=== PATIENT | male | born 1955 | race Caucasian/White ===

== ENCOUNTER 2020-12-19 06:11 | Inpatient (IN) | payer MEDICAID, SELFPAY ==
[2020-12-19] VITALS (12 sets, daily range): BP systolic 131–148; BP diastolic 59–84; PULSE 70–87; RESP 16–22; TEMP 36.3–37; O2SAT 91–96; BMI 41.1
--- NOTE | 2020-12-19 03:58 | PCM.HP.STD ---
HPI - General General Date of Admission: 12/19/20 HPI Narrative JAYDA MORE, is a 65 M with a significant history of hypertension; diabetes mellitus; asthma who presents to [facility] with a Covid-like symptoms. Patient was at [facility] ED 2 times. His rapid Covid antigen at [facility] ED was negative. His PCR came back to be positive. The first time he was sent home and then called back in for monoclonal antibody infusion. On his second visit patient was hypoxic and required 4 L of nasal cannula oxygen to maintain appropriate saturation. Patient reported that his Covid-like symptoms has progressed. It started about 6 days prior to presenting to [facility] ED. He described the symptoms as shortness of breath; disequilibrium with walking; muscle aches; poor appetite; dysgeusia; and dry cough. He denies any nausea vomiting, diarrhea or constipation. [facility], LATER [facility] Medical History Asthma Diabetes Home Medications Zyrtec-D DAILY 12/19/20 [History Last Taken 12/18/20] lisinopril 12/19/20 [History Last Taken Unknown] metformin 500 mg PO BID 12/19/20 [History Last Taken 12/18/20 10:00] pravastatin 10 mg PO QHS 12/19/20 [History Last Taken Unknown] Allergy/AdvReac Type Severity Reaction Status Date / Time acetaminophen [From [place]] AdvReac Mild Other Verified 12/19/20 04:07 empagliflozin AdvReac Vomiting Verified 12/19/20 04:06 [From [place]] hydrocodone [From [place]] AdvReac Other Verified 12/19/20 04:06 Family History Other CVA (cerebral vascular accident) Diabetes Surgical History (Updated 12/19/20 @ 04:[address] Michele Briones MD) History of prostate surgery Social History Smoking Status: Former smoker ROS ROS Narrative Constitutional: Reports anorexia. Denies fever, chills, fatigue, and change in weight Eyes: Denies blurry vision, change in eye color, change in vision, discharge from eye(s), double vision, erythema, eye pain, loss of vision or other HEENT: Denies abnormal hearing, dysphagia, ear pain, epistaxis, headache(s), hearing loss, nasal congestion, nasal discharge, post nasal drip, sinus pressure, sore throat or other Cardiovascular: Denies chest pain or palpitations. Respiratory/Chest: Reports dry cough and shortness of breath. Gastrointestinal: Denies abdominal pain, coffee ground emesis, constipation, diarrhea, dyspepsia, hematemesis, hematochezia, loose stools, melena, nausea, vomiting or other Genitourinary: Denies burning urination, difficulty urinating, dysuria, hematuria, nocturia, urinary frequency, urinary hesitancy, urinary incontinence, urinary urgency or other Musculoskeletal: Denies arthralgias, back pain, joint pain, joint stiffness, joint swelling, myalgias, neck pain or other Neurologic: Reports headache. Denies abnormal gait, abnormal speech, confusion, disequilibrium, dizziness, focal weakness, numbness, paresthesias, seizure-like activity, seizures, syncope, tingling, tremor(s) or other Psychiatric: Denies anxiety, depression, homicidal ideation, suicidal ideation or other Endocrinology: Denies change in body appearance, cold intolerance, excessive sweating, heat intolerance, polydipsia, polyuria or other Hematologic/Lymphatic: Denies anemia, easy bleeding, easy bruising, lymphadenopathy or other Integumentary: Denies rashes Allergic/Immunologic: Denies rhinitis, hives, eczema, asthma or other Vital Signs Vital Signs Vital Signs: Weight Weight: 126.4 kg Body Mass Index (BMI) 41.1 Physical Exam Narrative Physical exam: General: Obese Head: Normocephalic, atraumatic, no tenderness Eyes: PERRLA, EOMI ENT, no trauma, moist mucous membranes, no rhinorrhea Neck: Nontender, full range of motion, no spinal tenderness, deformities, step-off CVS: Regular rate and rhythm. S1-S2 present. No murmur, gallop or rub. Respiratory : Tachypnea clear to auscultation bilaterally, chest wall nontender, no wheezing Abdomen: Soft, nontender, nondistended, normal bowel sounds, no masses : Deferred Back: Nontender, no CVA tenderness, no midline spinal tenderness, deformities, step-offs Extremities: Nontender full range of motion, no trauma Skin: Normal color, no trauma, abrasions Neuro: Alert, oriented, cranial nerves II through XII grossly intact. Psychiatry: Normal mood. Normal affect. Not depressed. Not anxious. Assessment & Plan Assessment/Plan (1) Pneumonia due to COVID-19 virus: (2) Respiratory failure: QUALIFIERS: Chronicity: acute Respiratory failure complication: hypoxia Qualified Code(s): J96.01 - Acute respiratory failure with hypoxia PLAN: Acute hypoxemic respiratory failure secondary to COVID-19 pneumonia. Respiratory rate more than 20 and requiring supplemental oxygenation. Positive coronavirus PCR at outside ED Impression of chest x-ray by radiologist at outside hospital ED: Left lung infiltrate. Chest x-ray was independently interpreted by myself. Left lower lung infiltrate noted. Also a perihilar area with infiltrates with border of right heart not visualized. A CT brain at outside hospital ED did not show acute disease. Review of labs showed normal high sensitive pointing at outside hospital. Lactic acid at outside hospital was normal Check procalcitonin. Received Decadron at outside hospital. Received ceftriaxone and azithromycin at outside hospital. Ceftriaxone and azithromycin ordered. Estimated GFR at outside hospital is 37. AST 74 and ALT is 43. Remdesivir ordered. Trend CMP. Infectious disease consults for consideration of baricitinib. Tylenol for fever Mucinex ordered History of diabetes mellitus Not on insulin at home. In the setting of starting patient on Decadron will order Accu-Chek QA CHS and correction scale insulin. Hyponatremia Review of labs showed sodium of 129 at outside hospital. Patient received IV fluids at outside hospital. With COVID-19 will avoid fluid at this time. Trend CMP. Debility secondary to COVID-19 PT and OT to work with patient. BMI: 41.2. Complicates care. Lifestyle modification recommended. CKD stage IIIb Stable. Per discussion with outside hospital ED who had some available records creatinine clearance was about baseline. Trend CMP DVT prophylaxis: Subcutaneous Lovenox ordered. Charges/Coding Visit Charges Inpatient E&M: 18275 Init Hosp L3
--- NOTE | 2020-12-19 04:19 | NURSING ---
PANDEMIC DOCUMENTATION
[2020-12-19] MEDS: guaiFENesin 1,200 MG Tablet 1200 MG PO ×2 (04:38→22:18)
[2020-12-19 05:39] LABS: Absolute Lymphocyte Count 0.75 X10^3/uL (0.83-4.51); Absolute Neutrophil Count 2.1 X10^3/uL (2.0-7.7); Basophil# 0.01 X10^3/uL; Basophil% 0.3 % (0-1); Hematocrit 37.7 % (40-54); Hemoglobin 12.9 g/dL (13.0-16.5); Lymphocyte # 0.75 X10^3/ul (0.83-4.51); Lymphocyte % 25.3 % (19-41); Mean Corp Hgb Conc 34.2 g/dL (32-36); Mean Corpuscular Hgb 31.7 pg (27.0-32.0); Mean Corpuscular Volume 92.6 fL (80-94); Mean Platelet Vol. 9.8 fl (6.2-12.0); Monocyte# 0.12 X10^3/uL; NRBC Flagged by Analyzer 0 % (0-5); Neutrophil # 2.08 X10^3/uL (2.7-7.7); Neutrophil % 70.1 % (47-70); POSITIVE COUNT YES; POSITIVE MORPHOLOGY YES; Platelet Count 61 K/mm3 (150-450); RBC Distribution Width CV 13.7 % (11.6-14.6); Red Blood Count 4.07 M/mm3 (4.6-6.2)
[2020-12-19 05:43] LABS: Differential Indicated SCAN CRITERIA MET
[2020-12-19 06:12] LABS: ALB/GLOB Ratio 0.6 RATIO (0.9-2.4); AST(SGOT) 64 U/L (15-37); Alanine Aminotransfer ALT/SGPT 41 U/L (16-61); Albumin, Serum 2.8 g/dL (3.2-5.0); Alkaline Phosphatase 58 U/L (45-117); Anion Gap 10 (5-15); BUN 26 mg/dL (7-18); BUN/Creat Ratio 17.3 RATIO (10-20); Calcium,Total 8.1 mg/dL (8.5-10.1); Chloride 102 mmol/L (98-107); EST Glomerular Filtration Rate 50 mL/min (>60); Est Glom Filt Rate - Afr Amer 61 mL/min (>60); Estimated Creatinine Clearance 50.41 ml/min; Globulin 4.7 g/dL (2.2-4.2); Glucose 147 mg/dL (74-106); Potassium 4.9 mmol/L (3.5-5.1); Protein, Total 7.5 g/dL (6.4-8.2); Sodium Level 132 mmol/L (136-145)
--- NOTE | 2020-12-19 09:47 | CT_ITS ---
STUDY: CTA CHEST REASON FOR EXAM: Male, 65 years old. Elevated Ddimer.Covid positive. RADIATION DOSAGE (If Supplied By Facility): CTDIvol = ( 12.67 ) mGy, DLP = ( 475.64 ) mGycm TECHNIQUE: The examination was performed with the intravenous administration of IV 100mL Isovue-370. Post-processing of the angiographic images was performed, with multiplanar reformation and 3D reconstruction. Individualized dose optimization techniques were used for this CT. COMPARISON: None. FINDINGS: Normal enhancement of the main pulmonary artery and right and left pulmonary arteries. Normal enhancement of the bilateral peripheral pulmonary arteries. There is no demonstrated pulmonary embolism. Normal thoracic aorta and visualized great vessels. There is no demonstrated aortic dissection. Normal heart and pericardium. Normal mediastinum. Normal hilar regions. Normal visualized trachea and bronchi. The lungs are well expanded. There are diffuse bilateral pulmonary infiltrates worse in the left hemithorax and in the lower lobes as well as upper lobes. Normal pleura. Normal chest wall structures. There are degenerative changes of thoracic spine. Fatty attrition of the liver. Mild splenomegaly. Small hiatal hernia. CT/CTA Chest W/WO Contrast IMPRESSION: No evidence of pulmonary embolism. Bilateral diffuse pulmonary infiltrates involving both upper and lower lobes as described. Electronically Signed: Mihai Jerome MD at 11:00 EDT , Service support ,
[2020-12-19] MEDS: dexAMETHasone 2 MG TABLET 6 MG PO (09:48)
[2020-12-19] MEDS: Enoxaparin 40 MG/0.4 ML Syringe SC ×2 (09:48→22:18)
[2020-12-19 11:03] LABS: Procalcitonin 0.12 ng/mL (0.00-0.09)
[2020-12-19] MEDS: Insulin Lispro 100 UNIT/ML INSULN.PEN SC ×3 (13:24→22:35)
[2020-12-19 13:36] LABS: Bedside Glucose 289 mg/dL (70-110)
--- NOTE | 2020-12-19 14:01 | PCM.CONS.GEN ---
Assessment & Plan Assessment/Plan (1) Pneumonia due to COVID-19 virus: PLAN: Unvaccinated. Covid started 12/12/20. On 4-5L NC here. On dex, remdesivir. Isolate until 01/01. Recommended vaccine once out of iso. Feeling better. Will follow, thank you (2) Respiratory failure: QUALIFIERS: Chronicity: acute Respiratory failure complication: hypoxia Qualified Code(s): J96.01 - Acute respiratory failure with hypoxia HPI Consult Data Date of Consult: 12/19/20 HPI Narrative HPI Narrative: JAYDA MORE, is a 65 M [facility], dyspnea, not feeling well. Sx started around 12/12/20, he thought it was sinusitis. Had some headache, sweats, fatigue, change in taste, dry cough. Unvaccinated. Lives with who is vaccinated and her son; both asymptomatic. Worsening sx, came back, transferred here, started on dex and remdesivir. Feeling better today, appetite has returned. Full ROS performed and neg except as noted above PFSH Medical History Asthma Diabetes Home Medications Zyrtec-D DAILY 12/19/20 [History Last Taken 12/18/20] lisinopril 12/19/20 [History Last Taken Unknown] metformin 500 mg PO BID 12/19/20 [History Last Taken 12/18/20 10:00] pravastatin 10 mg PO QHS 12/19/20 [History Last Taken Unknown] Allergy/AdvReac Type Severity Reaction Status Date / Time acetaminophen [From [place]] AdvReac Mild Other Verified 12/19/20 04:07 empagliflozin AdvReac Vomiting Verified 12/19/20 04:06 [From [place]] hydrocodone [From [place]] AdvReac Other Verified 12/19/20 04:06 Family History Other CVA (cerebral vascular accident) Diabetes Surgical History (Updated 12/19/20 @ 04:[address] Michele Briones MD) History of prostate surgery Social History Smoking Status: Former smoker Physical Exam Const alert, oriented x3 and no apparent distress General Appearance: cooperative Exam Limitations: no limitations HEENT normocephalic and head/scalp atraumatic Eyes PERRL and EOMs intact bilaterally Neck supple and No nodes Resp Auscultation: diminished lung sounds Cardio regular rate and regular rhythm GI normal to inspection, nondistended, normoactive bowel sounds Extremity no clubbing, cyanosis or edema Skin no rashes or lesions noted Neuro CN's II-XII intact bilaterally Medical Records Data Medical Nutrition Assessment Dietitian: Malnutrition Criteria Met Start: 12/19/20 09:54 Freq: Status: Active Protocol: Document 12/19/20 09:54 [facility] (Rec: 12/19/20 09:54 [facility] [id number]) Nutrition Malnutrition Evidence of Malnutrition Exists Yes Malnutrition (severe): Acute Illness/Injury Evidenced By Suboptimal Energy Intake ( Severe),Weight Loss (Severe) Clinical Problem Acute Disease or Injury Related Malnutrition Etiology related to COVID/resp failure and inability to consume adequate nutrition to meet est nutritional needs Signs/Symptoms related to <50% x 3-4 days 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 Problem Recommendation Dietitian Recommendations/Changes Will change diet to CHO Control w/ 120 ml glucerna shake w/ meals for nursing convenience Will d/c ONS w/ medpass Lab / Micro Data Result Diagrams: 12/19/20 05:15 12/19/20 05:15 Labs: Laboratory Results - last 24 hr 12/19/20 05:15: Procalcitonin 0.12 H 12/19/20 05:15: Sodium 132 L, Potassium 4.9, Chloride 102, Carbon Dioxide 20.0 L, Anion Gap 10, BUN 26 H, Creatinine 1.50 H, Estim Creat Clear Calc 50.41, Est GFR (MDRD) Af Amer 61, Est GFR (MDRD) Non-Af 50 L, BUN/Creatinine Ratio 17.3, Glucose 147 H, Calcium 8.1 L, Total Bilirubin 0.50, AST 64 H, ALT 41, Alkaline Phosphatase 58, Total Protein 7.5, Albumin 2.8 L, Globulin 4.7 H, Albumin/Globulin Ratio 0.6 L 12/19/20 05:15: WBC 3.0 L, RBC 4.07 L, Hgb 12.9 L, Hct 37.7 L, MCV 92.6, MCH 31.7, MCHC 34.2, RDW Std Deviation 47.0 H, RDW Coeff of Luke 13.7, Plt Count 61 L, MPV 9.8, Immature Gran % (Auto) 0.300, Neut % (Auto) 70.1 H, Lymph % (Auto) 25.3, [place] % (Auto) 4.0, Eos % (Auto) 0.0, Baso % (Auto) 0.3, Absolute Neuts (auto) 2.1, Absolute Lymphs (auto) 0.75 L, Nucleated RBC % 0 12/19/20 09:45: COVID-19 ([place]) Detected 12/19/20 13:17: POC Glucose 289 H Radiology Impression Chest CTA 12/19/20 09:47 IMPRESSION: No evidence of pulmonary embolism. Bilateral diffuse pulmonary infiltrates involving both upper and lower lobes as described. Electronically Signed: Mihai Jerome MD at 11:00 EDT , Service support ,
--- NOTE | 2020-12-19 14:13 | CASEMGMT ---
STEVIE LILLY assessment: Initial transition planning/care coordination assessment. RN MAXX introduced self and role at [facility], pt voices understanding and consents to assessment. Pt is on 5L nc in no distress and able to speak in full sentences. Pt is A/Ox4 and answers all questions appropriately. Pt states has no symptoms and states no concerns getting groceries/resources once home. Pt states has not been vaccinated for COVID. Care providers, pharmacy, and demographics verified/updated. Presentation: Direct admit from [facility] for COVID w/ hypoxia Admitting dx: COVID PCP: Kwame Krishna Specialists: elma Santiago; ayush Goldstein Preferred Pharmacy: [facility] Insurance: [employer] Prescription Benefit: [id number] Living Will/HPOA: Pt states does not have LW/HPOA and declines AD info. LNOK: Miguelina Redding, Living Arrangements: Pt states lives with in mobile home with no steps and states no concerns at home. Pt is independent with ADL's. Transportation: Pt states drives self and states no transportations concerns. DME/HHC: Pt states has a cpap thru [employer](which is closed) and last got supplies thru [facility]. Pt states no hx of HHC or SNF. Pt states no concerns with going home at time of discharge. Pt is semi-retired. Pt states does not smoke cigarettes or drink ETOH. Pt states no further concerns/needs. CM to follow for home oxygen and any further discharge planning/needs. Advised pt to ask for CM if any further questions/concerns/needs arise, voices understanding. Pt Goal: Home Plan: Home, pending home oxygen testing. [place] STEVIE LILLY
--- NOTE | 2020-12-19 14:41 | PCM.HOSP.N ---
Hospitalist Note Patient is a 65-year-old gentleman who presented with progressive shortness of breath with associated cough and generalized malaise. Symptoms started on 12/12/2020. Had apparently been seen at [facility] discharged home however his symptoms worsened resulting in patient presenting to the [facility]. An assessment of acute hypoxic respiratory failure secondary to SARS-CoV-2 pneumonia made admitted to a monitored bed for subsequent management Patient seen and examined, his initial assessment including history and physical, diagnostic data and management orders reviewed will follow
[2020-12-19 16:51] LABS: Bedside Glucose 284 mg/dL (70-110)
[2020-12-19] MEDS: Acetaminophen 325 MG Tablet 650 MG PO (22:25)
[2020-12-19 22:56] LABS: Bedside Glucose 269 mg/dL (70-110)
[2020-12-20] VITALS (9 sets, daily range): BP systolic 120–150; BP diastolic 65–90; PULSE 57–79; RESP 16–20; TEMP 36.3–36.4; O2SAT 91–94
[2020-12-20] MEDS: Acetaminophen 325 MG Tablet 650 MG PO ×3 (04:29→18:38)
[2020-12-20 06:58] LABS: Absolute Lymphocyte Count 0.73 X10^3/uL (0.83-4.51); Absolute Neutrophil Count 4.4 X10^3/uL (2.0-7.7); Hematocrit 37.5 % (40-54); Hemoglobin 12.9 g/dL (13.0-16.5); Lymphocyte # 0.73 X10^3/ul (0.83-4.51); Lymphocyte % 13.4 % (19-41); Mean Corp Hgb Conc 34.4 g/dL (32-36); Mean Corpuscular Hgb 31.5 pg (27.0-32.0); Mean Corpuscular Volume 91.5 fL (80-94); Mean Platelet Vol. 10.7 fl (6.2-12.0); Monocyte# 0.24 X10^3/uL; Monocyte% 4.4 % (0-10); NRBC Flagged by Analyzer 0 % (0-5); Neutrophil # 4.43 X10^3/uL (2.7-7.7); Neutrophil % 81.6 % (47-70); POSITIVE COUNT YES; Platelet Count 76 K/mm3 (150-450); RBC Distribution Width CV 13.2 % (11.6-14.6); RBC Distribution Width SD 44.5 fl (35.1-43.9); White Blood Count 5.4 K/mm3 (4.4-11.0)
[2020-12-20 07:27] LABS: ALB/GLOB Ratio 0.5 RATIO (0.9-2.4); AST(SGOT) 52 U/L (15-37); Alanine Aminotransfer ALT/SGPT 43 U/L (16-61); Albumin, Serum 2.5 g/dL (3.2-5.0); Alkaline Phosphatase 62 U/L (45-117); Anion Gap 11 (5-15); BUN 34 mg/dL (7-18); BUN/Creat Ratio 24.5 RATIO (10-20); Calcium,Total 8.7 mg/dL (8.5-10.1); Chloride 105 mmol/L (98-107); Creatinine, Serum 1.39 mg/dL (0.70-1.30); EST Glomerular Filtration Rate 55 mL/min (>60); Est Glom Filt Rate - Afr Amer 66 mL/min (>60); Globulin 4.7 g/dL (2.2-4.2); Glucose 221 mg/dL (74-106); Magnesium 1.9 mg/dL (1.6-2.6); Potassium 4.6 mmol/L (3.5-5.1); Protein, Total 7.2 g/dL (6.4-8.2); Sodium Level 134 mmol/L (136-145)
[2020-12-20] MEDS: Insulin Lispro 100 UNIT/ML INSULN.PEN SC ×4 (08:32→21:19)
[2020-12-20] MEDS: Enoxaparin 40 MG/0.4 ML Syringe SC ×2 (08:45→21:19)
[2020-12-20] MEDS: guaiFENesin 1,200 MG Tablet 1200 MG PO ×2 (08:45→21:19)
[2020-12-20] MEDS: dexAMETHasone 2 MG TABLET 6 MG PO (08:45)
[2020-12-20 08:56] LABS: Bedside Glucose 199 mg/dL (70-110)
--- NOTE | 2020-12-20 12:14 | PN.HOSP_ITS ---
Documented by User: Suzanna Roche [employer] 12/20/20 12:25 Subjective Subjective Patient seen and examined. Patient states that he is feeling better. Patient on 3 L nasal cannula oxygen. Patient sitting in bed no distress noted. Objective Data Objective Data Vital Signs: Vital Signs Temp Pulse Resp BP Pulse Ox 97.6 F L 62 16 120/65 93 12/20/20 10:00 12/20/20 10:00 12/20/20 10:00 12/20/20 10:00 12/20/20 10:00 Oxygen Flow Rate (L/min) 3 Oxygen Delivery Method Nasal Cannula Weight: 278 lb 10.629 oz Body Mass Index (BMI) 41.1 Intake & Output: Intake and Output for Last 24 Hours 12/18/20 12/19/20 12/20/20 23:59 23:59 23:59 Intake Total 700 / 1400 950 / 950 Balance 700 / 1400 950 / 950 Medical Nutrition Assessment Dietitian: Malnutrition Criteria Met Start: 12/19/20 09:54 Freq: Status: Active Protocol: Document 12/19/20 09:54 [facility] (Rec: 12/19/20 09:54 [facility] [id number]) Nutrition Malnutrition Evidence of Malnutrition Exists Yes Malnutrition (severe): Acute Illness/Injury Evidenced By Suboptimal Energy Intake ( Severe),Weight Loss (Severe) Clinical Problem Acute Disease or Injury Related Malnutrition Etiology related to COVID/resp failure and inability to consume adequate nutrition to meet est nutritional needs Signs/Symptoms related to <50% x 3-4 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 Recommendation Dietitian Recommendations/Changes Will change diet to CHO Control w/ 120 ml glucerna shake w/ meals for nursing convenience Will d/c ONS w/ medpass Lab / Micro Data Result Diagrams: 12/20/20 06:17 12/20/20 06:17 Labs: Laboratory Results - last 24 hr 12/19/20 09:45: COVID-19 ([facility]) Detected 12/19/20 13:17: POC Glucose 289 H 12/19/20 16:38: POC Glucose 284 H 12/19/20 22:33: POC Glucose 269 H 12/20/20 06:17: WBC 5.4, RBC 4.10 L, Hgb 12.9 L, Hct 37.5 L, MCV 91.5, MCH 31.5, MCHC 34.4, RDW Std Deviation 44.5 H, RDW Coeff of Luke 13.2, Plt Count 76 L, MPV 10.7, Immature Gran % (Auto) 0.600, Neut % (Auto) 81.6 H, Lymph % (Auto) 13.4 L, [place] % (Auto) 4.4, Eos % (Auto) 0.0, Baso % (Auto) 0.0, Absolute Neuts (auto) 4.4, Absolute Lymphs (auto) 0.73 L, Nucleated RBC % 0 12/20/20 06:17: Sodium 134 L, Potassium 4.6, Chloride 105, Carbon Dioxide 18.0 L , Anion Gap 11, BUN 34 H, Creatinine 1.39 H, Estim Creat Clear Calc 54.40, Est GFR (MDRD) Af Amer 66, Est GFR (MDRD) Non-Af 55 L, BUN/Creatinine Ratio 24.5 H, Glucose 221 H, Calcium 8.7, Magnesium 1.9, Total Bilirubin 0.30, AST 52 H, ALT 43, Alkaline Phosphatase 62, Total Protein 7.2, Albumin 2.5 L, Globulin 4.7 H, Albumin/Globulin Ratio 0.5 L 12/20/20 08:30: POC Glucose 199 H Micro: Microbiology 12/19/20 20:40 Urine, Clean Catch Legionella Antigen - Final 12/19/20 20:40 Urine, Clean Catch Streptococcus pneumoniae Antigen (M - Davida l Physical Exam Const alert, oriented x3 and no apparent distress HEENT Head and Scalp: normocephalic Eyes conjunctivae normal and no scleral icterus Neck full ROM and supple General: trachea midline Resp normal respiratory effort and normal air movement Effort and Inspection: able to speak in complete sentences and symmetric chest movement Auscultation: diminished lung sounds Cardio regular rate, regular rhythm, S1 normal heart sound and S2 normal heart sound GI normal to inspection, nondistended, normoactive bowel sounds, soft to palpation and non-tender Extremity normal to inspection, full ROM and no clubbing, cyanosis or edema Peripheral Pulses: Yes pulses 2+ throughout Skin no rashes or lesions noted, no wounds and skin turgor normal Neuro oriented x3, moves all extremities, no focal motor deficits and no sensory deficits noted Sensorium / Orientation: awake and alert Speech: speech normal Psych affect normal Assessment & Plan Assessment/Plan (1) Pneumonia due to COVID-19 virus: (2) Respiratory failure: QUALIFIERS: Chronicity: acute Respiratory failure complication: hypoxia Qualified Code(s): J96.01 - Acute respiratory failure with hypoxia PLAN: 1. Acute respiratory failure secondary to COVID-19 pneumonia -Infectious disease following -Continue remdesivir and Decadron -Encourage incentive spirometry -CBC and CMP daily -Procalcitonin 0.12 -PT and OT following 2. Hyponatremia -Improved sodium 133 today -Daily CMP ordered 3. Diabetes mellitus type II -Continue AC at bedtime blood sugars with sliding scale insulin as ordered -Continue to hold Metformin 4. CKD stage IIIb -Stable patient at baseline creatinine -CMP daily DVT prophylaxis-Lovenox This patient was seen by CORTNEY Rodriguez under the supervision of Dr. Robbins. Documented by User: Dr. Claude Robbins MD 12/20/20 13:49 Objective Data Lab / Micro Data Result Diagrams: 12/20/20 06:17 12/20/20 06:17 Assessment & Plan Addt'l Comments This patient was seen in conjunction with CORTNEY Rodriguez . I have independently interviewed and examined the patient and reviewed pertinent historical, laboratory, and other data. Please refer to CORTNEY Rodriguez note for details of this patient's presentation, findings, and recommendations. I have reviewed CORTNEY Rodriguez note and concur with documented findings. In brief, patient is a 65-year-old gentleman unvaccinated against COVID-19 presented with progressive shortness of breath and assessment of SARS-CoV-2 pneumonia made admitted to monitored bed for subsequent management Physical Examination: GENERAL: cooperative HEENT: Atraumatic; EYES; Anicteric, Normal Conjunctiva NECK; supple, normal thyroid, RESPIRATORY: Diminished to auscultation CARDIOVASCULAR: Regular S1 S2, GI: soft, normoactive bowel sounds, : No Renal angle tenderness; EXTREMITIES: No edema, no clubbing, MUSCULOSKELETAL: no muscle waisting NEURO: Awake; no lateralizing signs. SKIN: No Rash PSYCH; Flat affect Assessment: 1. Acute hypoxic respiratory failure 2. SARS-CoV-2 pneumonia 3. Diabetes mellitus type 2 with hyperglycemia 4. CKD type III a 5. Essential hypertension 6. Dyslipidemia 7. Morbid obesity with BMI of 41.2 8. Physical deconditioning Recommendations: 1. I have discussed the results of my overview and impressions with the patient 2. Options for management were reviewed Charges/Coding Visit Charges Inpatient E&M: 85877 Subs Hosp L3
[2020-12-20 12:45] LABS: Bedside Glucose 320 mg/dL (70-110)
[2020-12-20] MEDS: Insulin Lispro 100 UNIT/ML INSULN.PEN 10 UNIT SC (16:44)
[2020-12-20 17:00] LABS: Bedside Glucose 315 mg/dL (70-110)
[2020-12-20 21:36] LABS: Bedside Glucose 338 mg/dL (70-110)
[2020-12-21] VITALS (13 sets, daily range): BP systolic 135–149; BP diastolic 44–84; PULSE 55–89; RESP 18–24; TEMP 36.3–36.7; O2SAT 90–100
--- NOTE | 2020-12-21 01:55 | PCS.PANDOC ---
PANDEMIC DOCUMENTATION INITIATED: Date: 10/17/2020 Time: 190
[2020-12-21 07:21] LABS: Absolute Lymphocyte Count 0.73 X10^3/uL (0.83-4.51); Absolute Neutrophil Count 5.2 X10^3/uL (2.0-7.7); Hematocrit 36.4 % (40-54); Hemoglobin 12.5 g/dL (13.0-16.5); Lymphocyte # 0.73 X10^3/ul (0.83-4.51); Lymphocyte % 11.7 % (19-41); Mean Corp Hgb Conc 34.3 g/dL (32-36); Mean Corpuscular Hgb 31.3 pg (27.0-32.0); Mean Corpuscular Volume 91.2 fL (80-94); Mean Platelet Vol. 10.5 fl (6.2-12.0); Monocyte# 0.27 X10^3/uL; Monocyte% 4.3 % (0-10); NRBC Flagged by Analyzer 0 % (0-5); Neutrophil # 5.17 X10^3/uL (2.7-7.7); Neutrophil % 82.9 % (47-70); POSITIVE COUNT YES; Platelet Count 88 K/mm3 (150-450); RBC Distribution Width CV 13.2 % (11.6-14.6); RBC Distribution Width SD 44.4 fl (35.1-43.9); Red Blood Count 3.99 M/mm3 (4.6-6.2); White Blood Count 6.2 K/mm3 (4.4-11.0)
[2020-12-21 07:47] LABS: ALB/GLOB Ratio 0.6 RATIO (0.9-2.4); AST(SGOT) 44 U/L (15-37); Alanine Aminotransfer ALT/SGPT 44 U/L (16-61); Albumin, Serum 2.5 g/dL (3.2-5.0); Alkaline Phosphatase 64 U/L (45-117); Anion Gap 8 (5-15); BUN 35 mg/dL (7-18); BUN/Creat Ratio 26.5 RATIO (10-20); Calcium,Total 8.7 mg/dL (8.5-10.1); Chloride 106 mmol/L (98-107); Creatinine, Serum 1.32 mg/dL (0.70-1.30); EST Glomerular Filtration Rate 58 mL/min (>60); Est Glom Filt Rate - Afr Amer 70 mL/min (>60); Estimated Creatinine Clearance 57.28 ml/min; Globulin 4.4 g/dL (2.2-4.2); Glucose 254 mg/dL (74-106); Potassium 4.7 mmol/L (3.5-5.1); Protein, Total 6.9 g/dL (6.4-8.2); Sodium Level 135 mmol/L (136-145)
[2020-12-21] MEDS: Enoxaparin 40 MG/0.4 ML Syringe SC ×2 (08:10→21:40)
[2020-12-21] MEDS: guaiFENesin 1,200 MG Tablet 1200 MG PO ×2 (08:11→21:40)
[2020-12-21] MEDS: dexAMETHasone 2 MG TABLET 6 MG PO (08:11)
[2020-12-21] MEDS: Insulin Lispro 100 UNIT/ML INSULN.PEN 10 UNIT SC ×3 (08:11→16:11)
[2020-12-21] MEDS: Insulin Lispro 100 UNIT/ML INSULN.PEN SC ×4 (08:12→21:37)
[2020-12-21 08:36] LABS: Bedside Glucose 233 mg/dL (70-110)
--- NOTE | 2020-12-21 09:22 | PCM.PN.HOSP ---
Documented by User: Suzanna Roche NP-C 12/21/20 09:51 Subjective Subjective Seen and examined. Patient requiring much more oxygen today went from 4 L nasal cannula oxygen to 15 L nasal cannula oxygen. Patient expresses shortness of breath with exertion. Patient does recover after period of 5 treatment 10 minutes of rest. Objective Data Objective Data Vital Signs: Vital Signs Temp Pulse Resp BP Pulse Ox 98.1 F 79 18 135/59 H 93 12/21/20 08:02 12/21/20 08:02 12/21/20 08:02 12/21/20 08:02 12/21/20 08:15 Oxygen Flow Rate (L/min) 3 Oxygen Delivery Method Nasal Cannula Weight: 278 lb 10.629 oz Body Mass Index (BMI) 41.1 Intake & Output: Intake and Output for Last 24 Hours 12/19/20 12/20/20 12/21/20 23:59 23:59 23:59 Intake Total 700 / 1400 1200 / 1200 900 / 900 Balance 700 / 1400 1200 / 1200 900 / 900 Medical Nutrition Assessment Dietitian: Malnutrition Criteria Met Start: 12/19/20 09:54 Freq: Status: Active Protocol: Document 12/19/20 09:54 SLA (Rec: 12/19/20 09:54 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 Problem Recommendation Dietitian Recommendations/Changes Will change diet to CHO Control w/ 120 ml glucerna shake w/ meals for nursing convenience Will d/c ONS w/ medpass Lab / Micro Data Result Diagrams: 12/21/20 06:48 12/21/20 06:48 Labs: Laboratory Results - last 24 hr 12/20/20 12:34: POC Glucose 320 H 12/20/20 16:42: POC Glucose 315 H 12/20/20 21:11: POC Glucose 338 H 12/21/20 06:48: WBC 6.2, RBC 3.99 L, Hgb 12.5 L, Hct 36.4 L, MCV 91.2, MCH 31.3, MCHC 34.3, RDW Std Deviation 44.4 H, RDW Coeff of Luke 13.2, Plt Count 88 L, MPV 10.5, Immature Gran % (Auto) 1.100 H, Neut % (Auto) 82.9 H, Lymph % (Auto) 11.7 L, [place] % (Auto) 4.3, Eos % (Auto) 0.0, Baso % (Auto) 0.0, Absolute Neuts (auto) 5.2, Absolute Lymphs (auto) 0.73 L, Nucleated RBC % 0 12/21/20 06:48: Sodium 135 L, Potassium 4.7, Chloride 106, Carbon Dioxide 21.0, Anion Gap 8, BUN 35 H, Creatinine 1.32 H, Estim Creat Clear Calc 57.28, Est GFR (MDRD) Af Amer 70, Est GFR (MDRD) Non-Af 58 L, BUN/Creatinine Ratio 26.5 H, Glucose 254 H, Calcium 8.7, Total Bilirubin 0.40, AST 44 H, ALT 44, Alkaline Phosphatase 64, Total Protein 6.9, Albumin 2.5 L, Globulin 4.4 H, Albumin/Globulin Ratio 0.6 L 12/21/20 07:51: POC Glucose 233 H Micro: Microbiology 12/19/20 20:40 Urine, Clean Catch Legionella Antigen - Final 12/19/20 20:40 Urine, Clean Catch Streptococcus pneumoniae Antigen (M - Final Physical Exam Const alert, oriented x3 and no apparent distress HEENT normocephalic and head/scalp atraumatic Eyes conjunctivae normal and no scleral icterus Neck full ROM and supple General: trachea midline Resp normal respiratory effort Effort and Inspection: able to speak in complete sentences and symmetric chest movement Auscultation: diminished lung sounds Cardio regular rate, regular rhythm, S1 normal heart sound and S2 normal heart sound GI normal to inspection, nondistended, normoactive bowel sounds, soft to palpation and non-tender Extremity normal to inspection, full ROM and no clubbing, cyanosis or edema Skin no rashes or lesions noted, no wounds and skin turgor normal Neuro oriented x3, moves all extremities, no focal motor deficits and no sensory deficits noted Sensorium / Orientation: awake and alert Speech: speech normal Psych affect normal Assessment & Plan Assessment/Plan (1) Pneumonia due to COVID-19 virus: (2) Respiratory failure: QUALIFIERS: Chronicity: acute Respiratory failure complication: hypoxia Qualified Code(s): J96.01 - Acute respiratory failure with hypoxia PLAN: 1. Acute respiratory failure secondary to COVID-19 pneumonia -Infectious disease following -Pulmonology consulted, discussed case with Dr. Ho. -Continue remdesivir and Decadron -Encourage incentive spirometry -CBC and CMP daily -Patient increased oxygen needs, was originally on 4 L nasal cannula at approximately 7 AM this morning however when patient got up to go the bathroom required 15 L nasal cannula oxygen. Patient currently on air Vo 45 L, 85%. Tolerating well -PT and OT following -Due to increased oxygen needs and worsening symptomology ferritin, LDH, CRP ordered and are elevated. D-dimer pending 2. Hyponatremia -Improved sodium 135 today -Daily CMP ordered 3. Diabetes mellitus type II -Continue AC at bedtime blood sugars with sliding scale insulin as ordered -Continue to hold Metformin 4. CKD stage IIIb -Stable patient at baseline creatinine -CMP daily DVT prophylaxis-Lovenox This patient was seen by CORTNEY Rodriguez under the supervision of Dr. Robbins. Documented by User: Dr. Claude Robbins MD 12/21/20 10:00 Objective Data Lab / Micro Data Result Diagrams: 12/21/20 06:48 12/21/20 06:48 Assessment & Plan Addt'l Comments This patient was seen in conjunction with CORTNEY Rodriguez . I have independently interviewed and examined the patient and reviewed pertinent historical, laboratory, and other data. Please refer to CORTNEY Rodriguez note for details of this patient's presentation, findings, and recommendations. I have reviewed CORTNEY Rodriguez note and concur with documented findings. In brief, patient is a 65-year-old gentleman unvaccinated against COVID-19 presented with progressive shortness of breath and assessment of SARS-CoV-2 pneumonia made admitted to monitored bed for subsequent management 03/23/2020; patient seen this minute rather rapid deterioration in patient oxygen saturation requiring patient being switched from oxygen via nasal cannula to Vapotherm. Ordered markers of inflammation to determine qualification for baricitinib. Consult subsequently placed to both infectious disease as well as ID Physical Examination: GENERAL: cooperative HEENT: Atraumatic; EYES; Anicteric, Normal Conjunctiva NECK; supple, normal thyroid, RESPIRATORY: Diminished to auscultation CARDIOVASCULAR: Regular S1 S2, GI: soft, normoactive bowel sounds, : No Renal angle tenderness; EXTREMITIES: No edema, no clubbing, MUSCULOSKELETAL: no muscle waisting NEURO: Awake; no lateralizing signs. SKIN: No Rash PSYCH; Flat affect Assessment: 1. Acute hypoxic respiratory failure 2. SARS-CoV-2 pneumonia 3. Diabetes mellitus type 2 with hyperglycemia 4. CKD type III a 5. Essential hypertension 6. Dyslipidemia 7. Morbid obesity with BMI of 41.2 8. Physical deconditioning Recommendations: 1. I have discussed the results of my overview and impressions with the patient 2. Options for management were reviewed Charges/Coding Visit Charges Inpatient E&M: 44888 Subs Hosp L3
[2020-12-21 09:46] LABS: Ferritin 547 ng/mL (26-388); LDH 337 U/L (87-241)
[2020-12-21 11:15] LABS: Bedside Glucose 242 mg/dL (70-110)
--- NOTE | 2020-12-21 12:11 | CON.PCM.CC_ITS ---
Assessment & Plan Assessment/Plan (1) Respiratory failure: QUALIFIERS: Chronicity: acute Respiratory failure complication: hypoxia Qualified Code(s): J96.01 - Acute respiratory failure with hypoxia (2) Pneumonia due to COVID-19 virus: PLAN: RECOMMENDATIONS: 1. Continue to wean FiO2 to maintain oxygen saturations at or above 90%. 2. Follow-up with infectious diseases regarding possible baricitinib administration. 3. Continue remdesivir to complete 5-day treatment course. Continue to monitor liver and renal function. 4. Continue Decadron to complete 10 days of therapy. 5. Continue Lovenox twice daily as ordered. 6. Consider starting empiric antimicrobials, given clinical decompensation. 7. Recheck D-dimer. 8. Awake prone positioning was encouraged. 9. BiPAP can be utilized if oxygenation status worsens. IMPRESSIONS: 1. Acute hypoxemic respiratory failure secondary to COVID-19 pneumonia Symptom onset was initially around December 12. Over the course of his hospitalization, the patient's oxygenation status has slowly worsened. He is now requiring heated high flow oxygen. The patient has been maintained on remdesivir, Decadron and Lovenox. Given clinical decompensation, he may be a candidate for baricitinib. In addition to the aforementioned, given his clinical worsening, recommend starting empiric antimicrobials. Diuretics can be utilized as needed to maintain euvolemic state. Awake prone positioning was encouraged. 2. Morbid obesity/diabetes mellitus/chronic kidney disease Complicates care, management, recovery and prognosis. Continue home medications as indicated. This note was generated with [employer] dictation software. It may contain incorrect words, spelling, and punctuation that were not noted in checking the note before signing. HPI Consult Data Date of Consult: 12/21/20 HPI Narrative Reason for Consultation: Acute hypoxemic respiratory failure secondary to COVID- 19 pneumonia HPI Narrative: The patient is a 65-year-old male, with a history as outlined below, who presented from [facility] on December 19 with cough, malaise, dyspnea and hypoxemia. The patient initially tested positive for coronavirus and was referred to receive monoclonal antibody infusion. However, the patient was noted to be hypoxemic and was therefore no longer a candidate. He is unvac cinated. 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 On presentation, the patient was initially noted to be afebrile and hemodynamically stable. He was maintaining appropriate oxygen saturations on nasal cannula supplemental O2 at 5 L/min. Initial laboratory evaluation reveale d evidence of thrombocytopenia with a platelet count of 61,000. Chemistry profile was notable for a sodium of 132, BUN of 26 and creatinine of 1.50. AST was mildly elevated to 64. Procalcitonin was noted to be 0.12. Coronavirus PCR was positive. CTA chest showed no evidence for pulmonary embolism, but did demonstrate bilateral airspace disease. The patient was placed on remdesivir, Decadron and prophylactic Lovenox. He was subsequently admitted to the progressive care unit for further management. Over the course of his hospitalization, the patient's oxygenation status has slowly worsened. This morning, the patient had to be transitioned from nasal cannula supplemental O2 to Airvo heated high flow with an FiO2 requirement of 85% and flow rate of 45 L/min. [facility] Medical History Asthma Diabetes Home Medications Zyrtec-D DAILY 12/19/20 [History Last Taken 12/18/20] lisinopril 12/19/20 [History Last Taken Unknown] metformin 500 mg PO BID 12/19/20 [History Last Taken 12/18/20 10:00] pravastatin 10 mg PO QHS 12/19/20 [History Last Taken Unknown] Allergy/AdvReac Type Severity Reaction Status Date / Time acetaminophen [From Minerva] AdvReac Mild Other Verified 12/19/20 04:07 empagliflozin AdvReac Vomiting Verified 12/19/20 04:06 [From Jardiance] hydrocodone [From Minerva] AdvReac Other Verified 12/19/20 04:06 Family History Other CVA (cerebral vascular accident) Diabetes Surgical History (Updated 12/19/20 @ 04:[address] Michele Briones MD) History of prostate surgery Social History Smoking Status: Former smoker ROS Constitutional Constitutional: Reports fatigue, malaise and weakness Eyes Eyes: Denies blurry vision or change in vision ENT HEENT: Reports nasal congestion and nasal discharge; Denies dizziness, dysphagia or epistaxis Cardiovascular Cardiovascular: Reports dyspnea; Denies chest pain Respiratory/Chest Respiratory/Chest: Reports cough and dyspnea Gastrointestinal Gastrointestinal: Denies abdominal pain, diarrhea, nausea or vomiting Genitourinary Genitourinary: Denies difficulty urinating Musculoskeletal Musculoskeletal: Reports myalgias; Denies arthralgias Integumentary Integumentary: Denies lesions, rash or skin ulcer Neurologic Neurologic: Denies abnormal gait, abnormal speech or confusion Psychiatric Psychiatric: Denies anxiety or depression Endocrine Endocrinology: Reports fatigue Hematologic/Lymphatic Hematologic/Lymphatic: Denies easy bleeding or easy bruising Physical Exam Const alert and no apparent distress Constitutional Narrative: Sitting in bedside recliner on Airvo heated high flow. General Appearance: cooperative Nutritional Appearance: morbidly obese HEENT normocephalic, head/scalp atraumatic and moist oral mucous membranes Eyes PERRL and EOMs intact bilaterally Neck supple General: trachea midline Chest inspection of chest normal Resp Auscultation: diminished lung sounds Cardio regular rate and regular rhythm GI normal to inspection, nondistended, normoactive bowel sounds Extremity no clubbing, cyanosis or edema Skin no rashes or lesions noted Neuro moves all extremities and no focal motor deficits Psych cooperative and affect normal Medical Records Data Medical Nutrition Assessment Dietitian: Malnutrition Criteria Met Start: 12/19/20 09:54 Freq: Status: Active Protocol: Document 12/19/20 09:54 NICOLE (Rec: 12/19/20 09:54 [facility] [id number]) Nutrition Malnutrition Evidence of Malnutrition Exists Yes Malnutrition (severe): Acute Illness/Injury Evidenced By Suboptimal Energy Intake ( Severe),Weight Loss (Severe) Clinical Problem Acute Disease or Injury Related Malnutrition Etiology related to COVID/resp failure and inability to consume adequate nutrition to meet est nutritional needs Signs/Symptoms related to <50% x 3-4 days and 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 Problem Recommendation Dietitian Recommendations/Changes Will change diet to CHO Control w/ 120 ml glucerna shake w/ meals for nursing convenience Will d/c ONS w/ medpass Lab / Micro Data Result Diagrams: 12/21/20 06:48 12/21/20 06:48 Labs: Laboratory Results - last 24 hr 12/20/20 12:34: POC Glucose 320 H 12/20/20 16:42: POC Glucose 315 H 12/20/20 21:11: POC Glucose 338 H 12/21/20 06:48: WBC 6.2, RBC 3.99 L, Hgb 12.5 L, Hct 36.4 L, MCV 91.2, MCH 31.3, MCHC 34.3, RDW Std Deviation 44.4 H, RDW Coeff of Luke 13.2, Plt Count 88 L, MPV 10.5, Immature Gran % (Auto) 1.100 H, Neut % (Auto) 82.9 H, Lymph % (Auto) 11.7 L, [place] % (Auto) 4.3, Eos % (Auto) 0.0, Baso % (Auto) 0.0, Absolute Neuts (auto) 5.2, Absolute Lymphs (auto) 0.73 L, Nucleated RBC % 0 12/21/20 06:48: Sodium 135 L, Potassium 4.7, Chloride 106, Carbon Dioxide 21.0, Anion Gap 8, BUN 35 H, Creatinine 1.32 H, Estim Creat Clear Calc 57.28, Est GFR (MDRD) Af Amer 70, Est GFR (MDRD) Non-Af 58 L, BUN/Creatinine Ratio 26.5 H, Glucose 254 H, Calcium 8.7, Total Bilirubin 0.40, AST 44 H, ALT 44, Alkaline Phosphatase 64, Total Protein 6.9, Albumin 2.5 L, Globulin 4.4 H, Albumin/Globulin Ratio 0.6 L 12/21/20 06:48: Ferritin 547 H, Lactate Dehydrogenase 337 H, C-React Prot Ext Range 18.10 H 12/21/20 07:51: POC Glucose 233 H 12/21/20 09:58: D-Dimer Quant (PE/DVT) 0.40 12/21/20 11:10: POC Glucose 242 H Charges/Coding Visit Charges Inpatient E&M: 98666 Init Hosp L3
--- NOTE | 2020-12-21 13:45 | PN.ID_ITS ---
Physical Exam Narrative Worsened O2. Feeling ok, no fever, no chest pain, no sputum Const alert General Appearance: cooperative Resp Auscultation: diminished lung sounds Cardio Rate: tachycardic GI normal to inspection, nondistended, normoactive bowel sounds Skin no rashes or lesions noted ID ID: Route of nutrition/ use of supplements: [] Nutritional Intake: [] IV Site: [] Land Catheter: [] Assessment & Plan Assessment/Plan (1) Pneumonia due to COVID-19 virus: PLAN: Unvaccinated. Covid started 12/12/20. On 4-5L NC here, now much worsened, on airvo. On dex, remdesivir. Isolate until 01/01. Recommended vaccine once out of iso. Reviewed EUA and risks/benefits, we agree to start bar icitinib. Will follow (2) Respiratory failure: QUALIFIERS: Chronicity: acute Respiratory failure complication: hypoxia Qualified Code(s): J96.01 - Acute respiratory failure with hypoxia
[2020-12-21 16:16] LABS: Bedside Glucose 295 mg/dL (70-110)
[2020-12-21 17:44] LABS: M R Staph aureus DNA By PCR Negative (Negative); Probe Check PASS; Specimen Processing Control PASS
[2020-12-21 21:55] LABS: Bedside Glucose 366 mg/dL (70-110)
[2020-12-21] MEDS: Acetaminophen 325 MG Tablet 650 MG PO (22:03)
[2020-12-22] VITALS (13 sets, daily range): BP systolic 120–150; BP diastolic 51–96; PULSE 46–77; RESP 16–18; TEMP 36.6–37; O2SAT 90–100
[2020-12-22 06:38] LABS: Basophil# 0.01 X10^3/uL; Basophil% 0.2 % (0-1); Hematocrit 35.4 % (40-54); Hemoglobin 12.3 g/dL (13.0-16.5); Lymphocyte % 17.6 % (19-41); Mean Corp Hgb Conc 34.7 g/dL (32-36); Mean Corpuscular Hgb 31.3 pg (27.0-32.0); Mean Corpuscular Volume 90.1 fL (80-94); Mean Platelet Vol. 10.4 fl (6.2-12.0); Monocyte% 3.9 % (0-10); NRBC Flagged by Analyzer 0 % (0-5); Neutrophil # 3.95 X10^3/uL (2.7-7.7); Neutrophil % 77.5 % (47-70); POSITIVE COUNT YES; POSITIVE MORPHOLOGY YES; Platelet Count 96 K/mm3 (150-450); RBC Distribution Width CV 13.2 % (11.6-14.6); RBC Distribution Width SD 43.7 fl (35.1-43.9); Red Blood Count 3.93 M/mm3 (4.6-6.2); White Blood Count 5.1 K/mm3 (4.4-11.0)
[2020-12-22 06:58] LABS: Differential Indicated SCAN CRITERIA MET
[2020-12-22 07:23] LABS: ALB/GLOB Ratio 0.6 RATIO (0.9-2.4); AST(SGOT) 57 U/L (15-37); Alanine Aminotransfer ALT/SGPT 45 U/L (16-61); Albumin, Serum 2.5 g/dL (3.2-5.0); Alkaline Phosphatase 59 U/L (45-117); Anion Gap 7 (5-15); BUN 36 mg/dL (7-18); BUN/Creat Ratio 25.9 RATIO (10-20); Calcium,Total 8.5 mg/dL (8.5-10.1); Chloride 107 mmol/L (98-107); Creatinine, Serum 1.39 mg/dL (0.70-1.30); EST Glomerular Filtration Rate 55 mL/min (>60); Est Glom Filt Rate - Afr Amer 66 mL/min (>60); Globulin 4.4 g/dL (2.2-4.2); Glucose 207 mg/dL (74-106); Protein, Total 6.9 g/dL (6.4-8.2); Reactive Lymphocyte 1+; Sodium Level 136 mmol/L (136-145)
[2020-12-22] MEDS: Insulin Lispro 100 UNIT/ML INSULN.PEN SC ×4 (08:17→22:10)
[2020-12-22] MEDS: Insulin Lispro 100 UNIT/ML INSULN.PEN 10 UNIT SC ×3 (08:17→16:18)
[2020-12-22] MEDS: guaiFENesin 1,200 MG Tablet 1200 MG PO ×2 (08:18→22:07)
[2020-12-22] MEDS: dexAMETHasone 2 MG TABLET 6 MG PO (08:18)
[2020-12-22] MEDS: Enoxaparin 40 MG/0.4 ML Syringe SC ×2 (08:18→22:07)
[2020-12-22 10:58] LABS: Bedside Glucose 187 mg/dL (70-110)
[2020-12-22 11:17] LABS: Bedside Glucose 406 mg/dL (70-110)
--- NOTE | 2020-12-22 12:41 | PN.HOSP_ITS ---
Subjective Subjective No issues overnight, given his clinical worsening continue with his baricitinib as well as remdesivir and empiric antibiotics, remains on air Vo Objective Data Objective Data Vital Signs: Vital Signs Temp Pulse Resp BP Pulse Ox 97.9 F 62 18 124/68 H 98 12/22/20 08:14 12/22/20 08:14 12/22/20 08:14 12/22/20 08:14 12/22/20 11:00 Oxygen Flow Rate (L/min) 50 Oxygen Delivery Method Airvo Weight: 278 lb 10.629 oz Body Mass Index (BMI) 41.1 Intake & Output: Intake and Output for Last 24 Hours 12/21/20 12/22/20 12/23/20 03:59 03:59 03:59 Intake Total 750 / 750 1850 / 1850 290 / 290 Output Total 400 / 400 600 / 600 Balance 750 / 750 1450 / 1450 -310 / -310 Medical Nutrition Assessment Dietitian: Malnutrition Criteria Met Start: 12/19/20 09:54 Freq: Status: Active Protocol: Document 12/19/20 09:54 NICOLE (Rec: 12/19/20 09:54 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 Problem Recommendation Dietitian Recommendations/Changes Will change diet to CHO Control w/ 120 ml glucerna shake w/ meals for nursing convenience Will d/c ONS w/ medpass Lab / Micro Data Result Diagrams: 12/22/20 06:15 12/22/20 06:15 Labs: Laboratory Results - last 24 hr 12/21/20 14:45: MRSA (PCR) Negative 12/21/20 16:10: POC Glucose 295 H 12/21/20 21:36: POC Glucose 366 H 12/22/20 06:15: WBC 5.1, RBC 3.93 L, Hgb 12.3 L, Hct 35.4 L, MCV 90.1, MCH 31.3, MCHC 34.7, RDW Std Deviation 43.7, RDW Coeff of Luke 13.2, Plt Count 96 L, MPV 10.4, Immature Gran % (Auto) 0.800, Neut % (Auto) 77.5 H, Lymph % (Auto) 17.6 L, [place] % (Auto) 3.9, Eos % (Auto) 0.0, Baso % (Auto) 0.2, Absolute Neuts (auto) 4.0, Absolute Lymphs (auto) 0.90, Nucleated RBC % 0, Reactive Lymphocytes 1+ 12/22/20 06:15: Sodium 136, Potassium 5.0, Chloride 107, Carbon Dioxide 22.0, Anion Gap 7, BUN 36 H, Creatinine 1.39 H, Estim Creat Clear Calc 54.40, Est GFR (MDRD) Af Amer 66, Est GFR (MDRD) Non-Af 55 L, BUN/Creatinine Ratio 25.9 H, Glucose 207 H, Calcium 8.5, Total Bilirubin 0.50, AST 57 H, ALT 45, Alkaline Phosphatase 59, Total Protein 6.9, Albumin 2.5 L, Globulin 4.4 H, Albumin/Globulin Ratio 0.6 L 12/22/20 08:08: POC Glucose 187 H 12/22/20 11:03: POC Glucose 406 H Micro: Microbiology 12/19/20 20:40 Urine, Clean Catch Legionella Antigen - Final 12/19/20 20:40 Urine, Clean Catch Streptococcus pneumoniae Antigen (M - Final Physical Exam Const alert, oriented x3 and no apparent distress General Appearance: cooperative HEENT normocephalic and moist oral mucous membranes Eyes PERRL, EOMs intact bilaterally and conjunctivae normal Neck supple and no JVD Resp normal respiratory effort, no retractions and no use of accessory muscles Auscultation: crackles and diminished lung sounds; Negative for rales, rhonchi o r wheezes Cardio regular rate, regular rhythm, S1 normal heart sound, S2 normal heart sound and no murmurs GI soft to palpation, non-tender and non-distended; Negative for hepatosplenomegaly Extremity no clubbing, cyanosis or edema Skin no rashes or lesions noted Neuro no focal motor deficits and no sensory deficits noted Psych affect normal Appearance: appropriate Assessment & Plan Assessment/Plan (1) Pneumonia due to COVID-19 virus: (2) Respiratory failure: QUALIFIERS: Chronicity: acute Respiratory failure complication: hypoxia Qualified Code(s): J96.01 - Acute respiratory failure with hypoxia PLAN: 1. Acute respiratory failure secondary to COVID-19 pneumonia -Appreciate infectious disease and pulmonology assistance -Continue remdesivir, baricitinib and Decadron -Encourage incentive spirometry -CBC and CMP daily -PT and OT following -CTA was negative for PE -We will give a dose of Lasix today and monitor 3. Diabetes mellitus type II -Continue AC at bedtime blood sugars with sliding scale insulin as ordered -Continue to hold Metformin -Continue with long-acting insulin and will make adjustments as necessary 4. CKD stage IIIb -Stable patient at baseline creatinine -CMP daily DVT: Lovenox Charges/Coding Visit Charges Inpatient E&M: 44711 Subs Hosp L2
[2020-12-22] MEDS: 0.9% Saline Lock 10 ML Syringe IV ×2 (13:58→22:06)
[2020-12-22] MEDS: Furosemide 40 MG/4 ML Vial IV (13:58)
[2020-12-22 16:26] LABS: Bedside Glucose 457 mg/dL (70-110)
[2020-12-22] MEDS: Acetaminophen 325 MG Tablet 650 MG PO (18:42)
--- NOTE | 2020-12-22 18:50 | CPS ---
increased fio2 to 93% and flow to 60l for low sat-pt encouraged to keep mouth closed
[2020-12-22 18:51] LABS: Bedside Glucose 398 mg/dL (70-110)
[2020-12-22 22:25] LABS: Bedside Glucose 374 mg/dL (70-110)
[2020-12-23] VITALS (17 sets, daily range): BP systolic 107–134; BP diastolic 63–76; PULSE 42–67; RESP 18–20; TEMP 36.4–36.9; O2SAT 89–99
[2020-12-23] MEDS: 0.9% Saline Lock 10 ML Syringe IV (06:31)
[2020-12-23 06:44] LABS: Absolute Lymphocyte Count 0.99 X10^3/uL (0.83-4.51); Absolute Neutrophil Count 5.2 X10^3/uL (2.0-7.7); Basophil# 0.01 X10^3/uL; Basophil% 0.2 % (0-1); Hematocrit 37.8 % (40-54); Hemoglobin 13.1 g/dL (13.0-16.5); Lymphocyte # 0.99 X10^3/ul (0.83-4.51); Lymphocyte % 15.3 % (19-41); Mean Corp Hgb Conc 34.7 g/dL (32-36); Mean Corpuscular Hgb 31.2 pg (27.0-32.0); Mean Platelet Vol. 11.1 fl (6.2-12.0); Monocyte# 0.24 X10^3/uL; Monocyte% 3.7 % (0-10); NRBC Flagged by Analyzer 0 % (0-5); Neutrophil # 5.17 X10^3/uL (2.7-7.7); Neutrophil % 79.7 % (47-70); Platelet Count 108 K/mm3 (150-450); RBC Distribution Width CV 13.1 % (11.6-14.6); RBC Distribution Width SD 43.3 fl (35.1-43.9); White Blood Count 6.5 K/mm3 (4.4-11.0)
[2020-12-23 07:10] LABS: ALB/GLOB Ratio 0.6 RATIO (0.9-2.4); AST(SGOT) 43 U/L (15-37); Alanine Aminotransfer ALT/SGPT 54 U/L (16-61); Albumin, Serum 2.8 g/dL (3.2-5.0); Alkaline Phosphatase 68 U/L (45-117); Anion Gap 7 (5-15); BUN 46 mg/dL (7-18); BUN/Creat Ratio 28.6 RATIO (10-20); Calcium,Total 9.4 mg/dL (8.5-10.1); Chloride 102 mmol/L (98-107); Creatinine, Serum 1.61 mg/dL (0.70-1.30); EST Glomerular Filtration Rate 46 mL/min (>60); Est Glom Filt Rate - Afr Amer 56 mL/min (>60); Estimated Creatinine Clearance 46.96 ml/min; Globulin 4.4 g/dL (2.2-4.2); Glucose 195 mg/dL (74-106); Potassium 4.6 mmol/L (3.5-5.1); Protein, Total 7.2 g/dL (6.4-8.2); Sodium Level 136 mmol/L (136-145)
[2020-12-23] MEDS: Insulin Lispro 100 UNIT/ML INSULN.PEN 10 UNIT SC ×3 (08:20→17:11)
[2020-12-23] MEDS: Insulin Lispro 100 UNIT/ML INSULN.PEN SC ×4 (08:21→21:29)
[2020-12-23] MEDS: Enoxaparin 40 MG/0.4 ML Syringe SC ×2 (08:22→21:23)
[2020-12-23] MEDS: guaiFENesin 1,200 MG Tablet 1200 MG PO ×2 (08:22→21:24)
[2020-12-23] MEDS: dexAMETHasone 2 MG TABLET 6 MG PO (08:23)
[2020-12-23] MEDS: Acetaminophen 325 MG Tablet 650 MG PO ×2 (08:31→21:47)
--- NOTE | 2020-12-23 08:52 | NURSING ---
cps called and texted for bipap and poss need of xfer. spo2 still 80%. new orders received. and gas charger aware. will place nrb over airvo for now till bipap.
--- NOTE | 2020-12-23 09:08 | NURSING ---
pt 87% with airvo and nrb mask. cps in for bipap and to do abg.
[2020-12-23 09:41] LABS: Allen Test Positive; Base Excess -1 mmol/L (-2 to +2); Bicarbonate 23.1 mmol/L (22-26); Blood Gas Specimen Type ART; FI02 73; O2 Delivery Device Vapotherm; PO2 69 mmHG (75-100); SITE L Radial; SO2 94 % (95-99); Total Carbon Dioxide 24 mmol/L; pCO2 33.3 mmHg (35-45); pH 7.45 (7.35-7.45)
--- NOTE | 2020-12-23 10:07 | PN.CC_ITS ---
Assessment & Plan Assessment/Plan (1) Respiratory failure: QUALIFIERS: Chronicity: acute Respiratory failure complication: hypoxia Qualified Code(s): J96.01 - Acute respiratory failure with hypoxia (2) Pneumonia due to COVID-19 virus: PLAN: RECOMMENDATIONS: 1. Continue to wean FiO2 to maintain oxygen saturations at or above 90%. 2. Remdesivir completed. Continue baricitinib as ordered. 3. Continue Decadron to complete 10 days of therapy. 4. Continue Lovenox twice daily. 5. Continue empiric antimicrobials. 6. Awake prone positioning was encouraged. 7. BiPAP can be utilized if oxygenation status worsens. IMPRESSIONS: 1. Acute hypoxemic respiratory failure secondary to COVID-19 pneumonia Symptom onset was initially around December 12. Over the course of his hospitalization, the patient's oxygenation status has slowly worsened. He is now requiring heated high flow oxygen. The patient has completed a treatment course of remdesivir and remains on Decadron, baricitinib and Lovenox. In addition to the aforementioned, given his clinical worsening, empiric antimicrobials were initiated. Unable to diurese patient given underlying renal insufficiency. 2. Acute on chronic kidney disease Likely prerenal in etiology. Recommend holding diuretics for now. 3. Morbid obesity/diabetes mellitus/chronic kidney disease Complicates care, management, recovery and prognosis. Continue home medications as indicated. This note was generated with [employer] dictation software. It may contain incorrect words, spelling, and punctuation that were not noted in checking the note before signing. Subjective Subjective The patient was seen and examined at the bedside this morning. Events from the last 24 hours have been reviewed. The patient is currently afebrile, hemodynamically stable and maintaining appropriate oxygen saturations on Airvo heated high flow with an FiO2 requirement of 80% and flow rate of 60 L/min. The patient is currently documented to be overall net +1.5 L for the hospitalization. He remains on empiric antimicrobials, Decadron, prophylactic Lovenox and baricitinib. Creatinine remains up at 1.6. Objective Data Objective Data The patient's most recent lab work, culture data and imaging studies have all been personally reviewed. Strep and urine Legionella antigens were negative. Coronavirus PCR was positive on December 19. MRSA screen was negative. Vital Signs: Vital Signs Temp Pulse Resp BP Pulse Ox 97.6 F L 59 L 18 113/73 99 12/23/20 09:40 12/23/20 09:40 12/23/20 09:40 12/23/20 09:40 12/23/20 09:40 Oxygen Flow Rate (L/min) 60 Oxygen Delivery Method Airvo Weight: 126.4 kg Body Mass Index (BMI) 41.1 Intake & Output: Intake and Output for Last 24 Hours 12/21/20 12/22/20 12/23/20 23:59 23:59 23:59 Intake Total 1750 / 2050 1640 / 1640 300 / 300 Output Total 3750 / 3750 300 / 300 Balance 1750 / 1650 -2110 / -2110 0 / 0 Medical Nutrition Assessment Dietitian: Malnutrition Criteria Met Start: 12/19/20 09:54 Freq: Status: Active Protocol: Document 12/19/20 09:54 NICOLE (Rec: 12/19/20 09:54 [facility] [id number]) Nutrition Malnutrition Evidence of Malnutrition Exists Yes Malnutrition (severe): Acute Illness/Injury Evidenced By Suboptimal Energy Intake ( Severe),Weight Loss (Severe) Clinical Problem Acute Disease or Injury Related Malnutrition Etiology related to COVID/resp failure and inability to consume adequate nutrition to meet est nutritional needs Signs/Symptoms related to <50% x 3-4 days 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 Result Diagrams: 12/23/20 05:15 12/23/20 05:15 Labs: Laboratory Results - last 24 hr 12/22/20 08:08: POC Glucose 187 H 12/22/20 11:03: POC Glucose 406 H 12/22/20 16:17: POC Glucose 457 H* 12/22/20 18:14: POC Glucose 398 H 12/22/20 22:09: POC Glucose 374 H 12/23/20 05:15: WBC 6.5, RBC 4.20 L, Hgb 13.1, Hct 37.8 L, MCV 90.0, MCH 31.2, MCHC 34.7, RDW Std Deviation 43.3, RDW Coeff of Luke 13.1, Plt Count 108 L, MPV 11.1, Immature Gran % (Auto) 1.100 H, Neut % (Auto) 79.7 H, Lymph % (Auto) 15.3 L, [place] % (Auto) 3.7, Eos % (Auto) 0.0, Baso % (Auto) 0.2, Absolute Neuts (auto) 5.2, Absolute Lymphs (auto) 0.99, Nucleated RBC % 0 12/23/20 05:15: Sodium 136, Potassium 4.6, Chloride 102, Carbon Dioxide 27.0, Anion Gap 7, BUN 46 H, Creatinine 1.61 H, Estim Creat Clear Calc 46.96, Est GFR (MDRD) Af Amer 56 L, Est GFR (MDRD) Non-Af 46 L, BUN/Creatinine Ratio 28.6 H, Glucose 195 H, Calcium 9.4, Total Bilirubin 0.40, AST 43 H, ALT 54, Alkaline Phosphatase 68, Total Protein 7.2, Albumin 2.8 L, Globulin 4.4 H, Albumin/Globulin Ratio 0.6 L Micro: Microbiology 12/19/20 20:40 Urine, Clean Catch Legionella Antigen - Final 12/19/20 20:40 Urine, Clean Catch Streptococcus pneumoniae Antigen (M - Final ABG Data ABG results: ABG 12/23/20 09:37 Specimen Type ART Sample Site L Radial pH 7.45 Bicarbonate Actual 23.1 Total CO2 24 Base Excess -1 O2 Saturation 94 L O2 % 73 ABG pCO2 33.3 L ABG pO2 69 L Ricco Test Positive O2 Delivery Device Vapotherm Physical Exam Const alert and no apparent distress Constitutional Narrative: Remains on Airvo heated high flow. General Appearance: cooperative Nutritional Appearance: morbidly obese HEENT normocephalic, head/scalp atraumatic and moist oral mucous membranes Eyes PERRL and EOMs intact bilaterally Neck supple General: trachea midline Chest inspection of chest normal Resp Auscultation: diminished lung sounds Cardio regular rate and regular rhythm GI normal to inspection, nondistended, normoactive bowel sounds Extremity no clubbing, cyanosis or edema Skin no rashes or lesions noted Neuro moves all extremities and no focal motor deficits Psych cooperative and affect normal Charges/Coding Visit Charges Inpatient E&M: 99804 Subs Hosp L3
[2020-12-23 12:00] LABS: Bedside Glucose 157 mg/dL (70-110)
[2020-12-23 12:15] LABS: Bedside Glucose 310 mg/dL (70-110)
--- NOTE | 2020-12-23 13:04 | NURSING ---
This RN taking over care at this time
--- NOTE | 2020-12-23 13:23 | PN.HOSP_ITS ---
Subjective Subjective He had some significant shortness of breath this morning which necessitated a nonrebreather over the air Vo. BiPAP was brought into the room but he did eventually recover. Creatinine is elevated 1.61 Objective Data Objective Data Vital Signs: Vital Signs Temp Pulse Resp BP Pulse Ox 97.6 F L 55 L 18 113/73 99 12/23/20 09:40 12/23/20 11:00 12/23/20 09:40 12/23/20 09:40 12/23/20 09:40 Oxygen Flow Rate (L/min) 60 Oxygen Delivery Method Airvo Weight: 278 lb 10.629 oz Body Mass Index (BMI) 41.1 Intake & Output: Intake and Output for Last 24 Hours 12/22/20 12/23/20 12/24/20 03:59 03:59 03:59 Intake Total 1850 / 1850 1340 / 1340 50 / 50 Output Total 400 / 400 3350 / 3350 300 / 300 Balance 1450 / 1450 -2010 / -2010 -250 / -250 Medical Nutrition Assessment Dietitian: Malnutrition Criteria Met Start: 12/19/20 09:54 Freq: Status: Active Protocol: Document 12/19/20 09:54 NICOLE (Rec: 12/19/20 09:54 [facility] [id number]) Nutrition Malnutrition Evidence of Malnutrition Exists Yes Malnutrition (severe): Acute Illness/Injury Evidenced By Suboptimal Energy Intake ( Severe),Weight Loss (Severe) Clinical Problem Acute Disease or Injury Related Malnutrition Etiology related to COVID/resp failure and inability to consume adequate nutrition to meet est nutritional needs Signs/Symptoms related to <50% x 3-4 days and 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 Problem Recommendation Dietitian Recommendations/Changes Will change diet to CHO Control w/ 120 ml glucerna shake w/ meals for nursing convenience Will d/c ONS w/ medpass Lab / Micro Data Result Diagrams: 12/23/20 05:15 12/23/20 05:15 Labs: Laboratory Results - last 24 hr 12/22/20 16:17: POC Glucose 457 H* 12/22/20 18:14: POC Glucose 398 H 12/22/20 22:09: POC Glucose 374 H 12/23/20 05:15: WBC 6.5, RBC 4.20 L, Hgb 13.1, Hct 37.8 L, MCV 90.0, MCH 31.2, MCHC 34.7, RDW Std Deviation 43.3, RDW Coeff of Luke 13.1, Plt Count 108 L, MPV 11.1, Immature Gran % (Auto) 1.100 H, Neut % (Auto) 79.7 H, Lymph % (Auto) 15.3 L, [place] % (Auto) 3.7, Eos % (Auto) 0.0, Baso % (Auto) 0.2, Absolute Neuts (auto) 5.2, Absolute Lymphs (auto) 0.99, Nucleated RBC % 0 12/23/20 05:15: Sodium 136, Potassium 4.6, Chloride 102, Carbon Dioxide 27.0, Anion Gap 7, BUN 46 H, Creatinine 1.61 H, Estim Creat Clear Calc 46.96, Est GFR (MDRD) Af Amer 56 L, Est GFR (MDRD) Non-Af 46 L, BUN/Creatinine Ratio 28.6 H, Glucose 195 H, Calcium 9.4, Total Bilirubin 0.40, AST 43 H, ALT 54, Alkaline Phosphatase 68, Total Protein 7.2, Albumin 2.8 L, Globulin 4.4 H, Albumin/Globulin Ratio 0.6 L 12/23/20 08:18: POC Glucose 157 H 12/23/20 11:58: POC Glucose 310 H Micro: Microbiology 12/19/20 20:40 Urine, Clean Catch Legionella Antigen - Final 12/19/20 20:40 Urine, Clean Catch Streptococcus pneumoniae Antigen (M - Final ABG Data ABG results: ABG 12/23/20 09:37 Specimen Type ART Sample Site L Radial pH 7.45 Bicarbonate Actual 23.1 Total CO2 24 Base Excess -1 O2 Saturation 94 L O2 % 73 ABG pCO2 33.3 L ABG pO2 69 L Ricco Test Positive O2 Delivery Device Vapotherm Physical Exam Const alert, oriented x3 and no apparent distress General Appearance: cooperative HEENT normocephalic and moist oral mucous membranes Eyes PERRL, EOMs intact bilaterally and conjunctivae normal Neck supple and no JVD Resp normal respiratory effort, no retractions and no use of accessory muscles Auscultation: crackles and diminished lung sounds; Negative for rales, rhonchi or wheezes Cardio regular rate, regular rhythm, S1 normal heart sound, S2 normal heart sound and no murmurs GI normal to inspection, nondistended, normoactive bowel sounds, soft to palpation, non-tender and non-distended; Negative for hepatosplenomegaly Extremity no clubbing, cyanosis or edema Skin no rashes or lesions noted Neuro no focal motor deficits and no sensory deficits noted Psych affect normal Appearance: appropriate Assessment & Plan Assessment/Plan (1) Pneumonia due to COVID-19 virus: (2) Respiratory failure: QUALIFIERS: Chronicity: acute Respiratory failure complication: hypoxia Qualified Code(s): J96.01 - Acute respiratory failure with hypoxia PLAN: 1. Acute respiratory failure secondary to COVID-19 pneumonia -Appreciate infectious disease and pulmonology assistance -Continue remdesivir, baricitinib and Decadron -Encourage incentive spirometry -CBC and CMP daily -PT and OT following -CTA was negative for PE -Kidney function symptoms have been secondary to Lasix yesterday, will hold and monitor. He may need to be placed on BiPAP this evening -ABG demonstrated a PCO2 of 33.3 with a PO2 of 69 today. pH was 7.45 3. Diabetes mellitus type II -Continue AC at bedtime blood sugars with sliding scale insulin as ordered -Continue to hold Metformin -Continue with long-acting insulin and will make adjustments as necessary 4. CKD stage IIIb -Stable patient at baseline creatinine -CMP daily DVT: Lovenox Charges/Coding Visit Charges Inpatient E&M: 18874 Subs Hosp L2
--- NOTE | 2020-12-23 15:37 | PCM.PN.ID ---
Physical Exam Narrative Feeling ok, still dyspnea, no fever Const alert General Appearance: cooperative Resp Auscultation: diminished lung sounds Cardio regular rate and regular rhythm GI normal to inspection, nondistended, normoactive bowel sounds Skin no rashes or lesions noted ID ID: Route of nutrition/ use of supplements: [] Nutritional Intake: [] IV Site: [] Land Catheter: [] Assessment & Plan Assessment/Plan (1) Pneumonia due to COVID-19 virus: PLAN: Unvaccinated. Covid started 12/12/20. On airvo. On dex, on baricitinib, completed remdesivir. Isolate until 01/01. Recommended vaccine after discharge. On empiric zosyn since 12/21. Not producing sputum, no fever, normal wbc. Will follow (2) Respiratory failure: QUALIFIERS: Chronicity: acute Respiratory failure complication: hypoxia Qualified Code(s): J96.01 - Acute respiratory failure with hypoxia
[2020-12-23 17:30] LABS: Bedside Glucose 313 mg/dL (70-110)
[2020-12-23 21:35] LABS: Bedside Glucose 327 mg/dL (70-110)
[2020-12-24] VITALS (17 sets, daily range): BP systolic 124–154; BP diastolic 59–90; PULSE 44–67; RESP 18–22; TEMP 36.4–36.8; O2SAT 89–98
[2020-12-24] MEDS: 0.9% Saline Lock 10 ML Syringe IV (06:09)
[2020-12-24 06:49] LABS: Absolute Lymphocyte Count 0.86 X10^3/uL (0.83-4.51); Absolute Neutrophil Count 3.8 X10^3/uL (2.0-7.7); Basophil# 0.01 X10^3/uL; Basophil% 0.2 % (0-1); Hematocrit 36.6 % (40-54); Hemoglobin 12.9 g/dL (13.0-16.5); Lymphocyte # 0.86 X10^3/ul (0.83-4.51); Lymphocyte % 17.3 % (19-41); Mean Corp Hgb Conc 35.2 g/dL (32-36); Mean Corpuscular Hgb 31.6 pg (27.0-32.0); Mean Corpuscular Volume 89.7 fL (80-94); Mean Platelet Vol. 10.9 fl (6.2-12.0); Monocyte# 0.22 X10^3/uL; Monocyte% 4.4 % (0-10); NRBC Flagged by Analyzer 0 % (0-5); Neutrophil % 76.7 % (47-70); Platelet Count 112 K/mm3 (150-450); RBC Distribution Width CV 13.2 % (11.6-14.6); RBC Distribution Width SD 43.8 fl (35.1-43.9); Red Blood Count 4.08 M/mm3 (4.6-6.2)
[2020-12-24 07:20] LABS: ALB/GLOB Ratio 0.6 RATIO (0.9-2.4); AST(SGOT) 32 U/L (15-37); Alanine Aminotransfer ALT/SGPT 48 U/L (16-61); Albumin, Serum 2.6 g/dL (3.2-5.0); Alkaline Phosphatase 58 U/L (45-117); Anion Gap 7 (5-15); BUN 41 mg/dL (7-18); BUN/Creat Ratio 29.1 RATIO (10-20); Calcium,Total 9.3 mg/dL (8.5-10.1); Chloride 102 mmol/L (98-107); Creatinine, Serum 1.41 mg/dL (0.70-1.30); EST Glomerular Filtration Rate 54 mL/min (>60); Est Glom Filt Rate - Afr Amer 65 mL/min (>60); Estimated Creatinine Clearance 53.62 ml/min; Globulin 4.7 g/dL (2.2-4.2); Glucose 178 mg/dL (74-106); Potassium 4.8 mmol/L (3.5-5.1); Protein, Total 7.3 g/dL (6.4-8.2); Sodium Level 135 mmol/L (136-145)
--- NOTE | 2020-12-24 08:05 | CPS ---
CALLED TO ROOM FOR PT'S SATURATION 85% ON AIRVO. FIO2 INCREASED FROM 45% TO 60%. SATURATION REMAINED LOW. FLOW WAS THEN INCREASED TO 55L.SATURATION STILL 86--87%. FIO2 INCREASED TO 70% AND SATURATION 90-91%
[2020-12-24 08:46] LABS: Bedside Glucose 150 mg/dL (70-110)
[2020-12-24] MEDS: Insulin Lispro 100 UNIT/ML INSULN.PEN 10 UNIT SC ×3 (09:13→17:54)
[2020-12-24] MEDS: Insulin Lispro 100 UNIT/ML INSULN.PEN SC ×4 (09:14→21:58)
[2020-12-24] MEDS: guaiFENesin 1,200 MG Tablet 1200 MG PO ×2 (09:17→21:53)
[2020-12-24] MEDS: dexAMETHasone 2 MG TABLET 6 MG PO (09:17)
[2020-12-24] MEDS: Enoxaparin 40 MG/0.4 ML Syringe SC ×2 (09:19→21:53)
--- NOTE | 2020-12-24 09:43 | CPS ---
CALLED TO PT'S ROOM FOR SATURATION OF 83% WHILE SITTING AT BEDSIDE EATING. FLOW ON AIRVO WAS INCREASED TO 60L AND FIO2 TO 82%. PT BACK IN BED LAYING ON LEFT SIDE SATURATION 89-90%.
--- NOTE | 2020-12-24 10:52 | CPS ---
SATURATION ON AIRVO 95% WITH AN FIO2 82%. Attempted to decrease FIO2 on Airvo to 75%. saturation 85-87&. Pt placed back to 82% pt saturation 88--89%
--- NOTE | 2020-12-24 12:15 | PCM.PN.HOSP ---
Subjective Subjective Remains unchanged. Maintaining his oxygen saturations on air Vo Objective Data Objective Data Vital Signs: Vital Signs Temp Pulse Resp BP Pulse Ox 97.6 F L 58 L 18 124/59 H 89 12/24/20 09:00 12/24/20 11:00 12/24/20 10:57 12/24/20 09:00 12/24/20 10:57 Oxygen Flow Rate (L/min) 45 Oxygen Delivery Method Airvo Weight: 278 lb 10.629 oz Body Mass Index (BMI) 41.1 Intake & Output: Intake and Output for Last 24 Hours 12/23/20 12/24/20 12/25/20 03:59 03:59 03:59 Intake Total 1340 / 1340 1230 / 1230 290 / 290 Output Total 3350 / 3350 875 / 875 550 / 550 Balance -2009 / 355 / 355 -260 / -260 Medical Nutrition Assessment Dietitian: Malnutrition Criteria Met Start: 12/19/20 09:54 Freq: Status: Active Protocol: Document 12/19/20 09:54 NICOLE (Rec: 12/19/20 09:54 [facility] [id number]) Nutrition Malnutrition Evidence of Malnutrition Exists Yes Malnutrition (severe): Acute Illness/Injury Evidenced By Suboptimal Energy Intake ( Severe),Weight Loss (Severe) Clinical Problem Acute Disease or Injury Related Malnutrition Etiology related to COVID/resp failure and inability to consume adequate nutrition to meet est nutritional needs Signs/Symptoms related to <50% x 3-4 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 Recommendation Dietitian Recommendations/Changes Will change diet to CHO Control w/ 120 ml glucerna shake w/ meals for nursing convenience Will d/c ONS w/ medpass Lab / Micro Data Result Diagrams: 12/24/20 06:00 12/24/20 06:00 Labs: Laboratory Results - last 24 hr 12/23/20 11:58: POC Glucose 310 H 12/23/20 17:10: POC Glucose 313 H 12/23/20 21:27: POC Glucose 327 H 12/24/20 06:00: WBC 5.0, RBC 4.08 L, Hgb 12.9 L, Hct 36.6 L, MCV 89.7, MCH 31.6, MCHC 35.2, RDW Std Deviation 43.8, RDW Coeff of Luke 13.2, Plt Count 112 L, MPV 10.9, Immature Gran % (Auto) 1.400 H, Neut % (Auto) 76.7 H, Lymph % (Auto) 17.3 L, [place] % (Auto) 4.4, Eos % (Auto) 0.0, Baso % (Auto) 0.2, Absolute Neuts (auto) 3.8, Absolute Lymphs (auto) 0.86, Nucleated RBC % 0 12/24/20 06:00: Sodium 135 L, Potassium 4.8, Chloride 102, Carbon Dioxide 26.0, Anion Gap 7, BUN 41 H, Creatinine 1.41 H, Estim Creat Clear Calc 53.62, Est GFR (MDRD) Af Amer 65, Est GFR (MDRD) Non-Af 54 L, BUN/Creatinine Ratio 29.1 H, Glucose 178 H, Calcium 9.3, Total Bilirubin 0.40, AST 32, ALT 48, Alkaline Phosphatase 58, Total Protein 7.3, Albumin 2.6 L, Globulin 4.7 H, Albumin/Globulin Ratio 0.6 L 12/24/20 08:06: POC Glucose 150 H Micro: Microbiology 12/19/20 20:40 Urine, Clean Catch Legionella Antigen - Final 12/19/20 20:40 Urine, Clean Catch Streptococcus pneumoniae Antigen (M - Final Physical Exam Const alert, oriented x3 and no apparent distress General Appearance: cooperative HEENT normocephalic and moist oral mucous membranes Eyes PERRL, EOMs intact bilaterally and conjunctivae normal Neck supple and no JVD Resp normal respiratory effort, no retractions and no use of accessory muscles Auscultation: crackles and diminished lung sounds; Negative for rales, rhonchi or wheezes Cardio regular rate, regular rhythm, S1 normal heart sound, S2 normal heart sound and no murmurs GI normal to inspection, nondistended, normoactive bowel sounds, soft to palpation, non-tender and non-distended; Negative for hepatosplenomegaly Extremity no clubbing, cyanosis or edema Skin no rashes or lesions noted Neuro no focal motor deficits and no sensory deficits noted Psych affect normal Appearance: appropriate Assessment & Plan Assessment/Plan (1) Pneumonia due to COVID-19 virus: (2) Respiratory failure: QUALIFIERS: Chronicity: acute Respiratory failure complication: hypoxia Qualified Code(s): J. - Acute respiratory failure with hypoxia PLAN: 1. Acute respiratory failure secondary to COVID-19 pneumonia -Appreciate infectious disease and pulmonology assistance -Continue with baricitinib and Decadron, he has completed remdesivir -Encourage incentive spirometry -CBC and CMP daily -PT and OT following -CTA was negative for PE -Continue to monitor kidney function and to continue with Lasix as needed -ABG demonstrated a PCO2 of 33.3 with a PO2 of 69 today. pH was 7.45 3. Diabetes mellitus type II -Continue AC at bedtime blood sugars with sliding scale insulin as ordered -Continue to hold Metformin -Continue with long-acting insulin and will make adjustments as necessary 4. CKD stage IIIb -Stable patient at baseline creatinine -CMP daily DVT: Lovenox Charges/Coding Visit Charges Inpatient E&M: 10301 Subs Hosp L2
[2020-12-24 13:01] LABS: Bedside Glucose 227 mg/dL (70-110)
[2020-12-24 18:05] LABS: Bedside Glucose 237 mg/dL (70-110)
[2020-12-24] MEDS: Acetaminophen 325 MG Tablet 650 MG PO (21:59)
[2020-12-24 22:11] LABS: Bedside Glucose 344 mg/dL (70-110)
[2020-12-25] VITALS (11 sets, daily range): BP systolic 116–129; BP diastolic 64–85; PULSE 44–71; RESP 18–20; TEMP 36.7–37; O2SAT 93–97
[2020-12-25 07:05] LABS: Anion Gap 7 (5-15); BUN 38 mg/dL (7-18); Calcium,Total 8.7 mg/dL (8.5-10.1); Chloride 106 mmol/L (98-107); Creatinine, Serum 1.31 mg/dL (0.70-1.30); EST Glomerular Filtration Rate 59 mL/min (>60); Est Glom Filt Rate - Afr Amer 71 mL/min (>60); Estimated Creatinine Clearance 57.72 ml/min; Glucose 167 mg/dL (74-106); Potassium 4.6 mmol/L (3.5-5.1); Sodium Level 137 mmol/L (136-145)
--- NOTE | 2020-12-25 08:02 | PN.CC_ITS ---
Assessment & Plan Assessment/Plan (1) Respiratory failure: QUALIFIERS: Chronicity: acute Respiratory failure complication: hypoxia Qualified Code(s): J96.01 - Acute respiratory failure with hypoxia (2) Pneumonia due to COVID-19 virus: PLAN: RECOMMENDATIONS: 1. Continue to wean FiO2 to maintain oxygen saturations at or above 90%. 2. Remdesivir completed. Continue baricitinib as ordered. 3. Continue Decadron to complete 10 days of therapy. 4. Continue Lovenox twice daily. 5. Continue empiric antimicrobials to complete 7 days of therapy. 6. Awake prone positioning was encouraged. IMPRESSIONS: 1. Acute hypoxemic respiratory failure secondary to COVID-19 pneumonia Symptom onset was initially around December 12. Over the course of his hospitalization, the patient's oxygenation status has slowly worsened. He is now requiring heated high flow oxygen. The patient has completed a treatment course of remdesivir and remains on Decadron, baricitinib and Lovenox. In addition to the aforementioned, given his clinical worsening, empiric antimicrobials were initiated. Unable to diurese patient given underlying renal insufficiency. Awake prone positioning was encouraged. 2. Acute on chronic kidney disease Likely prerenal in etiology. Recommend holding diuretics for now. 3. Morbid obesity/diabetes mellitus/chronic kidney disease Complicates care, management, recovery and prognosis. Continue home medications as indicated. This note was generated with [employer] dictation software. It may contain incorrect words, spelling, and punctuation that were not noted in checking the note before signing. Subjective Subjective The patient was seen and examined at the bedside this morning. Events from the last 24 hours have been reviewed. The patient is currently afebrile, hemodyn amically stable and maintaining appropriate oxygen saturations on Airvo heated high flow with an FiO2 requirement of 79% and flow rate of 60 L/min. The patient is currently documented to be overall net +1 L for the hospital admission. He remains on empiric antimicrobials, Decadron, prophylactic Lovenox and baricitinib. Creatinine is stable at 1.31. Objective Data Objective Data The patient's most recent lab work, culture data and imaging studies have all been personally reviewed. Strep and urine Legionella antigens were negative. Coronavirus PCR was positive on December 19. MRSA screen was negative. Vital Signs: Vital Signs Temp Pulse Resp BP Pulse Ox 98.5 F 59 L 18 127/72 H 97 10/24/21 03:00 12/25/20 03:37 12/25/20 03:37 12/25/20 03:00 12/25/20 03:37 Oxygen Flow Rate (L/min) 60 Oxygen Delivery Method Airvo Weight: 126.4 kg Body Mass Index (BMI) 41.1 Intake & Output: Intake and Output for Last 24 Hours 12/23/20 12/24/20 12/25/20 23:59 23:59 23:59 Intake Total 1480 / 1480 630 / 630 50 / 50 Output Total 875 / 875 1250 / 1250 600 / 600 Balance 605 / 605 -620 / -620 -550 / -550 Medical Nutrition Assessment Dietitian: Malnutrition Criteria Met Start: 12/19/20 09:54 Freq: Status: Active Protocol: Document 12/19/20 09:54 NICOLE (Rec: 12/19/20 09:54 [facility] [id number]) Nutrition Malnutrition Evidence of Malnutrition Exists Yes Malnutrition (severe): Acute Illness/Injury Evidenced By Suboptimal Energy Intake ( Severe),Weight Loss (Severe) Clinical Problem Acute Disease or Injury Related Malnutrition Etiology related to COVID/resp failure and inability to consume adequate nutrition to meet est nutritional needs Signs/Symptoms related to <50% x 3-4 days and 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 Result Diagrams: 12/24/20 06:00 12/25/20 06:20 Labs: Laboratory Results - last 24 hr 12/24/20 08:06: POC Glucose 150 H 12/24/20 12:40: POC Glucose 227 H 12/24/20 17:53: POC Glucose 237 H 12/24/20 21:57: POC Glucose 344 H 12/25/20 06:20: Sodium 137, Potassium 4.6, Chloride 106, Carbon Dioxide 24.0, Anion Gap 7, BUN 38 H, Creatinine 1.31 H, Estim Creat Clear Calc 57.72, Est GFR (MDRD) Af Amer 71, Est GFR (MDRD) Non-Af 59 L, BUN/Creatinine Ratio 29.0 H, Glucose 167 H, Calcium 8.7 Micro: Microbiology 12/19/20 20:40 Urine, Clean Catch Legionella Antigen - Final 12/19/20 20:40 Urine, Clean Catch Streptococcus pneumoniae Antigen (M - Final Physical Exam Const alert and no apparent distress Constitutional Narrative: Remains on Airvo heated high flow. General Appearance: cooperative Nutritional Appearance: morbidly obese HEENT normocephalic, head/scalp atraumatic and moist oral mucous membranes Eyes PERRL and EOMs intact bilaterally Neck supple General: trachea midline Chest inspection of chest normal Resp Auscultation: diminished lung sounds Cardio regular rate and regular rhythm GI normal to inspection, nondistended, normoactive bowel sounds Extremity no clubbing, cyanosis or edema Skin no rashes or lesions noted Neuro moves all extremities and no focal motor deficits Psych cooperative and affect normal Charges/Coding Visit Charges Inpatient E&M: 22397 Subs Hosp L2
[2020-12-25] MEDS: Enoxaparin 40 MG/0.4 ML Syringe SC ×2 (08:21→22:46)
[2020-12-25] MEDS: Insulin Lispro 100 UNIT/ML INSULN.PEN 10 UNIT SC ×3 (08:22→16:22)
[2020-12-25] MEDS: dexAMETHasone 2 MG TABLET 6 MG PO (08:22)
[2020-12-25] MEDS: guaiFENesin 1,200 MG Tablet 1200 MG PO ×2 (08:23→22:46)
[2020-12-25 08:31] LABS: Bedside Glucose 140 mg/dL (70-110)
[2020-12-25] MEDS: Insulin Lispro 100 UNIT/ML INSULN.PEN SC ×3 (11:27→22:45)
--- NOTE | 2020-12-25 12:53 | PCM.PN.HOSP ---
Subjective Subjective Remains unchanged. Still on air Vo. Continue to encourage pulmonary toileting and ambulation. Objective Data Objective Data Vital Signs: Vital Signs Temp Pulse Resp BP Pulse Ox 98.5 F 66 18 129/64 H 94 12/25/20 08:19 12/25/20 08:19 12/25/20 08:19 12/25/20 08:19 12/25/20 08:19 Oxygen Flow Rate (L/min) 60 Oxygen Delivery Method Airvo Weight: 278 lb 10.629 oz Body Mass Index (BMI) 41.1 Intake & Output: Intake and Output for Last 24 Hours 12/24/20 12/25/20 12/26/20 03:59 03:59 03:59 Intake Total 1230 / 1230 630 / 630 450 / 450 Output Total 875 / 875 1250 / 1250 600 / 600 Balance 355 / 355 -620 / -620 -150 / -150 Medical Nutrition Assessment Dietitian: Malnutrition Criteria Met Start: 12/19/20 09:54 Freq: Status: Active Protocol: Document 12/19/20 09:54 NICOLE (Rec: 12/19/20 09:54 [facility] [id number]) Nutrition Malnutrition Evidence of Malnutrition Exists Yes Malnutrition (severe): Acute Illness/Injury Evidenced By Suboptimal Energy Intake ( Severe),Weight Loss (Severe) Clinical Problem Acute Disease or Injury Related Malnutrition Etiology related to COVID/resp failure and inability to consume adequate nutrition to meet est nutritional needs Signs/Symptoms related to <50% x 3-4 days and wt loss of 2.3% x 1 wk [employer]. Status Active Problem Recommendation Dietitian Recommendations/Changes Will change diet to CHO Control w/ 120 ml glucerna shake w/ meals for nursing convenience Will d/c ONS w/ medpass Lab / Micro Data Result Diagrams: 12/24/20 06:00 12/25/20 06:20 Labs: Laboratory Results - last 24 hr 12/24/20 12:40: POC Glucose 227 H 12/24/20 17:53: POC Glucose 237 H 12/24/20 21:57: POC Glucose 344 H 12/25/20 06:20: Sodium 137, Potassium 4.6, Chloride 106, Carbon Dioxide 24.0, Anion Gap 7, BUN 38 H, Creatinine 1.31 H, Estim Creat Clear Calc 57.72, Est GFR (MDRD) Af Amer 71, Est GFR (MDRD) Non-Af 59 L, BUN/Creatinine Ratio 29.0 H, Glucose 167 H, Calcium 8.7 12/25/20 08:14: POC Glucose 140 H Micro: Microbiology 12/19/20 20:40 Urine, Clean Catch Legionella Antigen - Final 12/19/20 20:40 Urine, Clean Catch Streptococcus pneumoniae Antigen (M - Final Physical Exam Const alert, oriented x3 and no apparent distress General Appearance: cooperative HEENT normocephalic and moist oral mucous membranes Eyes PERRL, EOMs intact bilaterally and conjunctivae normal Neck supple and no JVD Resp normal respiratory effort, no retractions and no use of accessory muscles Auscultation: diminished lung sounds; Negative for crackles, rales, rhonchi or wheezes Cardio regular rate, regular rhythm, S1 normal heart sound, S2 normal heart sound and no murmurs GI normal to inspection, nondistended, normoactive bowel sounds, soft to palpation, non-tender and non-distended; Negative for hepatosplenomegaly Extremity no clubbing, cyanosis or edema Skin no rashes or lesions noted Neuro no focal motor deficits and no sensory deficits noted Psych affect normal Appearance: appropriate Assessment & Plan Assessment/Plan (1) Pneumonia due to COVID-19 virus: (2) Respiratory failure: QUALIFIERS: Chronicity: acute Respiratory failure complication: hypoxia Qualified Code(s): J96.01 - Acute respiratory failure with hypoxia PLAN: 1. Acute respiratory failure secondary to COVID-19 pneumonia -Appreciate infectious disease and pulmonology assistance -Continue with baricitinib and Decadron, he has completed remdesivir -Encourage incentive spirometry and ambulation. He is lying on his side, states he is unable to prone -CBC and CMP daily -PT and OT following -CTA was negative for PE -Continue to monitor kidney function and to continue with Lasix as needed -ABG demonstrated a PCO2 of 33.3 with a PO2 of 69 today. pH was 7.45 3. Diabetes mellitus type II -Continue AC at bedtime blood sugars with sliding scale insulin as ordered -Continue to hold Metformin -Continue with long-acting insulin and will make adjustments as necessary 4. CKD stage IIIb -Stable patient at baseline creatinine -CMP daily DVT: Lovenox Charges/Coding Visit Charges Inpatient E&M: 84225 Subs Hosp L2
[2020-12-25 13:26] LABS: Bedside Glucose 292 mg/dL (70-110)
[2020-12-25 16:51] LABS: Bedside Glucose 339 mg/dL (70-110)
[2020-12-25] MEDS: Pantoprazole Sodium 40 MG Tablet PO (18:22)
[2020-12-25] MEDS: Acetaminophen 325 MG Tablet 650 MG PO (18:25)
[2020-12-25 23:00] LABS: Bedside Glucose 340 mg/dL (70-110)
[2020-12-26] VITALS (13 sets, daily range): BP systolic 113–141; BP diastolic 56–75; PULSE 45–64; RESP 18; TEMP 36.4–37.1; O2SAT 90–99
[2020-12-26 07:35] LABS: Absolute Lymphocyte Count 0.71 X10^3/uL (0.83-4.51); Absolute Neutrophil Count 3.1 X10^3/uL (2.0-7.7); Basophil# 0.01 X10^3/uL; Basophil% 0.2 % (0-1); Eosinophil# 0.01 X10^3/uL; Eosinophils% 0.2 % (0-5); Hematocrit 36.8 % (40-54); Hemoglobin 12.7 g/dL (13.0-16.5); Lymphocyte # 0.71 X10^3/ul (0.83-4.51); Lymphocyte % 17.1 % (19-41); Mean Corp Hgb Conc 34.5 g/dL (32-36); Mean Corpuscular Hgb 31.1 pg (27.0-32.0); Mean Platelet Vol. 10.9 fl (6.2-12.0); Monocyte# 0.28 X10^3/uL; Monocyte% 6.7 % (0-10); NRBC Flagged by Analyzer 0 % (0-5); Neutrophil # 3.07 X10^3/uL (2.7-7.7); Neutrophil % 73.9 % (47-70); Platelet Count 111 K/mm3 (150-450); RBC Distribution Width CV 13.3 % (11.6-14.6); RBC Distribution Width SD 43.8 fl (35.1-43.9); Red Blood Count 4.09 M/mm3 (4.6-6.2); White Blood Count 4.2 K/mm3 (4.4-11.0)
[2020-12-26 08:14] LABS: ALB/GLOB Ratio 0.5 RATIO (0.9-2.4); AST(SGOT) 30 U/L (15-37); Alanine Aminotransfer ALT/SGPT 51 U/L (16-61); Albumin, Serum 2.4 g/dL (3.2-5.0); Alkaline Phosphatase 53 U/L (45-117); Anion Gap 7 (5-15); BUN 41 mg/dL (7-18); BUN/Creat Ratio 28.1 RATIO (10-20); Calcium,Total 8.9 mg/dL (8.5-10.1); Chloride 104 mmol/L (98-107); Creatinine, Serum 1.46 mg/dL (0.70-1.30); EST Glomerular Filtration Rate 52 mL/min (>60); Est Glom Filt Rate - Afr Amer 63 mL/min (>60); Estimated Creatinine Clearance 51.79 ml/min; Globulin 4.5 g/dL (2.2-4.2); Glucose 149 mg/dL (74-106); Potassium 4.8 mmol/L (3.5-5.1); Protein, Total 6.9 g/dL (6.4-8.2); Sodium Level 138 mmol/L (136-145)
[2020-12-26] MEDS: Insulin Lispro 100 UNIT/ML INSULN.PEN 10 UNIT SC ×3 (09:31→17:17)
[2020-12-26] MEDS: guaiFENesin 1,200 MG Tablet 1200 MG PO ×2 (09:33→21:17)
[2020-12-26] MEDS: Enoxaparin 40 MG/0.4 ML Syringe SC ×2 (09:33→21:16)
[2020-12-26] MEDS: Insulin Lispro 100 UNIT/ML INSULN.PEN SC ×3 (12:24→21:18)
[2020-12-26] MEDS: Acetaminophen 325 MG Tablet 650 MG PO ×2 (12:32→21:17)
[2020-12-26 12:36] LABS: Bedside Glucose 271 mg/dL (70-110)
--- NOTE | 2020-12-26 13:03 | PN.CC_ITS ---
Assessment & Plan Assessment/Plan (1) Respiratory failure: QUALIFIERS: Chronicity: acute Respiratory failure complication: hypoxia Qualified Code(s): J96.01 - Acute respiratory failure with hypoxia (2) Pneumonia due to COVID-19 virus: PLAN: RECOMMENDATIONS: 1. Continue to wean FiO2 to maintain oxygen saturations at or above 90%. 2. Remdesivir completed. Continue baricitinib as ordered (01/03/21). 3. Continue Decadron to complete 10 days of therapy (12/29/20). 4. Continue Lovenox twice daily. 5. Continue empiric antimicrobials to complete 7 days of therapy. 6. Awake prone positioning was encouraged. 7. Add nasal saline IMPRESSIONS: 1. Acute hypoxemic respiratory failure secondary to COVID-19 pneumonia Symptom onset was initially around December 12. Over the course of his hospitalization, the patient's oxygenation status has slowly worsened. He is now requiring heated high flow oxygen. The patient has completed a treatment course of remdesivir and remains on Decadron, baricitinib and Lovenox. Patient appears to be stabilizing from a respiratory standpoint. We will continue to wean Airvo as tolerated. Patient will be given nasal saline to help with nasal secretions. No epistaxis has been reported. H&H remained stable. 2. Acute on chronic kidney disease Likely prerenal in etiology. Recommend holding diuretics for now. Possibly challenge with Lasix if renal function improves 3. Morbid obesity/diabetes mellitus/chronic kidney disease Complicates care, management, recovery and prognosis. Continue home medications as indicated. This note was generated with [employer] dictation software. It may contain incorrect words, spelling, and punctuation that were not noted in checking the note before signing. Subjective Subjective Patient did okay overnight. Patient has had some issues with sinus congestion, but is not reporting epistaxis. Patient overall feels subjectively slightly improved compared to yesterday, but is still having significant dyspnea on exertion. Patient is tolerating Airvo during the day. Objective Data Objective Data Vital Signs: Vital Signs Temp Pulse Resp BP Pulse Ox 36.7 C 64 18 121/62 H 92 12/26/20 09:37 12/26/20 09:37 12/26/20 09:37 12/26/20 09:37 12/26/20 11:15 Oxygen Flow Rate (L/min) 60 Oxygen Delivery Method Airvo Weight: 126.4 kg Body Mass Index (BMI) 41.1 Intake & Output: Intake and Output for Last 24 Hours 12/24/20 12/25/20 12/26/20 23:59 23:59 23:59 Intake Total 630 / 630 950 / 950 100 / 100 Output Total 1250 / 1250 1000 / 1450 1000 / 1000 Balance -620 / -620 -50 / -500 -900 / -900 Medical Nutrition Assessment Dietitian: Malnutrition Criteria Met Start: 12/19/20 09: 54 Freq: Status: Active Protocol: Document 12/19/20 09:54 [facility] (Rec: 12/19/20 09:54 SLA [id number]) Nutrition Malnutrition Evidence of Malnutrition Exists Yes Malnutrition (severe): Acute Illness/Injury Evidenced By Suboptimal Energy Intake ( Severe),Weight Loss (Severe) Clinical Problem Acute Disease or Injury Related Malnutrition Etiology related to COVID/resp failure and inability to consume adequate nutrition to meet est nutritional needs Signs/Symptoms related to <50% x 3-4 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 Problem Recommendation Dietitian Recommendations/Changes Will change diet to CHO Control w/ 120 ml glucerna shake w/ meals for nursing convenience Will d/c ONS w/ medpass Lab / Micro Data Result Diagrams: 12/26/20 07:11 12/26/20 07:11 Labs: Laboratory Results - last 24 hr 12/25/20 11:25: POC Glucose 292 H 12/25/20 16:21: POC Glucose 339 H 12/25/20 22:41: POC Glucose 340 H 12/26/20 07:11: WBC 4.2 L, RBC 4.09 L, Hgb 12.7 L, Hct 36.8 L, MCV 90.0, MCH 31.1, MCHC 34.5, RDW Std Deviation 43.8, RDW Coeff of Luke 13.3, Plt Count 111 L, MPV 10.9, Immature Gran % (Auto) 1.900 H, Neut % (Auto) 73.9 H, Lymph % (Auto) 17.1 L, [place] % (Auto) 6.7, Eos % (Auto) 0.2, Baso % (Auto) 0.2, Absolute Neuts (auto) 3.1, Absolute Lymphs (auto) 0.71 L, Nucleated RBC % 0 12/26/20 07:11: Sodium 138, Potassium 4.8, Chloride 104, Carbon Dioxide 27.0, Anion Gap 7, BUN 41 H, Creatinine 1.46 H, Estim Creat Clear Calc 51.79, Est GFR (MDRD) Af Amer 63, Est GFR (MDRD) Non-Af 52 L, BUN/Creatinine Ratio 28.1 H, Glucose 149 H, Calcium 8.9, Total Bilirubin 0.40, AST 30, ALT 51, Alkaline Phosphatase 53, Total Protein 6.9, Albumin 2.4 L, Globulin 4.5 H, Albumin/Globulin Ratio 0.5 L 12/26/20 12:23: POC Glucose 271 H Micro: Microbiology 12/19/20 20:40 Urine, Clean Catch Legionella Antigen - Final 12/19/20 20:40 Urine, Clean Catch Streptococcus pneumoniae Antigen (M - Final Physical Exam Const alert and no apparent distress Constitutional Narrative: Remains on Airvo heated high flow. General Appearance: cooperative Nutritional Appearance: morbidly obese HEENT normocephalic, head/scalp atraumatic and moist oral mucous membranes Eyes PERRL and EOMs intact bilaterally Neck supple General: trachea midline Chest inspection of chest normal Resp Auscultation: diminished lung sounds Cardio regular rate and regular rhythm GI normal to inspection, nondistended, normoactive bowel sounds Extremity no clubbing, cyanosis or edema Skin no rashes or lesions noted Neuro moves all extremities and no focal motor deficits Psych cooperative and affect normal Charges/Coding Visit Charges Inpatient E&M: 10403 Subs Hosp L2
[2020-12-26] MEDS: dexAMETHasone 2 MG TABLET 6 MG PO (13:15)
--- NOTE | 2020-12-26 14:11 | PCM.PN.HOSP ---
Subjective Subjective No new issues overnight, doing okay. Still on air Vo. No issues overnight, doing well. Still on air Vo Objective Data Objective Data Vital Signs: Vital Signs Temp Pulse Resp BP Pulse Ox 98.1 F 64 18 121/62 H 92 12/26/20 09:37 12/26/20 09:37 12/26/20 09:37 12/26/20 09:37 12/26/20 11:15 Oxygen Flow Rate (L/min) 60 Oxygen Delivery Method Airvo Weight: 278 lb 10.629 oz Body Mass Index (BMI) 41.1 Intake & Output: Intake and Output for Last 24 Hours 12/25/20 12/26/20 12/27/20 03:59 03:59 03:59 Intake Total 630 / 630 950 / 950 50 / 50 Output Total 1250 / 1250 1450 / 1450 950 / 950 Balance -620 / -620 -500 / -500 -900 / -900 Medical Nutrition Assessment Dietitian: Malnutrition Criteria Met Start: 12/19/20 09:54 Freq: Status: Active Protocol: Document 12/19/20 09:54 [facility] (Rec: 12/19/20 09:54 [facility] [id number]) Nutrition Malnutrition Evidence of Malnutrition Exists Yes Malnutrition (severe): Acute Illness/Injury Evidenced By Suboptimal Energy Intake ( Severe),Weight Loss (Severe) Clinical Problem Acute Disease or Injury Related Malnutrition Etiology related to COVID/resp failure and inability to consume adequate nutrition to meet est nutritional needs Signs/Symptoms related to <50% x 3-4 days and 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 Problem Recommendation Dietitian Recommendations/Changes Will change diet to CHO Control w/ 120 ml glucerna shake w/ meals for nursing convenience Will d/c ONS w/ medpass Lab / Micro Data Result Diagrams: 12/27/20 07:04 12/27/20 07:04 Labs: Laboratory Results - last 24 hr 12/25/20 16:21: POC Glucose 339 H 12/25/20 22:41: POC Glucose 340 H 12/26/20 07:11: WBC 4.2 L, RBC 4.09 L, Hgb 12.7 L, Hct 36.8 L, MCV 90.0, MCH 31.1, MCHC 34.5, RDW Std Deviation 43.8, RDW Coeff of [place] 13.3, Plt Count 111 L, MPV 10.9, Immature Gran % (Auto) 1.900 H, Neut % (Auto) 73.9 H, Lymph % (Auto) 17.1 L, [place] % (Auto) 6.7, Eos % (Auto) 0.2, Baso % (Auto) 0.2, Absolute Neuts (auto) 3.1, Absolute Lymphs (auto) 0.71 L, Nucleated RBC % 0 12/26/20 07:11: Sodium 138, Potassium 4.8, Chloride 104, Carbon Dioxide 27.0, Anion Gap 7, BUN 41 H, Creatinine 1.46 H, Estim Creat Clear Calc 51.79, Est GFR (MDRD) Af Amer 63, Est GFR (MDRD) Non-Af 52 L, BUN/Creatinine Ratio 28.1 H, Glucose 149 H, Calcium 8.9, Total Bilirubin 0.40, AST 30, ALT 51, Alkaline Phosphatase 53, Total Protein 6.9, Albumin 2.4 L, Globulin 4.5 H, Albumin/Globulin Ratio 0.5 L 12/26/20 12:23: POC Glucose 271 H Micro: Microbiology 12/19/20 20:40 Urine, Clean Catch Legionella Antigen - Final 12/19/20 20:40 Urine, Clean Catch Streptococcus pneumoniae Antigen (M - Final Physical Exam Const alert, oriented x3 and no apparent distress General Appearance: cooperative HEENT normocephalic and moist oral mucous membranes Eyes PERRL, EOMs intact bilaterally and conjunctivae normal Neck supple and no JVD Resp normal respiratory effort, no retractions and no use of accessory muscles Auscultation: diminished lung sounds; Negative for crackles, rales, rhonchi or wheezes Cardio regular rate, regular rhythm, S1 normal heart sound, S2 normal heart sound and no murmurs GI normal to inspection, nondistended, normoactive bowel sounds, soft to palpation, non-tender and non-distended; Negative for hepatosplenomegaly Extremity no clubbing, cyanosis or edema Skin no rashes or lesions noted Neuro no focal motor deficits and no sensory deficits noted Psych affect normal Appearance: appropriate Assessment & Plan Assessment/Plan (1) Pneumonia due to COVID-19 virus: (2) Respiratory failure: QUALIFIERS: Chronicity: acute Respiratory failure complication: hypoxia Qualified Code(s): J96.01 - Acute respiratory failure with hypoxia PLAN: 1. Acute respiratory failure secondary to COVID-19 pneumonia -Appreciate infectious disease and pulmonology assistance -Continue with baricitinib and Decadron, he has completed remdesivir -Encourage incentive spirometry and ambulation. He is lying on his side, states he is unable to prone -CBC and CMP daily -PT and OT following -CTA was negative for PE -Continue to monitor kidney function and to continue with Lasix as needed 3. Diabetes mellitus type II -Continue AC at bedtime blood sugars with sliding scale insulin as ordered -Continue to hold Metformin -Continue with long-acting insulin and will make adjustments as necessary 4. CKD stage IIIb -Stable patient at baseline creatinine -CMP daily DVT: Lovenox Charges/Coding Visit Charges Inpatient E&M: 95294 Subs Hosp L2
[2020-12-26] MEDS: Sodium Chloride 0.65% 1 SPRAY SPRAY.BTL 2 SPRAY NASAL (17:16)
[2020-12-26 17:25] LABS: Bedside Glucose 382 mg/dL (70-110)
[2020-12-26 22:26] LABS: Bedside Glucose 440 mg/dL (70-110)
[2020-12-27] VITALS (15 sets, daily range): BP systolic 115–135; BP diastolic 38–99; PULSE 48–65; RESP 16–18; TEMP 36.4–37.1; O2SAT 90–97
[2020-12-27 07:25] LABS: Absolute Lymphocyte Count 0.65 X10^3/uL (0.83-4.51); Absolute Neutrophil Count 3.5 X10^3/uL (2.0-7.7); Hemoglobin 12.9 g/dL (13.0-16.5); Lymphocyte # 0.65 X10^3/ul (0.83-4.51); Lymphocyte % 14.5 % (19-41); Mean Corp Hgb Conc 33.9 g/dL (32-36); Mean Corpuscular Hgb 30.9 pg (27.0-32.0); Mean Corpuscular Volume 91.1 fL (80-94); Mean Platelet Vol. 10.7 fl (6.2-12.0); Monocyte# 0.24 X10^3/uL; Monocyte% 5.4 % (0-10); NRBC Flagged by Analyzer 0 % (0-5); Neutrophil # 3.51 X10^3/uL (2.7-7.7); Neutrophil % 78.3 % (47-70); Platelet Count 109 K/mm3 (150-450); RBC Distribution Width CV 13.2 % (11.6-14.6); RBC Distribution Width SD 44.6 fl (35.1-43.9); Red Blood Count 4.17 M/mm3 (4.6-6.2); White Blood Count 4.5 K/mm3 (4.4-11.0)
[2020-12-27 08:15] LABS: ALB/GLOB Ratio 0.5 RATIO (0.9-2.4); AST(SGOT) 32 U/L (15-37); Alanine Aminotransfer ALT/SGPT 58 U/L (16-61); Albumin, Serum 2.5 g/dL (3.2-5.0); Alkaline Phosphatase 54 U/L (45-117); Anion Gap 9 (5-15); BUN 41 mg/dL (7-18); BUN/Creat Ratio 29.9 RATIO (10-20); Calcium,Total 9.2 mg/dL (8.5-10.1); Chloride 104 mmol/L (98-107); Creatinine, Serum 1.37 mg/dL (0.70-1.30); EST Glomerular Filtration Rate 56 mL/min (>60); Est Glom Filt Rate - Afr Amer 67 mL/min (>60); Estimated Creatinine Clearance 55.19 ml/min; Globulin 4.7 g/dL (2.2-4.2); Glucose 176 mg/dL (74-106); Protein, Total 7.2 g/dL (6.4-8.2); Sodium Level 138 mmol/L (136-145)
--- NOTE | 2020-12-27 10:13 | PCM.PN.INT ---
Assessment & Plan Assessment/Plan (1) Respiratory failure: QUALIFIERS: Chronicity: acute Respiratory failure complication: hypoxia Qualified Code(s): J96.01 - Acute respiratory failure with hypoxia (2) Pneumonia due to COVID-19 virus: PLAN: RECOMMENDATIONS: 1. Continue to wean FiO2 to maintain oxygen saturations at or above 90%. 2. Remdesivir completed. Continue baricitinib as ordered (01/03/21). 3. Continue Decadron to complete 10 days of therapy (12/29/20). 4. Continue Lovenox twice daily. 5. Continue empiric antimicrobials to complete 7 days of therapy. 6. Awake prone positioning was encouraged. 7. Likely start daily walking oximetry tomorrow IMPRESSIONS: 1. Acute hypoxemic respiratory failure secondary to COVID-19 pneumonia Symptom onset was initially around December 12. Over the course of his hospitalization, the patient's oxygenation status has slowly worsened. He is now requiring heated high flow oxygen. The patient has completed a treatment course of remdesivir and remains on Decadron, baricitinib and Lovenox. Patient appears to be stabilizing from a respiratory standpoint. Patient appears to have responded well to nasal saline. Patient currently on nasal cannula oxygen and tolerating well. If continues to improve, anticipate walking oximetry tomorrow to see if patient could tolerate discharge. If patient can tolerate ambulation on 6 L or less, anticipate discharge with follow-up in our office in 4 to 6 weeks. 2. Acute on chronic kidney disease Likely prerenal in etiology. Recommend holding diuretics for now. Possibly challenge with Lasix if renal function improves 3. Morbid obesity/diabetes mellitus/chronic kidney disease Complicates care, management, recovery and prognosis. Continue home medications as indicated. This note was generated with [employer] dictation software. It may contain incorrect words, spelling, and punctuation that were not noted in checking the note before signing. Subjective Subjective Patient did well overnight. No acute issues were reported. Patient subjectively feels slightly improved compared to yesterday. Patient was transitioned to nasal cannula oxygen and has been tolerating this. Patient still reporting significant dyspnea on exertion. No chest pain is been reported. Objective Data Objective Data Vital Signs: Vital Signs Temp Pulse Resp BP Pulse Ox 37.1 C 56 L 16 134/59 H 96 12/27/20 03:52 12/27/20 07:08 12/27/20 03:52 12/27/20 03:52 12/27/20 03:52 Oxygen Flow Rate (L/min) 10 Oxygen Delivery Method Nasal Cannula Weight: 126.4 kg Body Mass Index (BMI) 41.1 Intake & Output: Intake and Output for Last 24 Hours 12/25/20 12/26/20 12/27/20 23:59 23:59 23:59 Intake Total 950 / 950 550 / 550 290 / 290 Output Total 1000 / 1450 2500 / 2500 400 / 400 Balance -50 / -500 -1950 / -1950 -110 / -110 Medical Nutrition Assessment Dietitian: Malnutrition Criteria Met Start: 12/19/20 09:54 Freq: Status: Active Protocol: Document 12/19/20 09:54 NICOLE (Rec: 12/19/20 09:54 SLA [id number]) Nutrition Malnutrition Evidence of Malnutrition Exists Yes Malnutrition (severe): Acute Illness/Injury Evidenced By Suboptimal Energy Intake ( Severe),Weight Loss (Severe) Clinical Problem Acute Disease or Injury Related Malnutrition Etiology related to COVID/resp failure and inability to consume adequate nutrition to meet est nutritional needs Signs/Symptoms related to <50% x 3-4 days 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 Problem Recommendation Dietitian Recommendations/Changes Will change diet to CHO Control w/ 120 ml glucerna shake w/ meals for nursing convenience Will d/c ONS w/ medpass Lab / Micro Data Result Diagrams: 12/27/20 07:04 12/27/20 07:04 Labs: Laboratory Results - last 24 hr 12/26/20 12:23: POC Glucose 271 H 12/26/20 17:15: POC Glucose 382 H 12/26/20 21:13: POC Glucose 440 H 12/27/20 07:04: WBC 4.5, RBC 4.17 L, Hgb 12.9 L, Hct 38.0 L, MCV 91.1, MCH 30.9, MCHC 33.9, RDW Std Deviation 44.6 H, RDW Coeff of Luke 13.2, Plt Count 109 L, MPV 10.7, Immature Gran % (Auto) 1.800 H, Neut % (Auto) 78.3 H, Lymph % (Auto) 14.5 L, [place] % (Auto) 5.4, Eos % (Auto) 0.0, Baso % (Auto) 0.0, Absolute Neuts (auto) 3.5, Absolute Lymphs (auto) 0.65 L, Nucleated RBC % 0 12/27/20 07:04: Sodium 138, Potassium 5.0, Chloride 104, Carbon Dioxide 25.0, Anion Gap 9, BUN 41 H, Creatinine 1.37 H, Estim Creat Clear Calc 55.19, Est GFR (MDRD) Af Amer 67, Est GFR (MDRD) Non-Af 56 L, BUN/Creatinine Ratio 29.9 H, Glucose 176 H, Calcium 9.2, Total Bilirubin 0.50, AST 32, ALT 58, Alkaline Phosphatase 54, Total Protein 7.2, Albumin 2.5 L, Globulin 4.7 H, Albumin/Globulin Ratio 0.5 L Micro: Microbiology 12/19/20 20:40 Urine, Clean Catch Legionella Antigen - Final 12/19/20 20:40 Urine, Clean Catch Streptococcus pneumoniae Antigen (M - Final Physical Exam Const alert and no apparent distress Constitutional Narrative: On nasal cannula oxygen General Appearance: cooperative Nutritional Appearance: morbidly obese HEENT normocephalic, head/scalp atraumatic and moist oral mucous membranes Eyes PERRL and EOMs intact bilaterally Neck supple General: trachea midline Chest inspection of chest normal Resp Auscultation: diminished lung sounds Cardio regular rate and regular rhythm GI normal to inspection, nondistended, normoactive bowel sounds Extremity no clubbing, cyanosis or edema Skin no rashes or lesions noted Neuro moves all extremities and no focal motor deficits Psych cooperative and affect normal Charges/Coding Visit Charges Inpatient E&M: 48159 Subs Hosp L2
[2020-12-27] MEDS: Enoxaparin 40 MG/0.4 ML Syringe SC ×2 (11:03→22:05)
[2020-12-27] MEDS: guaiFENesin 1,200 MG Tablet 1200 MG PO ×2 (11:04→22:05)
[2020-12-27] MEDS: Insulin Lispro 100 UNIT/ML INSULN.PEN 10 UNIT SC ×2 (11:04→16:26)
[2020-12-27] MEDS: dexAMETHasone 2 MG TABLET 6 MG PO (11:04)
[2020-12-27] MEDS: Insulin Lispro 100 UNIT/ML INSULN.PEN SC ×3 (11:05→22:09)
[2020-12-27] MEDS: Acetaminophen 325 MG Tablet 650 MG PO (11:23)
[2020-12-27 11:31] LABS: Bedside Glucose 373 mg/dL (70-110)
[2020-12-27 16:46] LABS: Bedside Glucose 278 mg/dL (70-110)
--- NOTE | 2020-12-27 18:21 | PCM.PN.HOSP ---
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 No issues overnight. Objective Data Objective Data Vital Signs: Vital Signs Temp Pulse Resp BP Pulse Ox 97.6 F L 58 L 18 127/73 H 97 12/27/20 15:00 12/27/20 15:00 12/27/20 15:00 12/27/20 15:00 12/27/20 15:00 Oxygen Flow Rate (L/min) 14 Oxygen Delivery Method Nasal Cannula Weight: 278 lb 10.629 oz Body Mass Index (BMI) 41.1 Intake & Output: Intake and Output for Last 24 Hours 12/26/20 12/27/20 12/28/20 03:59 03:59 03:59 Intake Total 950 / 950 550 / 550 290 / 290 Output Total 1450 / 1450 2049 / 2049 400 / 400 Balance -500 / -500 -1500 / -1500 -110 / -110 Medical Nutrition Assessment Dietitian: Malnutrition Criteria Met Start: 12/19/20 09:54 Freq: Status: Active Protocol: Document 12/27/20 14:49 RMA (Rec: 12/27/20 14:49 RMA [id number]) Nutrition Malnutrition Evidence of Malnutrition Exists Yes Malnutrition (severe): Acute Illness/Injury Evidenced By Suboptimal Energy Intake ( Severe),Weight Loss (Severe) Clinical Problem Acute Disease or Injury Related Malnutrition Etiology severe, acute malnutrition related to decreased energy intake d/t acute COVID-19 illness Signs/Symptoms as evidenced by PO intake meeting <50% of estimated nutritional needs >5 days and 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 Problem Recommendation Dietitian Recommendations/Changes Will continue carbohydrate controlled diet w/ 120mL glucerna ONS w/meals for additional calories/protein if consumed Lab / Micro Data Result Diagrams: 12/27/20 07:04 12/27/20 07:04 Labs: Laboratory Results - last 24 hr 12/26/20 21:13: POC Glucose 440 H 12/27/20 07:04: WBC 4.5, RBC 4.17 L, Hgb 12.9 L, Hct 38.0 L, MCV 91.1, MCH 30.9, MCHC 33.9, RDW Std Deviation 44.6 H, RDW Coeff of Luke 13.2, Plt Count 109 L, MPV 10.7, Immature Gran % (Auto) 1.800 H, Neut % (Auto) 78.3 H, Lymph % (Auto) 14.5 L, [place] % (Auto) 5.4, Eos % (Auto) 0.0, Baso % (Auto) 0.0, Absolute Neuts (auto) 3.5, Absolute Lymphs (auto) 0.65 L, Nucleated RBC % 0 12/27/20 07:04: Sodium 138, Potassium 5.0, Chloride 104, Carbon Dioxide 25.0, Anion Gap 9, BUN 41 H, Creatinine 1.37 H, Estim Creat Clear Calc 55.19, Est GFR (MDRD) Af Amer 67, Est GFR (MDRD) Non-Af 56 L, BUN/Creatinine Ratio 29.9 H, Glucose 176 H, Calcium 9.2, Total Bilirubin 0.50, AST 32, ALT 58, Alkaline Phosphatase 54, Total Protein 7.2, Albumin 2.5 L, Globulin 4.7 H, Albumin/Globulin Ratio 0.5 L 12/27/20 11:01: POC Glucose 373 H 12/27/20 16:26: POC Glucose 278 H Micro: Microbiology 12/26/20 14:35 Sputum, Expectorated/Coughed Gram Stain - Final 12/26/20 14:35 Sputum, Expectorated/Coughed Respiratory Culture - Preliminary Appears to be normal respiratory nelsy. Further studies to follow. 12/19/20 20:40 Urine, Clean Catch Legionella Antigen - Final 12/19/20 20:40 Urine, Clean Catch Streptococcus pneumoniae Antigen (M - Final Physical Exam Const alert, oriented x3 and no apparent distress General Appearance: cooperative HEENT normocephalic and moist oral mucous membranes Eyes PERRL, EOMs intact bilaterally and conjunctivae normal Neck supple and no JVD Resp normal respiratory effort, no retractions and no use of accessory muscles Auscultation: diminished lung sounds; Negative for crackles, rales, rhonchi or wheezes Cardio regular rate, regular rhythm, S1 normal heart sound, S2 normal heart sound and no murmurs GI normal to inspection, nondistended, normoactive bowel sounds, soft to palpation, non-tender and non-distended; Negative for hepatosplenomegaly Extremity no clubbing, cyanosis or edema Skin no rashes or lesions noted Neuro no focal motor deficits and no sensory deficits noted Psych affect normal Appearance: appropriate Assessment & Plan Assessment/Plan (1) Pneumonia due to COVID-19 virus: (2) Respiratory failure: QUALIFIERS: Chronicity: acute Respiratory failure complication: hypoxia Qualified Code(s): J96.01 - Acute respiratory failure with hypoxia PLAN: 1. Acute respiratory failure secondary to COVID-19 pneumonia -Appreciate infectious disease and pulmonology assistance -Continue with baricitinib and Decadron, he has completed remdesivir -Encourage incentive spirometry and ambulation. He seems better today sitting up in the chair with nasal cannula -CBC and CMP daily -PT and OT following -CTA was negative for PE -Continue to monitor kidney function and to continue with Lasix as needed 3. Diabetes mellitus type II -Continue AC at bedtime blood sugars with sliding scale insulin as ordered -Continue to hold Metformin -Continue with long-acting insulin and will make adjustments as necessary 4. CKD stage IIIb -Stable patient at baseline creatinine -CMP daily DVT: Lovenox Charges/Coding Visit Charges Inpatient E&M: 42500 Subs Hosp L2
[2020-12-27 22:26] LABS: Bedside Glucose 418 mg/dL (70-110)
[2020-12-28] VITALS (14 sets, daily range): BP systolic 128–157; BP diastolic 62–78; PULSE 46–69; RESP 18–20; TEMP 36.6–37.4; O2SAT 92–100
[2020-12-28 06:56] LABS: Absolute Lymphocyte Count 0.65 X10^3/uL (0.83-4.51); Absolute Neutrophil Count 4.6 X10^3/uL (2.0-7.7); Basophil# 0.01 X10^3/uL; Basophil% 0.2 % (0-1); Hematocrit 39.6 % (40-54); Hemoglobin 13.8 g/dL (13.0-16.5); Lymphocyte # 0.65 X10^3/ul (0.83-4.51); Lymphocyte % 11.8 % (19-41); Mean Corp Hgb Conc 34.8 g/dL (32-36); Mean Corpuscular Hgb 31.3 pg (27.0-32.0); Mean Corpuscular Volume 89.8 fL (80-94); Mean Platelet Vol. 10.5 fl (6.2-12.0); Monocyte% 3.6 % (0-10); NRBC Flagged by Analyzer 0 % (0-5); Neutrophil # 4.55 X10^3/uL (2.7-7.7); Neutrophil % 82.4 % (47-70); Platelet Count 120 K/mm3 (150-450); RBC Distribution Width CV 13.1 % (11.6-14.6); RBC Distribution Width SD 43.4 fl (35.1-43.9); Red Blood Count 4.41 M/mm3 (4.6-6.2); White Blood Count 5.5 K/mm3 (4.4-11.0)
[2020-12-28 07:31] LABS: ALB/GLOB Ratio 0.6 RATIO (0.9-2.4); AST(SGOT) 28 U/L (15-37); Alanine Aminotransfer ALT/SGPT 62 U/L (16-61); Albumin, Serum 2.6 g/dL (3.2-5.0); Alkaline Phosphatase 54 U/L (45-117); Anion Gap 8 (5-15); BUN 37 mg/dL (7-18); BUN/Creat Ratio 30.6 RATIO (10-20); Calcium,Total 9.2 mg/dL (8.5-10.1); Chloride 104 mmol/L (98-107); Creatinine, Serum 1.21 mg/dL (0.70-1.30); EST Glomerular Filtration Rate 64 mL/min (>60); Est Glom Filt Rate - Afr Amer 78 mL/min (>60); Estimated Creatinine Clearance 62.49 ml/min; Globulin 4.6 g/dL (2.2-4.2); Glucose 159 mg/dL (74-106); Potassium 4.5 mmol/L (3.5-5.1); Protein, Total 7.2 g/dL (6.4-8.2); Sodium Level 135 mmol/L (136-145)
[2020-12-28] MEDS: Insulin Lispro 100 UNIT/ML INSULN.PEN 10 UNIT SC ×3 (08:49→17:58)
[2020-12-28] MEDS: Acetaminophen 325 MG Tablet 650 MG PO ×2 (08:50→19:50)
[2020-12-28] MEDS: dexAMETHasone 2 MG TABLET 6 MG PO (08:50)
[2020-12-28] MEDS: Enoxaparin 40 MG/0.4 ML Syringe SC ×2 (08:50→21:11)
[2020-12-28] MEDS: guaiFENesin 1,200 MG Tablet 1200 MG PO ×2 (08:50→21:11)
[2020-12-28 09:00] LABS: Bedside Glucose 129 mg/dL (70-110)
--- NOTE | 2020-12-28 11:43 | PN.CC_ITS ---
Assessment & Plan Assessment/Plan (1) Respiratory failure: QUALIFIERS: Chronicity: acute Respiratory failure complication: hypoxia Qualified Code(s): J96.01 - Acute respiratory failure with hypoxia (2) Pneumonia due to COVID-19 virus: PLAN: RECOMMENDATIONS: 1. Continue to wean FiO2 to maintain oxygen saturations at or above 90%. 2. Remdesivir completed. Continue baricitinib as ordered (01/03/21). 3. Continue Decadron to complete 10 days of therapy (12/29/20). 4. Continue Lovenox twice daily. 5. Continue empiric antimicrobials to complete 7 days of therapy. 6. Awake prone positioning was encouraged. 7. Challenge with diuretics IMPRESSIONS: 1. Acute hypoxemic respiratory failure secondary to COVID-19 pneumonia Symptom onset was initially around December 12. Over the course of his hospitalization, the patient's oxygenation status has slowly worsened. He is now requiring heated high flow oxygen. The patient has completed a treatment course of remdesivir and remains on Decadron, baricitinib and Lovenox. Patient appears to be stabilizing from a respiratory standpoint. Patient appears to h ave responded well to nasal saline. Patient with highly variable oxygen requirements indicating some sort of obstruction whether nasal or mucous plugging. Continue to encourage incentive spirometer, nasal saline and Acapella. We will challenge with diuretics today. 2. Acute on chronic kidney disease Likely prerenal in etiology. Will attempt to challenge with p.o. diuretics 3. Morbid obesity/diabetes mellitus/chronic kidney disease Complicates care, management, recovery and prognosis. Continue home medications as indicated. This note was generated with [employer] dictation software. It may contain incorrect words, spelling, and punctuation that were not noted in checking the note before signing. Subjective Subjective Patient did okay overnight. No acute issues were reported. Patient has had a highly variable oxygen saturation noted. Patient did have elevated blood glucoses over the last 24 hours. Patient has reported significant lower extremity edema. Patient is not reporting any chest pain. Patient does have a productive cough. Objective Data Objective Data Vital Signs: Vital Signs Temp Pulse Resp BP Pulse Ox 36.8 C 62 20 H 157/78 H 92 12/28/20 08:57 12/28/20 08:57 12/28/20 08:57 12/28/20 08:57 12/28/20 08:57 Oxygen Flow Rate (L/min) 13 Oxygen Delivery Method Nasal Cannula Weight: 126.4 kg Body Mass Index (BMI) 41.1 Intake & Output: Intake and Output for Last 24 Hours 12/26/20 12/27/20 12/28/20 23:59 23:59 23:59 Intake Total 550 / 550 390 / 390 50 / 50 Output Total 2500 / 2500 675 / 675 425 / 425 Balance -1950 / -1950 -285 / -285 -375 / -375 Medical Nutrition Assessment Dietitian: Malnutrition Criteria Met Start: 12/19/20 09:54 Freq: Status: Active Protocol: Document 12/27/20 14:49 RMA (Rec: 12/27/20 14:49 RMA [id number]) Nutrition Malnutrition Evidence of Malnutrition Exists Yes Malnutrition (severe): Acute Illness/Injury Evidenced By Suboptimal Energy Intake ( Severe),Weight Loss (Severe) Clinical Problem Acute Disease or Injury Related Malnutrition Etiology severe, acute malnutrition related to decreased energy intake d/t acute COVID-19 illness Signs/Symptoms as evidenced by PO intake meeting <50% of estimated nutritional needs >5 days and unintentional wt loss of 2. 87kg/2.3% x 1 wk [employer]. Status Active Problem Recommendation Dietitian Recommendations/Changes Will continue carbohydrate controlled diet w/ 120mL glucerna ONS w/meals for additional calories/protein if consumed Lab / Micro Data Result Diagrams: 12/28/20 06:30 12/28/20 06:30 Labs: Laboratory Results - last 24 hr 12/27/20 16:26: POC Glucose 278 H 12/27/20 22:08: POC Glucose 418 H 12/28/20 06:30: WBC 5.5, RBC 4.41 L, Hgb 13.8, Hct 39.6 L, MCV 89.8, MCH 31.3, MCHC 34.8, RDW Std Deviation 43.4, RDW Coeff of Luke 13.1, Plt Count 120 L, MPV 10.5, Immature Gran % (Auto) 2.000 H, Neut % (Auto) 82.4 H, Lymph % (Auto) 11.8 L, [place] % (Auto) 3.6, Eos % (Auto) 0.0, Baso % (Auto) 0.2, Absolute Neuts (auto) 4.6, Absolute Lymphs (auto) 0.65 L, Nucleated RBC % 0 12/28/20 06:30: Sodium 135 L, Potassium 4.5, Chloride 104, Carbon Dioxide 23.0, Anion Gap 8, BUN 37 H, Creatinine 1.21, Estim Creat Clear Calc 62.49, Est GFR (MDRD) Af Amer 78, Est GFR (MDRD) Non-Af 64, BUN/Creatinine Ratio 30.6 H, Glucose 159 H, Calcium 9.2, Total Bilirubin 0.50, AST 28, ALT 62 H, Alkaline Phosphatase 54, Total Protein 7.2, Albumin 2.6 L, Globulin 4.6 H, Albumin/Globulin Ratio 0.6 L 12/28/20 08:44: POC Glucose 129 H Micro: Microbiology 12/26/20 14:35 Sputum, Expectorated/Coughed Gram Stain - Final 12/26/20 14:35 Sputum, Expectorated/Coughed Respiratory Culture - Final Presumptive C albicans 12/19/20 20:40 Urine, Clean Catch Legionella Antigen - Final 12/19/20 20:40 Urine, Clean Catch Streptococcus pneumoniae Antigen (M - Final Physical Exam Const alert and no apparent distress Constitutional Narrative: On nasal cannula oxygen General Appearance: cooperative Nutritional Appearance: morbidly obese HEENT normocephalic, head/scalp atraumatic and moist oral mucous membranes Eyes PERRL and EOMs intact bilaterally Neck supple General: trachea midline Chest inspection of chest normal Resp Auscultation: diminished lung sounds Cardio regular rate and regular rhythm GI normal to inspection, nondistended, normoactive bowel sounds Extremity no clubbing, cyanosis or edema Skin no rashes or lesions noted Neuro moves all extremities and no focal motor deficits Psych cooperative and affect normal Charges/Coding Visit Charges Inpatient E&M: 52085 Subs Hosp L3
[2020-12-28] MEDS: Insulin Lispro 100 UNIT/ML INSULN.PEN SC ×3 (12:45→21:11)
[2020-12-28] MEDS: Furosemide 40 MG Tablet PO (12:46)
[2020-12-28 12:55] LABS: Bedside Glucose 274 mg/dL (70-110)
--- NOTE | 2020-12-28 15:52 | PCM.PN.HOSP ---
Subjective Subjective He is down to 11 L nasal cannula. He was given a dose of Lasix this morning byBut doing well, breathing little bit easier. pulmonology. Objective Data Objective Data Vital Signs: Vital Signs Temp Pulse Resp BP Pulse Ox 98.2 F 60 20 H 157/78 H 94 12/28/20 08:57 12/28/20 14:54 12/28/20 08:57 12/28/20 08:57 12/28/20 15:19 Oxygen Flow Rate (L/min) 8 Oxygen Delivery Method Nasal Cannula Weight: 278 lb 10.629 oz Body Mass Index (BMI) 41.1 Intake & Output: Intake and Output for Last 24 Hours 12/27/20 12/28/20 12/29/20 03:59 03:59 03:59 Intake Total 550 / 550 390 / 390 530 / 530 Output Total 2049 / 2049 675 / 675 425 / 425 Balance -1500 / -1500 -285 / -285 105 / 105 Medical Nutrition Assessment Dietitian: Malnutrition Criteria Met Start: 12/19/20 09:54 Freq: Status: Active Protocol: Document 12/27/20 14:49 RMA (Rec: 12/27/20 14:49 RMA [id number]) Nutrition Malnutrition Evidence of Malnutrition Exists Yes Malnutrition (severe): Acute Illness/Injury Evidenced By Suboptimal Energy Intake ( Severe),Weight Loss (Severe) Clinical Problem Acute Disease or Injury Related Malnutrition Etiology severe, acute malnutrition related to decreased energy intake d/t acute COVID-19 illness Signs/Symptoms as evidenced by PO intake meeting <50% of estimated nutritional needs >5 days and 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 Problem Recommendation Dietitian Recommendations/Changes Will continue carbohydrate controlled diet w/ 120mL glucerna ONS w/meals for additional calories/protein if consumed Lab / Micro Data Result Diagrams: 12/28/20 06:30 12/28/20 06:30 Labs: Laboratory Results - last 24 hr 12/27/20 16:26: POC Glucose 278 H 12/27/20 22:08: POC Glucose 418 H 12/28/20 06:30: WBC 5.5, RBC 4.41 L, Hgb 13.8, Hct 39.6 L, MCV 89.8, MCH 31.3, MCHC 34.8, RDW Std Deviation 43.4, RDW Coeff of Luke 13.1, Plt Count 120 L, MPV 10.5, Immature Gran % (Auto) 2.000 H, Neut % (Auto) 82.4 H, Lymph % (Auto) 11.8 L, [place] % (Auto) 3.6, Eos % (Auto) 0.0, Baso % (Auto) 0.2, Absolute Neuts (auto) 4.6, Absolute Lymphs (auto) 0.65 L, Nucleated RBC % 0 12/28/20 06:30: Sodium 135 L, Potassium 4.5, Chloride 104, Carbon Dioxide 23.0, Anion Gap 8, BUN 37 H, Creatinine 1.21, Estim Creat Clear Calc 62.49, Est GFR (MDRD) Af Amer 78, Est GFR (MDRD) Non-Af 64, BUN/Creatinine Ratio 30.6 H, Glucose 159 H, Calcium 9.2, Total Bilirubin 0.50, AST 28, ALT 62 H, Alkaline Phosphatase 54, Total Protein 7.2, Albumin 2.6 L, Globulin 4.6 H, Albumin/Globulin Ratio 0.6 L 12/28/20 08:44: POC Glucose 129 H 12/28/20 12:44: POC Glucose 274 H Micro: Microbiology 12/26/20 14:35 Sputum, Expectorated/Coughed Gram Stain - Final 12/26/20 14:35 Sputum, Expectorated/Coughed Respiratory Culture - Final Presumptive C albicans 12/19/20 20:40 Urine, Clean Catch Legionella Antigen - Final 12/19/20 20:40 Urine, Clean Catch Streptococcus pneumoniae Antigen (M - Final Physical Exam Const alert, oriented x3 and no apparent distress General Appearance: cooperative HEENT normocephalic and moist oral mucous membranes Eyes PERRL, EOMs intact bilaterally and conjunctivae normal Neck supple and no JVD Resp normal respiratory effort, no retractions and no use of accessory muscles Auscultation: diminished lung sounds; Negative for crackles, rales, rhonchi or wheezes Cardio regular rate, regular rhythm, S1 normal heart sound, S2 normal heart sound and no murmurs GI normal to inspection, nondistended, normoactive bowel sounds, soft to palpation, non-tender and non-distended; Negative for hepatosplenomegaly Extremity no clubbing, cyanosis or edema Skin no rashes or lesions noted Neuro no focal motor deficits and no sensory deficits noted Psych affect normal Appearance: appropriate Assessment & Plan Assessment/Plan (1) Pneumonia due to COVID-19 virus: (2) Respiratory failure: QUALIFIERS: Chronicity: acute Respiratory failure complication: hypoxia Qualified Code(s): J96.01 - Acute respiratory failure with hypoxia PLAN: 1. Acute respiratory failure secondary to COVID-19 pneumonia -Appreciate infectious disease and pulmonology assistance -Continue with baricitinib, he has completed remdesivir, he completed 10 doses of Decadron as well -He has completed 7 days of Zosyn -Encourage incentive spirometry and ambulation. He seems better today sitting up in the chair with nasal cannula -CBC and CMP daily -PT and OT following -CTA was negative for PE -Continue to monitor kidney function and to continue with Lasix as needed 3. Diabetes mellitus type II -Continue AC at bedtime blood sugars with sliding scale insulin as ordered -Continue to hold Metformin -Continue with long-acting insulin and will make adjustments as necessary 4. CKD stage IIIb -Stable patient at baseline creatinine -CMP daily DVT: Lovenox Charges/Coding Visit Charges Inpatient E&M: 58130 Subs Hosp L2
[2020-12-28 17:46] LABS: Bedside Glucose 411 mg/dL (70-110)
--- NOTE | 2020-12-28 21:25 | NURSING ---
decrease 02 to 9lnc
[2020-12-28 21:36] LABS: Bedside Glucose 439 mg/dL (70-110)
--- NOTE | 2020-12-28 22:50 | NURSING ---
decreased 02 to 8lnc. Pt sleeping at this time
[2020-12-29] VITALS (16 sets, daily range): BP systolic 103–145; BP diastolic 65–85; PULSE 49–78; RESP 16–20; TEMP 36.6–37.1; O2SAT 79–100
--- NOTE | 2020-12-29 00:40 | NURSING ---
po 100% on 8lnc. Pt refused to 6lnc. Pt slipping on side
--- NOTE | 2020-12-29 05:24 | NURSING ---
02 reduced to 4lnc
[2020-12-29 07:40] LABS: Absolute Lymphocyte Count 0.68 X10^3/uL (0.83-4.51); Absolute Neutrophil Count 4.7 X10^3/uL (2.0-7.7); Basophil# 0.01 X10^3/uL; Basophil% 0.2 % (0-1); Eosinophil# 0.01 X10^3/uL; Eosinophils% 0.2 % (0-5); Hematocrit 37.7 % (40-54); Lymphocyte # 0.68 X10^3/ul (0.83-4.51); Lymphocyte % 11.8 % (19-41); Mean Corp Hgb Conc 34.5 g/dL (32-36); Mean Platelet Vol. 11.1 fl (6.2-12.0); Monocyte# 0.25 X10^3/uL; Monocyte% 4.3 % (0-10); NRBC Flagged by Analyzer 0 % (0-5); Neutrophil # 4.72 X10^3/uL (2.7-7.7); Neutrophil % 82.1 % (47-70); Platelet Count 107 K/mm3 (150-450); RBC Distribution Width CV 13.2 % (11.6-14.6); Red Blood Count 4.19 M/mm3 (4.6-6.2); White Blood Count 5.8 K/mm3 (4.4-11.0)
[2020-12-29 07:51] LABS: ALB/GLOB Ratio 0.5 RATIO (0.9-2.4); AST(SGOT) 35 U/L (15-37); Alanine Aminotransfer ALT/SGPT 66 U/L (16-61); Albumin, Serum 2.4 g/dL (3.2-5.0); Alkaline Phosphatase 52 U/L (45-117); Anion Gap 7 (5-15); BUN 43 mg/dL (7-18); BUN/Creat Ratio 31.9 RATIO (10-20); Calcium,Total 8.9 mg/dL (8.5-10.1); Chloride 104 mmol/L (98-107); Creatinine, Serum 1.35 mg/dL (0.70-1.30); EST Glomerular Filtration Rate 57 mL/min (>60); Est Glom Filt Rate - Afr Amer 69 mL/min (>60); Estimated Creatinine Clearance 56.01 ml/min; Globulin 4.4 g/dL (2.2-4.2); Glucose 151 mg/dL (74-106); Potassium 4.5 mmol/L (3.5-5.1); Protein, Total 6.8 g/dL (6.4-8.2); Sodium Level 136 mmol/L (136-145)
--- NOTE | 2020-12-29 08:43 | PN.CC_ITS ---
Assessment & Plan Assessment/Plan (1) Respiratory failure: QUALIFIERS: Chronicity: acute Respiratory failure complication: hypoxia Qualified Code(s): J96.01 - Acute respiratory failure with hypoxia (2) Pneumonia due to COVID-19 virus: PLAN: RECOMMENDATIONS: 1. Continue to wean FiO2 to maintain oxygen saturations at or above 90%. 2. Remdesivir completed. Continue baricitinib as ordered (01/03/21) or until discharge. 3. Continue Decadron to complete 10 days of therapy (12/29/20). 4. Continue Lovenox twice daily. 5. Continue empiric antimicrobials to complete 7 days of therapy. 6. Awake prone positioning was encouraged. 7. Obtain walking oximetry. Potential discharge if tolerates 6 L or less IMPRESSIONS: 1. Acute hypoxemic respiratory failure secondary to COVID-19 pneumonia Symptom onset was initially around December 12. Over the course of his hospitalization, the patient's oxygenation status has slowly worsened. He is now requiring heated high flow oxygen. The patient has completed a treatment course of remdesivir and remains on Decadron, baricitinib and Lovenox. Patient appears to be stabilizing from a respiratory standpoint. Patient appears to have responded well to nasal saline. Patient with highly variable oxygen requirements indicating some sort of obstruction whether nasal or mucous plugging. Patient with significant improvement today. Will attempt a walking oximetry. If patient able to ambulate on 6 L or less, potential discharge with follow-up in our office in 4 to 6 weeks. Patient was advised to get a pulse oximeter. 2. Acute on chronic kidney disease Likely prerenal in etiology. Will attempt to challenge with p.o. diuretics as patient tolerates 3. Morbid obesity/diabetes mellitus/chronic kidney disease Complicates care, management, recovery and prognosis. Continue home medications as indicated. This note was generated with [employer] dictation software. It may contain incorrect words, spelling, and punctuation that were not noted in checking the note before signing. Subjective Subjective Patient significantly improved today compared to yesterday. Patient states he has had a productive cough. This is worse with change in body position and exertion. No hemoptysis is been reported. Objective Data Objective Data Vital Signs: Vital Signs Temp Pulse Resp BP Pulse Ox 36.6 C 49 L 20 H 103/71 94 12/29/20 03:21 12/29/20 07:04 12/29/20 05:43 12/29/20 03:21 12/29/20 07:35 Oxygen Flow Rate (L/min) 4 Oxygen Delivery Method Nasal Cannula Weight: 126.4 kg Body Mass Index (BMI) 41.1 Intake & Output: Intake and Output for Last 24 Hours 12/27/20 12/28/20 12/29/20 23:59 23:59 23:59 Intake Total 390 / 390 1330 / 1330 240 / 240 Output Total 675 / 675 875 / 875 375 / 375 Balance -285 / -285 455 / 455 -135 / -135 Medical Nutrition Assessment Dietitian: Malnutrition Criteria Met Start: 12/19/20 09:54 Freq: Status: Active Protocol: Document 12/27/20 14:49 RMA (Rec: 12/27/20 14:49 RMA [id number]) Nutrition Malnutrition Evidence of Malnutrition Exists Yes Malnutrition (severe): Acute Illness/Injury Evidenced By Suboptimal Energy Intake ( Severe),Weight Loss (Severe) Clinical Problem Acute Disease or Injury Related Malnutrition Etiology severe, acute malnutrition related to decreased energy intake d/t acute COVID-19 illness Signs/Symptoms as evidenced by PO intake meeting <50% of estimated nutritional needs >5 days and 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 Problem Recommendation Dietitian Recommendations/Changes Will continue carbohydrate controlled diet w/ 120mL glucerna ONS w/meals for additional calories/protein if consumed Lab / Micro Data Result Diagrams: 12/29/20 06:45 12/29/20 06:45 Labs: Laboratory Results - last 24 hr 12/28/20 08:44: POC Glucose 129 H 12/28/20 12:44: POC Glucose 274 H 12/28/20 16:21: POC Glucose 411 H 12/28/20 21:10: POC Glucose 439 H 12/29/20 06:45: Sodium 136, Potassium 4.5, Chloride 104, Carbon Dioxide 25.0, A nion Gap 7, BUN 43 H, Creatinine 1.35 H, Estim Creat Clear Calc 56.01, Est GFR (MDRD) Af Amer 69, Est GFR (MDRD) Non-Af 57 L, BUN/Creatinine Ratio 31.9 H, Glucose 151 H, Calcium 8.9, Total Bilirubin 0.40, AST 35, ALT 66 H, Alkaline Phosphatase 52, Total Protein 6.8, Albumin 2.4 L, Globulin 4.4 H, Albumi n/Globulin Ratio 0.5 L 12/29/20 06:45: WBC 5.8, RBC 4.19 L, Hgb 13.0, Hct 37.7 L, MCV 90.0, MCH 31.0, MCHC 34.5, RDW Std Deviation 44.0 H, RDW Coeff of Luke 13.2, Plt Count 107 L, MPV 11.1, Immature Gran % (Auto) 1.400 H, Neut % (Auto) 82.1 H, Lymph % (Auto) 11.8 L, [place] % (Auto) 4.3, Eos % (Auto) 0.2, Baso % (Auto) 0.2, Absolute Neuts (auto) 4.7, Absolute Lymphs (auto) 0.68 L, Nucleated RBC % 0 Micro: Microbiology 12/26/20 14:35 Sputum, Expectorated/Coughed Gram Stain - Final 12/26/20 14:35 Sputum, Expectorated/Coughed Respiratory Culture - Final Presumptive C albicans 12/19/20 20:40 Urine, Clean Catch Legionella Antigen - Final 12/19/20 20:40 Urine, Clean Catch Streptococcus pneumoniae Antigen (M - Final Physical Exam Const alert and no apparent distress Constitutional Narrative: On nasal cannula oxygen General Appearance: cooperative Nutritional Appearance: morbidly obese HEENT normocephalic, head/scalp atraumatic and moist oral mucous membranes Eyes PERRL and EOMs intact bilaterally Neck supple General: trachea midline Chest inspection of chest normal Resp Auscultation: diminished lung sounds Cardio regular rate and regular rhythm GI normal to inspection, nondistended, normoactive bowel sounds Extremity no clubbing, cyanosis or edema Skin no rashes or lesions noted Neuro moves all extremities and no focal motor deficits Psych cooperative and affect normal Charges/Coding Visit Charges Inpatient E&M: 04555 Subs Hosp L2
[2020-12-29] MEDS: Insulin Lispro 100 UNIT/ML INSULN.PEN 10 UNIT SC ×3 (09:02→16:24)
[2020-12-29] MEDS: Enoxaparin 40 MG/0.4 ML Syringe SC ×2 (09:06→22:35)
[2020-12-29] MEDS: guaiFENesin 1,200 MG Tablet 1200 MG PO ×2 (09:07→22:32)
[2020-12-29 09:21] LABS: Bedside Glucose 137 mg/dL (70-110)
[2020-12-29] MEDS: Insulin Lispro 100 UNIT/ML INSULN.PEN SC ×3 (10:58→22:36)
[2020-12-29 11:10] LABS: Bedside Glucose 260 mg/dL (70-110)
--- NOTE | 2020-12-29 15:50 | PN.HOSP_ITS ---
Subjective Subjective Doing very well, breathing a lot easier. No issues overnight. He is down to 4 L nasal cannula though he did need 8 L with ambulation Objective Data Objective Data Vital Signs: Vital Signs Temp Pulse Resp BP Pulse Ox 98.2 F 69 18 145/83 H 97 12/29/20 10:54 12/29/20 15:03 12/29/20 10:54 12/29/20 10:54 12/29/20 14:00 Oxygen Flow Rate (L/min) [ 6 AMBULATING with Oxygen #3] Oxygen Flow Rate (L/min) [ 4 AMBULATING with Oxygen #2] Oxygen Flow Rate (L/min) [ 2 AMBULATING with Oxygen #1] Oxygen Flow Rate (L/min) [At 2 REST with Oxygen] Oxygen Flow Rate (L/min) [At 0 REST on Room Air] Oxygen Flow Rate (L/min) 4.5 Oxygen Delivery Method Nasal Cannula Weight: 278 lb 10.629 oz Body Mass Index (BMI) 41.1 Intake & Output: Intake and Output for Last 24 Hours 12/28/20 12/29/20 12/30/20 03:59 03:59 03:59 Intake Total 390 / 390 1280 / 1280 760 / 760 Output Total 675 / 675 875 / 875 775 / 775 Balance -285 / -285 405 / 405 -15 / -15 Medical Nutrition Assessment Dietitian: Malnutrition Criteria Met Start: 12/19/20 09:54 Freq: Status: Active Protocol: Document 12/27/20 14:49 RMA (Rec: 12/27/20 14:49 RMA [id number]) Nutrition Malnutrition Evidence of Malnutrition Exists Yes Malnutrition (severe): Acute Illness/Injury Evidenced By Suboptimal Energy Intake ( Severe),Weight Loss (Severe) Clinical Problem Acute Disease or Injury Related Malnutrition Etiology severe, acute malnutrition related to decreased energy intake d/t acute COVID-19 illness Signs/Symptoms as evidenced by PO intake meeting <50% of estimated nutritional needs >5 days and 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 Problem Recommendation Dietitian Recommendations/Changes Will continue carbohydrate controlled diet w/ 120mL glucerna ONS w/meals for additional calories/protein if consumed Lab / Micro Data Result Diagrams: 12/29/20 06:45 12/29/20 06:45 Labs: Laboratory Results - last 24 hr 12/28/20 16:21: POC Glucose 411 H 12/28/20 21:10: POC Glucose 439 H 12/29/20 06:45: Sodium 136, Potassium 4.5, Chloride 104, Carbon Dioxide 25.0, Anion Gap 7, BUN 43 H, Creatinine 1.35 H, Estim Creat Clear Calc 56.01, Est GFR (MDRD) Af Amer 69, Est GFR (MDRD) Non-Af 57 L, BUN/Creatinine Ratio 31.9 H, Glucose 151 H, Calcium 8.9, Total Bilirubin 0.40, AST 35, ALT 66 H, Alkaline Phosphatase 52, Total Protein 6.8, Albumin 2.4 L, Globulin 4.4 H, Albumin/Globulin Ratio 0.5 L 12/29/20 06:45: WBC 5.8, RBC 4.19 L, Hgb 13.0, Hct 37.7 L, MCV 90.0, MCH 31.0, MCHC 34.5, RDW Std Deviation 44.0 H, RDW Coeff of Luke 13.2, Plt Count 107 L, MPV 11.1, Immature Gran % (Auto) 1.400 H, Neut % (Auto) 82.1 H, Lymph % (Auto) 11.8 L, [place] % (Auto) 4.3, Eos % (Auto) 0.2, Baso % (Auto) 0.2, Absolute Neuts (auto) 4.7, Absolute Lymphs (auto) 0.68 L, Nucleated RBC % 0 12/29/20 08:58: POC Glucose 137 H 12/29/20 10:51: POC Glucose 260 H Micro: Microbiology 12/26/20 14:35 Sputum, Expectorated/Coughed Gram Stain - Final 12/26/20 14:35 Sputum, Expectorated/Coughed Respiratory Culture - Final Presumptive C albicans 12/19/20 20:40 Urine, Clean Catch Legionella Antigen - Final 12/19/20 20:40 Urine, Clean Catch Streptococcus pneumoniae Antigen (M - Final Physical Exam Const alert, oriented x3 and no apparent distress General Appearance: cooperative HEENT normocephalic and moist oral mucous membranes Eyes PERRL, EOMs intact bilaterally and conjunctivae normal Neck supple and no JVD Resp normal respiratory effort, no retractions and no use of accessory muscles Auscultation: diminished lung sounds; Negative for crackles, rales, rhonchi or wheezes Cardio regular rate, regular rhythm, S1 normal heart sound, S2 normal heart sound and no murmurs GI soft to palpation, non-tender and non-distended; Negative for hepatosplenomegaly Extremity no clubbing, cyanosis or edema Skin no rashes or lesions noted Neuro no focal motor deficits and no sensory deficits noted Psych affect normal Appearance: appropriate Assessment & Plan Assessment/Plan (1) Pneumonia due to COVID-19 virus: (2) Respiratory failure: QUALIFIERS: Chronicity: acute Respiratory failure complication: hypoxia Qualified Code(s): J96.01 - Acute respiratory failure with hypoxia PLAN: 1. Acute respiratory failure secondary to COVID-19 pneumonia -Appreciate infectious disease and pulmonology assistance -Continue with baricitinib, he has completed remdesivir, he completed 10 doses of Decadron as well -He has completed 7 days of Zosyn -Encourage incentive spirometry and ambulation. He seems better today sitting up in the chair with nasal cannula -CBC and CMP daily -PT and OT following -CTA was negative for PE -Continue to monitor kidney function and to continue with Lasix as needed 3. Diabetes mellitus type II -Continue AC at bedtime blood sugars with sliding scale insulin as ordered -Continue to hold Metformin -Continue with long-acting insulin and will make adjustments as necessary 4. CKD stage IIIb -Stable patient at baseline creatinine -CMP daily DVT: Lovenox Charges/Coding Visit Charges Inpatient E&M: 98641 Subs Hosp L2
[2020-12-29 17:16] LABS: Bedside Glucose 302 mg/dL (70-110)
[2020-12-29] MEDS: Acetaminophen 325 MG Tablet 650 MG PO (22:35)
[2020-12-29] MEDS: Pantoprazole Sodium 40 MG Tablet PO (22:36)
[2020-12-29 22:51] LABS: Bedside Glucose 307 mg/dL (70-110)
[2020-12-30] VITALS (15 sets, daily range): BP systolic 108–144; BP diastolic 61–95; PULSE 55–83; RESP 16–18; TEMP 36.6–36.9; O2SAT 84–95
[2020-12-30 06:51] LABS: Anion Gap 8 (5-15); BUN 42 mg/dL (7-18); BUN/Creat Ratio 33.9 RATIO (10-20); Calcium,Total 8.7 mg/dL (8.5-10.1); Chloride 104 mmol/L (98-107); Creatinine, Serum 1.24 mg/dL (0.70-1.30); EST Glomerular Filtration Rate 63 mL/min (>60); Est Glom Filt Rate - Afr Amer 76 mL/min (>60); Estimated Creatinine Clearance 60.98 ml/min; Glucose 67 mg/dL (74-106); Potassium 3.9 mmol/L (3.5-5.1); Sodium Level 136 mmol/L (136-145)
[2020-12-30] MEDS: guaiFENesin 1,200 MG Tablet 1200 MG PO ×2 (08:54→20:53)
[2020-12-30] MEDS: Enoxaparin 40 MG/0.4 ML Syringe SC ×2 (08:55→20:52)
[2020-12-30 09:25] LABS: Bedside Glucose 96 mg/dL (70-110)
[2020-12-30 09:25] LABS: Bedside Glucose 66 mg/dL (70-110)
--- NOTE | 2020-12-30 10:13 | PN.CC_ITS ---
Assessment & Plan Assessment/Plan (1) Respiratory failure: QUALIFIERS: Chronicity: acute Respiratory failure complication: hypoxia Qualified Code(s): J96.01 - Acute respiratory failure with hypoxia (2) Pneumonia due to COVID-19 virus: PLAN: RECOMMENDATIONS: 1. Continue to wean FiO2 to maintain oxygen saturations at or above 90%. 2. Remdesivir completed. Continue baricitinib as ordered (01/03/21) or until discharge. 3. Completed Decadron therapy. Monitor blood sugars closely given discontinuation of steroids 4. Continue Lovenox twice daily. 5. Continue empiric antimicrobials to complete 7 days of therapy. 6. Awake prone positioning was encouraged. 7. Obtain walking oximetry. Potential discharge if tolerates 6 L or less 8. Continue aggressive diuresis until patient can ambulate on 6 L or less 9. Hemodynamically stable on nasal cannula oxygen. Will sign off from a pulmonary/critical care perspective IMPRESSIONS: 1. Acute hypoxemic respiratory failure secondary to COVID-19 pneumonia Symptom onset was initially around December 12. Over the course of his hospitalization, the patient's oxygenation status has slowly worsened. He is now requiring heated high flow oxygen. The patient has completed a treatment course of remdesivir and remains on Decadron, baricitinib and Lovenox. Patient appears to be stabilizing from a respiratory standpoint. Patient appears to have responded well to nasal saline. Patient with highly variable oxygen requirements indicating some sort of obstruction whether nasal or mucous plugging. Patient with significant improvement today. Will attempt a walking oximetry. If patient able to ambulate on 6 L or less, potential discharge with follow-up in our office in 4 to 6 weeks. Patient was advised to get a pulse oximeter. 2. Acute on chronic kidney disease Likely prerenal in etiology. Will attempt to challenge with p.o. diuretics as patient tolerates 3. Morbid obesity/diabetes mellitus/chronic kidney disease Complicates care, management, recovery and prognosis. Continue home med ications as indicated. This note was generated with [employer] dictation software. It may contain incorrect words, spelling, and punctuation that were not noted in checking the note before signing. Subjective Subjective Patient did well overnight. No acute issues were reported. Patient overall feels subjectively improved compared to previous. Patient did have a walking oximetry yesterday, but required 8 L to maintain saturations with activity. Objective Data Objective Data Vital Signs: Vital Signs Temp Pulse Resp BP Pulse Ox 36.9 C 82 16 144/95 H 84 12/30/20 09:00 12/30/20 09:00 12/30/20 09:00 12/30/20 09:00 12/30/20 09:20 Oxygen Flow Rate (L/min) [ 6 AMBULATING with Oxygen #3] Oxygen Flow Rate (L/min) [ 8 AMBULATING with Oxygen #2] Oxygen Flow Rate (L/min) [ 6 AMBULATING with Oxygen #1] Oxygen Flow Rate (L/min) [At 3 REST with Oxygen] Oxygen Flow Rate (L/min) [At 0 REST on Room Air] Oxygen Flow Rate (L/min) 3 Oxygen Delivery Method Nasal Cannula Weight: 126.4 kg Body Mass Index (BMI) 41.1 Intake & Output: Intake and Output for Last 24 Hours 12/28/20 12/29/20 12/30/20 23:59 23:59 23:59 Intake Total 1330 / 1330 1240 / 1240 Output Total 875 / 875 1125 / 1125 Balance 455 / 455 115 / 115 Medical Nutrition Assessment Dietitian: Malnutrition Criteria Met Start: 12/19/20 09:54 Freq: Status: Active Protocol: Document 12/27/20 14:49 RMA (Rec: 12/27/20 14:49 RMA [id number]) Nutrition Malnutrition Evidence of Malnutrition Exists Yes Malnutrition (severe): Acute Illness/Injury Evidenced By Suboptimal Energy Intake ( Severe),Weight Loss (Severe) Clinical Problem Acute Disease or Injury Related Malnutrition Etiology severe, acute malnutrition related to decreased energy intake d/t acute COVID-19 illness Signs/Symptoms as evidenced by PO intake meeting <50% of estimated nutritional needs >5 days and 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 Problem Recommendation Dietitian Recommendations/Changes Will continue carbohydrate controlled diet w/ 120mL glucerna ONS w/meals for additional calories/protein if consumed Lab / Micro Data Result Diagrams: 12/29/20 06:45 12/30/20 06:00 Labs: Laboratory Results - last 24 hr 12/29/20 10:51: POC Glucose 260 H 12/29/20 16:22: POC Glucose 302 H 12/29/20 22:28: POC Glucose 307 H 12/30/20 06:00: Sodium 136, Potassium 3.9, Chloride 104, Carbon Dioxide 24.0, Anion Gap 8, BUN 42 H, Creatinine 1.24, Estim Creat Clear Calc 60.98, Est GFR (MDRD) Af Amer 76, Est GFR (MDRD) Non-Af 63, BUN/Creatinine Ratio 33.9 H, Glucose 67 L, Calcium 8.7 12/30/20 08:52: POC Glucose 66 L 12/30/20 09:11: POC Glucose 96 Micro: Microbiology 12/26/20 14:35 Sputum, Expectorated/Coughed Gram Stain - Final 12/26/20 14:35 Sputum, Expectorated/Coughed Respiratory Culture - Final Presumptive C albicans 12/19/20 20:40 Urine, Clean Catch Legionella Antigen - Final 12/19/20 20:40 Urine, Clean Catch Streptococcus pneumoniae Antigen (M - Final Physical Exam Const alert and no apparent distress Constitutional Narrative: On nasal cannula oxygen General Appearance: cooperative Nutritional Appearance: morbidly obese HEENT normocephalic, head/scalp atraumatic and moist oral mucous membranes Eyes PERRL and EOMs intact bilaterally Neck supple General: trachea midline Chest inspection of chest normal Resp Auscultation: diminished lung sounds Cardio regular rate and regular rhythm GI normal to inspection, nondistended, normoactive bowel sounds Extremity no clubbing, cyanosis or edema Skin no rashes or lesions noted Neuro moves all extremities and no focal motor deficits Psych cooperative and affect normal Charges/Coding Visit Charges Inpatient E&M: 48426 Subs Hosp L2
[2020-12-30] MEDS: 0.9% Saline Lock 10 ML Syringe IV (11:33)
[2020-12-30] MEDS: Furosemide 40 MG/4 ML Vial IV (11:33)
[2020-12-30] MEDS: Acetaminophen 325 MG Tablet 650 MG PO ×2 (11:42→20:52)
[2020-12-30 11:50] LABS: Bedside Glucose 149 mg/dL (70-110)
--- NOTE | 2020-12-30 15:08 | CASEMGMT ---
Green sheet left on chart for home oxygen and pt has been independent in room, states no further concerns/needs. Luis HUBBARD CM
--- NOTE | 2020-12-30 17:17 | PN.HOSP_ITS ---
Subjective Subjective Doing well, down to 2 to 3 L nasal cannula at rest but still needs 6 to 8 L with ambulation Objective Data Objective Data Vital Signs: Vital Signs Temp Pulse Resp BP Pulse Ox 97.8 F 79 16 108/73 94 12/30/20 15:00 12/30/20 15:13 12/30/20 15:00 12/30/20 15:00 12/30/20 15:00 Oxygen Flow Rate (L/min) [ 6 AMBULATING with Oxygen #3] Oxygen Flow Rate (L/min) [ 8 AMBULATING with Oxygen #2] Oxygen Flow Rate (L/min) [ 6 AMBULATING with Oxygen #1] Oxygen Flow Rate (L/min) [At 3 REST with Oxygen] Oxygen Flow Rate (L/min) [At 0 REST on Room Air] Oxygen Flow Rate (L/min) 3 Oxygen Delivery Method Nasal Cannula Weight: 278 lb 10.629 oz Body Mass Index (BMI) 41.1 Intake & Output: Intake and Output for Last 24 Hours 12/29/20 12/30/20 12/31/20 03:59 03:59 03:59 Intake Total 1280 / 1280 1240 / 1240 240 / 240 Output Total 875 / 875 1125 / 1125 Balance 405 / 405 115 / 115 240 / 240 Medical Nutrition Assessment Dietitian: Malnutrition Criteria Met Start: 12/19/20 09:54 Freq: Status: Active Protocol: Document 12/27/20 14:49 RMA (Rec: 12/27/20 14:49 RMA [id number]) Nutrition Malnutrition Evidence of Malnutrition Exists Yes Malnutrition (severe): Acute Illness/Injury Evidenced By Suboptimal Energy Intake ( Severe),Weight Loss (Severe) Clinical Problem Acute Disease or Injury Related Malnutrition Etiology severe, acute malnutrition related to decreased energy intake d/t acute COVID-19 illness Signs/Symptoms as evidenced by PO intake meeting <50% of estimated nutritional needs >5 days and 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 Problem Recommendation Dietitian Recommendations/Changes Will continue carbohydrate controlled diet w/ 120mL glucerna ONS w/meals for additional calories/protein if consumed Lab / Micro Data Result Diagrams: 12/29/20 06:45 12/30/20 06:00 Labs: Laboratory Results - last 24 hr 12/29/20 22:28: POC Glucose 307 H 12/30/20 06:00: Sodium 136, Potassium 3.9, Chloride 104, Carbon Dioxide 24.0, Anion Gap 8, BUN 42 H, Creatinine 1.24, Estim Creat Clear Calc 60.98, Est GFR (MDRD) Af Amer 76, Est GFR (MDRD) Non-Af 63, BUN/Creatinine Ratio 33.9 H, Glucose 67 L, Calcium 8.7 12/30/20 08:52: POC Glucose 66 L 12/30/20 09:11: POC Glucose 96 12/30/20 11:31: POC Glucose 149 H Micro: Microbiology 12/26/20 14:35 Sputum, Expectorated/Coughed Gram Stain - Final 12/26/20 14:35 Sputum, Expectorated/Coughed Respiratory Culture - Final Presumptive C albicans 12/19/20 20:40 Urine, Clean Catch Legionella Antigen - Final 12/19/20 20:40 Urine, Clean Catch Streptococcus pneumoniae Antigen (M - Final Physical Exam Const alert, oriented x3 and no apparent distress General Appearance: cooperative HEENT normocephalic and moist oral mucous membranes Eyes PERRL, EOMs intact bilaterally and conjunctivae normal Neck supple and no JVD Resp normal respiratory effort, no retractions and no use of accessory muscles Auscultation: diminished lung sounds; Negative for crackles, rales, rhonchi or wheezes Cardio regular rate, regular rhythm, S1 normal heart sound, S2 normal heart sound and no murmurs GI normal to inspection, nondistended, normoactive bowel sounds, soft to palpation, non-tender and non-distended; Negative for hepatosplenomegaly Extremity no clubbing, cyanosis or edema Skin no rashes or lesions noted Neuro no focal motor deficits and no sensory deficits noted Psych affect normal Appearance: appropriate Assessment & Plan Assessment/Plan (1) Pneumonia due to COVID-19 virus: (2) Respiratory failure: QUALIFIERS: Chronicity: acute Respiratory failure complication: hypoxia Qualified Code(s): J96.01 - Acute respiratory failure with hypoxia PLAN: 1. Acute respiratory failure secondary to COVID-19 pneumonia -Appreciate infectious disease and pulmonology assistance -Continue with baricitinib, he has completed remdesivir, he completed 10 doses of Decadron as well -He has completed 7 days of Zosyn -Encourage incentive spirometry and ambulation. He seems better today sitting up in the chair with nasal cannula -CBC and CMP daily -PT and OT following -CTA was negative for PE -Continue to monitor kidney function and to continue with Lasix as needed 3. Diabetes mellitus type II -Continue AC at bedtime blood sugars with sliding scale insulin as ordered -Continue to hold Metformin -Continue with long-acting insulin and will make adjustments as necessary 4. CKD stage IIIb -Stable patient at baseline creatinine -CMP daily DVT: Lovenox Charges/Coding Visit Charges Inpatient E&M: 92173 Subs Hosp L2
[2020-12-30 18:01] LABS: Bedside Glucose 116 mg/dL (70-110)
[2020-12-30] MEDS: Insulin Lispro 100 UNIT/ML INSULN.PEN SC (20:54)
[2020-12-30 22:45] LABS: Bedside Glucose 257 mg/dL (70-110)
[2020-12-31] VITALS (7 sets, daily range): BP systolic 104–125; BP diastolic 53–81; PULSE 61–87; RESP 18; TEMP 36.6; O2SAT 86–95
[2020-12-31 06:30] LABS: Anion Gap 5 (5-15); BUN 39 mg/dL (7-18); BUN/Creat Ratio 28.7 RATIO (10-20); Calcium,Total 8.8 mg/dL (8.5-10.1); Chloride 105 mmol/L (98-107); Creatinine, Serum 1.36 mg/dL (0.70-1.30); EST Glomerular Filtration Rate 56 mL/min (>60); Est Glom Filt Rate - Afr Amer 68 mL/min (>60); Glucose 87 mg/dL (74-106); Potassium 4.1 mmol/L (3.5-5.1); Sodium Level 137 mmol/L (136-145)
[2020-12-31] MEDS: guaiFENesin 1,200 MG Tablet 1200 MG PO (10:19)
[2020-12-31] MEDS: Enoxaparin 40 MG/0.4 ML Syringe SC (10:19)
[2020-12-31] MEDS: Insulin Lispro 100 UNIT/ML INSULN.PEN SC ×3 (10:20→12:34)
--- NOTE | 2020-12-31 12:01 | PCM.DC ---
Discharge Instructions Diet Discharge Diet: Low fat / Low cholesterol and Carb Control Diet Activity Discharge Activity: Return to Normal Activity Dressing / Incision Call your doctor if you observe: Fever of 101 or Higher, Shortness of breath, Dizziness, Fainting spells, Swelling in the ankles, Chest pain and Increased palpitations (irregular heartbeat) Follow Up Care Test Results: Test results from this visit will be discussed in further detail at your follow-up appointment, if applicable. Discharge Plan Admission Admit Date/Time: 12/19/20 06:11 Attending Provider: Gorge Kerr Primary Care Provider: John Krishna Consulting Providers: Evin Méndez ; [employer] Discharge Orders/Prescriptions Prescriptions: Continued metformin 500 mg Tablet 500 mg PO BID RF: 0 pravastatin 10 mg Tablet 10 mg PO QHS RF: 0 Zyrtec-D DAILY RF: 0 lisinopril RF: 0 Referrals / Follow Up: John Krishna MD [Primary Care Provider] - Within 1 Week Disposition Disposition (needs filled in before D/C Order can be placed): Home, Self Care
[2020-12-31 13:00] LABS: Bedside Glucose 198 mg/dL (70-110)
--- NOTE | 2020-12-31 13:22 | DS.PCM_ITS ---
Providers Date of Admission: 12/19/20 Primary Care Physician: Dr. John Krishna MD Consultations 12/19/20 03:54 Consult: Infectious Disease Routine Consulting Provider: Evin Méndez Reason for Consult: Covid-19 EMERGENT Consult: No Notified: Yes Date Notified: 12/19/20 Time Notified: 06:45 Method of Notification: Text 12/21/20 09:15 Consult: Ship Engineer / Pulmonary Medicine Routine Consulting Provider: [employer] Reason for Consult: Covid 19 EMERGENT Consult: No Notified: Yes Date Notified: 12/21/20 Time Notified: 09:15 Method of Notification: Provider Initiated Reason For Visit: COVID POSITIVE Diagnosis Discharge Diagnosis (1) Pneumonia due to COVID-19 virus: Status: Acute Code(s): U07.1 - COVID-19; J12.82 - Pneumonia due to coronavirus disease 2019 (2) Respiratory failure: Status: Acute Code(s): J96.90 - Respiratory failure, unspecified, unspecified whether with hypoxia or hypercapnia Qualifiers: Chronicity: acute Respiratory failure complication: hypoxia Qualified Code(s): J96.01 - Acute respiratory failure with hypoxia Medications at Discharge Home Medications Zyrtec-D DAILY 12/19/20 lisinopril 12/19/20 metformin 500 mg PO BID 12/19/20 pravastatin 10 mg PO QHS 12/19/20 Hospital Course Operations None Procedures None Summary of Care Provided Minutes Spent on Discharge: 40 Hospital Course: Per HPI: JAYDA MORE, is a 65 M with a significant history of hypertension; diabetes mellitus; asthma who presents to [place] with a Covid-like symptoms. Patient was at [facility] ED 2 times. His rapid Covid antigen at [place] ED was negative. His PCR came back to be positive. The first time he was sent home and then called back in for monoclonal antibody infusion. On his second visit patient was hypoxic and required 4 L of nasal cannula oxygen to maintain appropriate s aturation. Patient reported that his Covid-like symptoms has progressed. It started about 6 days prior to presenting to [facility] ED. He described the symptoms as shortness of breath; disequilibrium with walking; muscle aches; poor appetite; dysgeusia; and dry cough. He denies any nausea vomiting, diarrhea or constipation. Hospital Course: 1. Acute respiratory failure secondary to COVID-19 pneumonia -Appreciate infectious disease and pulmonology assistance -Continue with baricitinib, he has completed remdesivir, he completed 10 doses of Decadron as well -He has completed 7 days of Zosyn -Encourage incentive spirometry and ambulation. He seems better today sitting up in the chair with nasal cannula -CBC and CMP daily -PT and OT following -CTA was negative for PE -Continue to monitor kidney function and to continue with Lasix as needed -He has significantly improved over the course the last several days. He is currently maintaining his oxygen saturations on room air and needs only 2 to 3 L with ambulation. He has completed remdesivir and Decadron as well as a course of antibiotics. I discussed with him the possibility of discharge today and he expressed understanding of the risk and benefits of going home and he would like to go home today with oxygen. I did discuss with him how important it is to continue doing pulmonary toileting while at home to ensure that he does not present back to the hospital. I do recommend that he follow-up with his PCP in 3 to 5 days as well as receive the Covid vaccine. 3. Diabetes mellitus type II -Continue AC at bedtime blood sugars with sliding scale insulin as ordered -Continue to hold Metformin -Continue with long-acting insulin and will make adjustments as necessary 4. CKD stage IIIb -Stable patient at baseline creatinine -CMP daily Physical Exam Const alert, oriented x3 and no apparent distress General Appearance: cooperative HEENT normocephalic and moist oral mucous membranes Eyes PERRL, EOMs intact bilaterally and conjunctivae normal Neck supple and no JVD Resp normal respiratory effort, no retractions and no use of accessory muscles Auscultation: diminished lung sounds; Negative for crackles, rales, rhonchi or wheezes Cardio regular rate, regular rhythm, S1 normal heart sound, S2 normal heart sound and no murmurs GI normal to inspection, nondistended, normoactive bowel sounds, soft to palpation, non-tender and non-distended; Negative for hepatosplenomegaly Extremity no clubbing, cyanosis or edema Skin no rashes or lesions noted Neuro no focal motor deficits and no sensory deficits noted Psych affect normal Appearance: appropriate Medical Records Data Medical Nutrition Assessment Dietitian: Malnutrition Criteria Met Start: 12/19/20 09:54 Freq: Status: Active Protocol: Document 12/27/20 14:49 RMA (Rec: 12/27/20 14:49 RMA [id number]) Nutrition Malnutrition Evidence of Malnutrition Exists Yes Malnutrition (severe): Acute Illness/Injury Evidenced By Suboptimal Energy Intake ( Severe),Weight Loss (Severe) Clinical Problem Acute Disease or Injury Related Malnutrition Etiology severe, acute malnutrition related to decreased energy intake d/t acute COVID-19 illness Signs/Symptoms as evidenced by PO intake meeting <50% of estimated nutritional needs >5 days and 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 Problem Recommendation Dietitian Recommendations/Changes Will continue carbohydrate controlled diet w/ 120mL glucerna ONS w/meals for additional calories/protein if consumed Weight / BMI Weight Weight: 278 lb 10.629 oz Body Mass Index (BMI) 41.1 ABG / Lab / Microbiology Data Result Diagrams: 12/29/20 06:45 12/31/20 05:56 Laboratory: Laboratory Results - last 24 hr 12/30/20 17:50: POC Glucose 116 H 12/30/20 20:33: POC Glucose 257 H 12/31/20 05:56: Sodium 137, Potassium 4.1, Chloride 105, Carbon Dioxide 27.0, Anion Gap 5, BUN 39 H, Creatinine 1.36 H, Estim Creat Clear Calc 55.60, Est GFR (MDRD) Af Amer 68, Est GFR (MDRD) Non-Af 56 L, BUN/Creatinine Ratio 28.7 H, Glucose 87, Calcium 8.8 12/31/20 12:32: POC Glucose 198 H Microbiology: Microbiology 12/26/20 14:35 Sputum, Expectorated/Coughed Gram Stain - Final 12/26/20 14:35 Sputum, Expectorated/Coughed Respiratory Culture - Final Presumptive C albicans 12/19/20 20:40 Urine, Clean Catch Legionella Antigen - Final 12/19/20 20:40 Urine, Clean Catch Streptococcus pneumoniae Antigen (M - Final D/C Instructions Discharge Diet: Low fat / Low cholesterol and Carb Control Diet Call your doctor if you observe: Fever of 101 or Higher, Shortness of breath, Dizziness, Fainting spells, Swelling in the ankles, Chest pain and Increased palpitations (irregular heartbeat) Meaningful Use Info Meaningful Use Diagnoses (Choose all that apply): None applicable Discharge Plan Admission Admit Date/Time: 12/19/20 06:11 Attending Provider: Gorge Kerr Primary Care Provider: John Krishna Consulting Providers: Evin Méndez ; [employer] Discharge Orders/Prescriptions Prescriptions: Continued metformin 500 mg Tablet 500 mg PO BID RF: 0 pravastatin 10 mg Tablet 10 mg PO QHS RF: 0 Zyrtec-D DAILY RF: 0 lisinopril RF: 0 Referrals / Follow Up: John Krishna MD [Primary Care Provider] - Within 1 Week Disposition Disposition (needs filled in before D/C Order can be placed): Home, Self Care Charges/Coding Visit Charges Inpatient E&M: 21646 Disch Hosp
[2020-12-31] MEDS: Acetaminophen 325 MG Tablet 650 MG PO (16:34)
--- NOTE | 2021-01-02 14:39 | CASEMGMT ---
Addendum entered by Oliva Lopes 01/02/21 16:15: STEVIE LILLY received call back from patient. Patient states he is doing well and feeling better. Still has coughing spells. Patient states he was to follow-up with a doctor at hospital. Per Dr. Gonzalez's note, patient to see him in 4-6 weeks. STEVIE LILLY provided patient with Dr. Gonzalez's office number. Patient voiced understanding. Patient had no further questions or concerns. Original Note: STEVIE LILLY Discharge Follow-up Phone Call: CARMEN: Jacob Strata: 2 Call Date: 01/02/21 Discharge Date: 12/31/20 Time of Call: 1439 Duration: 1 min Admitting Diagnosis: COVID STEVIE LILLY attempted to complete follow-up phone call after recent hospitalization. No answer, voice message left with return contact information.
== END 2020-12-31 16:52 | disposition home or self-care (01) | DRG 137 ==
PROVIDERS: Internal Medicine; Internal Medicine Critical Care Medicine; Nurse Practitioner Family; Admitting Provider Hospitalist; PCP Family Medicine; Visit Provider Family Medicine
DX: U07.1 COVID-19 (principal); J12.82 Pneumonia due to coronavirus disease 2019; J96.01 Acute respiratory failure with hypoxia; I12.9 Hypertensive chronic kidney disease with stage 1 through stage 4 chronic kidney disease, or unspecified chronic kidney disease; N18.32 Chronic kidney disease, stage 3b; E43 Unspecified severe protein-calorie malnutrition; E87.1 Hypo-osmolality and hyponatremia; Z87.891 Personal history of nicotine dependence; Z68.41 Body mass index [BMI] 40.0-44.9, adult; D69.6 Thrombocytopenia, unspecified; E11.65 Type 2 diabetes mellitus with hyperglycemia; E78.5 Hyperlipidemia, unspecified; E66.01 Morbid (severe) obesity due to excess calories; E11.22 Type 2 diabetes mellitus with diabetic chronic kidney disease; Z28.3 Underimmunization status; H54.7 Unspecified visual loss; J45.909 Unspecified asthma, uncomplicated; Z82.3 Family history of stroke
CPT/HCPCS: 36415; 36600; 71275; 80048; 80053; 82728; 82803; 82962; 83615; 83735; 84145; 85025; 85379; 86140; 87070; 87205; 87449; 87635; 87641; 94660; 94762; 97110; 97162; 97166; 97530; 97535; 97802; 97803; 99251; J7050; Q9967; U0005; 90686; A4216; G0463; J0696; J1940; U0003

== ENCOUNTER 2021-03-13 08:15 | Outpatient (CLI) | payer MEDICAID, SELFPAY ==
--- NOTE | 2021-03-14 09:41 | PFT ---
INTRODUCTION: The patient is a 65-year-old male that presents for pulmonary function studies post COVID-19. Respiratory therapy reported good patient effort. Bronchodilators were used during testing. INTERPRETATION: Forced expiration spirometry demonstrates no evidence of a large airways obstructive ventilatory defect. There is no significant response to aerosolized bronchodilators. Spirograms are of good quality and plateau normally. Body plethysmography was performed and revealed a decreased TLC to 2.78 L, 44% of predicted, indicative of a severe restrictive ventilatory impairment. The remainder of the lung volumes are symmetrically reduced. Diffusing capacity by single breath CO is reduced at 46% of predicted. IMPRESSION: Severe restrictive ventilatory impairment with symmetric reduction in diffusing capacity.
== END 2021-03-13 23:59 | disposition short-term general hospital (02) ==
LOC: PSN 08:18
PROVIDERS: PCP Family Medicine; Referring Provider Nurse Practitioner Acute Care; Visit Provider Nurse Practitioner Acute Care
DX: U07.1 COVID-19 (principal)
CPT/HCPCS: 94060; 94726; 94729

== ENCOUNTER 2021-04-22 08:55 | Outpatient (CLI) | payer MEDICAID, SELFPAY ==
--- NOTE | 2021-04-22 08:59 | CT_ITS ---
STUDY: CT CHEST WITHOUT CONTRAST REASON FOR EXAM: Male, 65 years old. Evaluation for ILD -- High Resolution Scan RADIATION DOSAGE (If Supplied By Facility): CTDIvol = ( 22.71 ) mGy, DLP = ( 716.20 ) mGycm TECHNIQUE: Transaxial imaging was performed without the administration of intravenous contrast material. Individualized dose optimization techniques were used for this CT. COMPARISON: None. FINDINGS: Bilateral upper lobe linear scarring. Some dependent bibasilar atelectasis. There is no demonstrated pleural abnormality. Normal heart and pericardium. There are calcifications of the coronary arteries. Normal mediastinum. Normal hilar regions. Normal unenhanced pulmonary arteries. Normal aorta arch and descending thoracic aorta. Normal osseous structures. Irregularity of the contour of the liver suggestive of early or mild cirrhosis. Suspect splenomegaly likely from portal hypertension. CT/Chest without Contrast IMPRESSION: 1. Bilateral subpleural scarring but no CT evidence of idiopathic pulmonary fibrosis. 2. Suspect cirrhosis with portal hypertension. Electronically Signed: Harjeet Herrera MD at 11:57 EST ,
== END 2021-04-22 23:59 | disposition home or self-care (01) ==
LOC: CT 08:56
PROVIDERS: PCP Family Medicine; Visit Provider Internal Medicine Critical Care Medicine
DX: J96.01 Acute respiratory failure with hypoxia (principal); J98.4 Other disorders of lung
CPT/HCPCS: 71250

== ENCOUNTER 2021-04-25 12:24 | Outpatient (CLI) | payer MEDICAID, SELFPAY ==
--- NOTE | 2021-04-25 12:26 | ECHOCS_ITS ---
Reason For Study: Dyspnea/SOB Procedure This was a 2D Doppler, Color Flow transthoracic echocardiogram. The study was technically difficult. Contrast injection was performed. Exam performed in department. Left Ventricle Normal LV size. D shaped septum in systole and diastole. Left ventricular systolic function is normal. The estimated ejection fraction is 65 %. No evidence for diastolic dysfunction. No regional wall motion abnormalities noted. Right Ventricle Mildly dilated right ventricle. Normal systolic function. Atria Normal left atrium. Normal right atrium. No doppler evidence for ASD. Mitral Valve There is no mitral annular calcification. Normal mitral valve. Trivial mitral valve insufficiency. Tricuspid Valve Normal tricuspid valve. Trivial tricuspid valve insufficiency. Unable to estimate RV systolic pressure due to insufficient tricuspid regurgitant envelope. Aortic Valve Trisinus/trileaflet aortic valve. Mild focal aortic valve calcification. Pulmonic Valve The pulmonic valve is not well visualized. Trivial pulmonic valve insufficiency. Great Vessels Normal sized aortic root. Pericardium/Pleural No pericardial effusion. Medication 22 gauge I.V. with prn adaptor inserted into right arm. Diluted definity 2ml given slow IV push to enhance endocardial definition. MMode/2D Measurements & Calculations LVIDd: 4.6 cm IVSd: 1.2 cm Ao root diam: 3.4 cm LVIDs: 2.5 cm LVPWd: 1.2 cm LA dimension: 4.3 cm RVDd: 3.9 cm FS: 44.6 % LAV(MOD-bp): 56.1 ml LA A4 area: 18.3 cm2 RA A4 area: 12.5 cm2 LAV(MOD-bp) Indexed: 23.1 ml/m2 LAV(MOD-sp2): 58.1 ml LAV(MOD-sp4): 48.0 ml Time Measurements MV dec time: 0.25 sec Doppler Measurements & Calculations MV E max amor: 92.7 cm/sec Lat Peak E' Amor: 9.6 cm/sec Med Peak E' Amor: 8.3 cm/sec MV A max amor: 106.9 cm/sec E/E' lat: 9.6 E/E' med: 11.2 MV E/A: 0.87 MV V2 max: 108.7 cm/sec MV P1/2t max amor: 99.7 cm/sec Ao V2 max: 146.2 cm/sec MV max P.7 mmHg MV P1/2t: 78.3 msec Ao max P.6 mmHg MV V2 mean: 69.7 cm/sec MV dec slope: 372.7 cm/sec2 MV mean P.2 mmHg MV V2 VTI: 29.5 cm MVA(P1/2t): 2.8 cm2 LV V1 max: 104.9 cm/sec PA V2 max: 130.0 cm/sec LV V1 max P.4 mmHg ECHO/Echo Complete W/ Contrast Interpretation Summary The study was technically difficult. Contrast injection was performed. Left ventricular systolic function is normal. The estimated ejection fraction is 65 %. D shaped septum in systole and diastole. Mildly dilated right ventricle. Trivial mitral valve insufficiency. Trivial tricuspid valve insufficiency. Mild focal aortic valve calcification. Trivial pulmonic valve insufficiency. Unable to estimate RV systolic pressure due to insufficient tricuspid regurgita nt envelope. No evidence for diastolic dysfunction. Ordering Physician: Grupo Ho Referring Physician: Grupo Ho Performed By: Jose F Pop RCS
[2021-04-25 12:54] VITALS: PULSE 107; PULSE 108; PULSE 110; PULSE 111; PULSE 112; PULSE 76; PULSE 82; O2SAT 89; O2SAT 90; O2SAT 91; O2SAT 92; O2SAT 95; O2SAT 96
--- NOTE | 2021-04-26 10:35 | PCM.PSN.6M ---
PSN 6 Minute Walk Test 6 Minute Walk Test 6 Minute Walk Test: 6 Minute Walk Test PSN:6-Minute Walk Test Start: 04/25/21 12:33 Freq: Status: Active Protocol: RESP.6MINW Document 04/25/21 12:54 NILA (Rec: 04/25/21 12:56 NILA [id number]) 6 Minute Walk Test Date Performed 04/25/21 Time Performed 12:30 Height 5 ft 8 in Weight: 135.624 kg Weight in Pounds 299.[address]: Grupo Ho Assistive device used: Cane Pre-test Oxygen Delivery Method Room Air Pulse Ox (%) 95 Pulse Rate (60-100 beats/min) 76 Dyspnea Todd Scale (0-10) 0 Exertion Todd Scale (6-20) 6 1st minute Oxygen Delivery Method Room Air Pulse Ox (%) 92 Pulse Rate (60-100 beats/min) 112 H 2nd minute Oxygen Delivery Method Room Air Pulse Ox (%) 91 Pulse Rate (60-100 beats/min) 107 H 3rd minute Oxygen Delivery Method Nasal Cannula Pulse Ox (%) 90 Pulse Rate (60-100 beats/min) 110 H 4th minute Oxygen Delivery Method Room Air Pulse Ox (%) 90 Pulse Rate (60-100 beats/min) 112 H 5th minute Oxygen Delivery Method Room Air Pulse Ox (%) 89 Pulse Rate (60-100 beats/min) 111 H 6th minute Oxygen Delivery Method Room Air Pulse Ox (%) 89 Pulse Rate (60-100 beats/min) 108 H Dyspnea Todd Scale (0-10) 0.5 Exertion Todd Scale (6-20) 11 Post-test Oxygen Delivery Method Room Air Pulse Ox (%) 96 Pulse Rate (60-100 beats/min) 82 Full Laps Walked 10 Partial Lap, Number of Tiles Walked 0 Total Distance Walked (ft) 590 Interpretation Interpretation: The patient ambulated 590 feet over the course of 6 minutes beginning on room air with the use of a cane. Pretesting oxygen saturation was noted to be 95% on room air. With ambulation, the sarah oxygen saturation was 89%. This testing indicated the presence of impaired walk distance along with a significant exertional oxygen desaturation. Recommendations Recommendations: There is no indication for the use of supplemental oxygen at this time. However, close interval follow-up is recommended, given the degree of oxygen desaturation noted during this study.
== END 2021-04-25 23:59 | disposition home or self-care (01) ==
LOC: CVS 12:24
PROVIDERS: PCP Family Medicine; Referring Provider Internal Medicine Critical Care Medicine; Visit Provider Internal Medicine Critical Care Medicine
DX: R06.00 Dyspnea, unspecified (principal); R06.02 Shortness of breath
CPT/HCPCS: 93306; 94618; Q9957; A4216; C8929

== ENCOUNTER → 2021-08-10 | Outpatient (CLI) | payer MEDICAID, SELFPAY ==
[2021-08-10 14:44] LABS: Absolute Lymphocyte Count 1.26 X10^3/uL (0.83-4.51); Absolute Neutrophil Count 1.9 X10^3/uL (2.0-7.7); Basophil# 0.02 X10^3/uL; Basophil% 0.6 % (0-1); Eosinophil# 0.11 X10^3/uL; Eosinophils% 3.1 % (0-5); Hematocrit 36.9 % (40-54); Hemoglobin 12.4 g/dL (13.0-16.5); Lymphocyte # 1.26 X10^3/ul (0.83-4.51); Mean Corp Hgb Conc 33.6 g/dL (32-36); Mean Corpuscular Hgb 31.5 pg (27.0-32.0); Mean Corpuscular Volume 93.7 fL (80-94); Mean Platelet Vol. 10.5 fl (6.2-12.0); Monocyte# 0.24 X10^3/uL; Monocyte% 6.9 % (0-10); NRBC Flagged by Analyzer 0 % (0-5); Neutrophil # 1.85 X10^3/uL (2.7-7.7); Neutrophil % 52.8 % (47-70); POSITIVE COUNT YES; Platelet Count 78 K/mm3 (150-450); RBC Distribution Width CV 13.2 % (11.6-14.6); RBC Distribution Width SD 45.1 fl (35.1-43.9); Red Blood Count 3.94 M/mm3 (4.6-6.2); White Blood Count 3.5 K/mm3 (4.4-11.0)
[2021-08-10 14:48] LABS: Differential Indicated SCAN CRITERIA MET
[2021-08-10 14:54] LABS: Rheumatoid Factor < 10.0 IU/mL (<15)
[2021-08-10 15:07] LABS: Platelet Estimate MOD DEC (ADEQ)
[2021-08-14 20:05] LABS: ANTINUCLEAR ANTIBODIES DIRECT Negative (Negative)
[2021-08-15 12:16] LABS: CCP IgG Antibodies 4 units (0-19); Cytoplasmic Ab (C-ANCA) <1:20 titer (Neg:<1:20); Perinuclear Ab (P-ANCA) <1:20 titer (Neg:<1:20)
== END | disposition home or self-care (01) ==
LOC: PAVLAB 14:20
PROVIDERS: PCP Family Medicine; Referring Provider Internal Medicine Critical Care Medicine; Visit Provider Internal Medicine Critical Care Medicine
DX: J98.4 Other disorders of lung (principal)
CPT/HCPCS: 36415; 85025; 86038; 86200; 86225; 86235; 86256; 86431

== ENCOUNTER → 2021-09-20 | Outpatient (CLI) | payer MEDICAID, SELFPAY ==
[2021-09-20 12:30] VITALS: PULSE 103; PULSE 110; PULSE 111; PULSE 86; PULSE 89; PULSE 96; PULSE 98; O2SAT 90; O2SAT 91; O2SAT 92; O2SAT 94; O2SAT 95
--- NOTE | 2021-09-21 05:28 | WT_ITS ---
PSN 6 Minute Walk Test 6 Minute Walk Test 6 Minute Walk Test: 6 Minute Walk Test PSN:6-Minute Walk Test Start: 09/20/21 12:50 Freq: Status: Active Protocol: RESP.6MINW Document 09/20/21 12:30 EW (Rec: 09/20/21 12:54 EW [id number]) 6 Minute Walk Test Date Performed 09/20/21 Time Performed 12:30 Height 5 ft 9 in Weight: 136.078 kg Weight in Pounds 300.[address]: Grupo Ho Assistive device used: Cane Pre-test Oxygen Delivery Method Room Air Pulse Ox (%) 95 Pulse Rate (60-100 beats/min) 86 Dyspnea Todd Scale (0-10) 2 Exertion Todd Scale (6-20) 8 1st minute Oxygen Delivery Method Room Air Pulse Ox (%) 94 Pulse Rate (60-100 beats/min) 89 2nd minute Oxygen Delivery Method Room Air Pulse Ox (%) 92 Pulse Rate (60-100 beats/min) 103 H 3rd minute Oxygen Delivery Method Room Air Pulse Ox (%) 91 Pulse Rate (60-100 beats/min) 110 H 4th minute Oxygen Delivery Method Room Air Pulse Ox (%) 90 Pulse Rate (60-100 beats/min) 96 5th minute Oxygen Delivery Method Room Air Pulse Ox (%) 90 Pulse Rate (60-100 beats/min) 111 H Number of Rests Taken 1 6th minute Oxygen Delivery Method Room Air Pulse Ox (%) 90 Pulse Rate (60-100 beats/min) 110 H Post-test Oxygen Delivery Method Room Air Pulse Ox (%) 94 Pulse Rate (60-100 beats/min) 98 Dyspnea Todd Scale (0-10) 3 Exertion Todd Scale (6-20) 12 Full Laps Walked 14 Partial Lap, Number of Tiles Walked 0 Total Distance Walked (ft) 826 Interpretation Interpretation: Patient was able to travel only 826 feet over the course of 6 minutes on room air with the assistance of a cane and 1 break. Patient did experience signific ant desaturation from a baseline of 95% to as low as 90%. Patient also had tachycardia as high as 111 bpm. These findings are consistent with a respiratory limitation exercise tolerance. Recommendations Recommendations: No supplemental oxygen is indicated at this time. However, patient will need to be followed closely given level of desaturation
== END | disposition home or self-care (01) ==
LOC: PSN 12:32
PROVIDERS: PCP Family Medicine; Referring Provider Internal Medicine Critical Care Medicine; Visit Provider Internal Medicine Critical Care Medicine
DX: J98.4 Other disorders of lung (principal)
CPT/HCPCS: 94618

== ENCOUNTER → 2021-09-25 | Outpatient (CLI) | payer MEDICAID, SELFPAY ==
--- NOTE | 2021-09-27 11:39 | PFT_ITS ---
INTRODUCTION: The patient is a 65-year-old male that presents for pulmonary function studies. Respiratory therapy reported good patient effort. Bronchodilators were used during testing. INTERPRETATION: Forced expiration spirometry demonstrates no evidence of a large airways obstructive ventilatory defect. There was no significant response to aerosolized bronchodilators. Spirograms are of good quality and plateau normally. Body plethysmography was performed and revealed a decreased TLC to 3.21 L, 50% of predicted, indicative of a severe restrictive ventilatory impai rment. Diffusing capacity by single breath CO was reduced at 46% of predicted. IMPRESSION: Severe restrictive ventilatory impairment with symmetric reduction in diffusing capacity.
== END | disposition home or self-care (01) ==
LOC: PSN 09:32
PROVIDERS: PCP Family Medicine; Visit Provider Internal Medicine Critical Care Medicine
DX: J98.4 Other disorders of lung (principal)
CPT/HCPCS: 94060; 94726; 94729

== ENCOUNTER → 2023-05-07 | Outpatient (CLI) | payer MEDICARE, SELFPAY ==
[2023-05-07 12:44] VITALS: PULSE 101; PULSE 110; PULSE 111; PULSE 114; PULSE 118; PULSE 87; PULSE 90; O2SAT 92; O2SAT 93; O2SAT 94; O2SAT 95; O2SAT 97; O2SAT 98
--- NOTE | 2023-05-09 08:53 | PCM.PSN.6M ---
PSN 6 Minute Walk Test 6 Minute Walk Test 6 Minute Walk Test: 6 Minute Walk Test PSN:6-Minute Walk Test Start: 05/07/23 12:44 Freq: Status: Active Protocol: RESP.6MINW Document 05/07/23 12:44 ALFREDITO (Rec: 05/07/23 12:46 [email or web address] [id number]) 6 Minute Walk Test Date Performed 05/07/23 Time Performed 12:30 Height 5 ft 9 in Weight: 273 lb Weight in Pounds 273.[address]: Anna Pope PATIENT CARE SPECIALIST Assistive device used: Cane Pre-test Oxygen Delivery Method Room Air Pulse Ox 98 Pulse Rate (60-100) 87 Dyspnea Todd Scale (0-10) 0 Exertion Todd Scale (6-20) 6 1st minute Oxygen Delivery Method Room Air Pulse Ox 97 Pulse Rate (60-100) 101 H 2nd minute Oxygen Delivery Method Room Air Pulse Ox 95 Pulse Rate (60-100) 114 H 3rd minute Oxygen Delivery Method Room Air Pulse Ox 93 Pulse Rate (60-100) 111 H 4th minute Oxygen Delivery Method Room Air Pulse Ox 94 Pulse Rate (60-100) 110 H 5th minute Oxygen Delivery Method Room Air Pulse Ox 94 Pulse Rate (60-100) 114 H 6th minute Oxygen Delivery Method Room Air Pulse Ox 92 Pulse Rate (60-100) 118 H Dyspnea Todd Scale (0-10) 3 Exertion Todd Scale (6-20) 13 Post-test Oxygen Delivery Method Room Air Pulse Ox 97 Pulse Rate (60-100) 90 Full Laps Walked 14 Partial Lap, Number of Tiles Walked 5 Total Distance Walked (ft) 831 Interpretation Interpretation: The patient ambulated 831 feet over the course of 6 minutes beginning on room air with the use of a cane. Pretesting oxygen saturation was noted to be 98% on room air. With ambulation, the sarah oxygen saturation was 92%. This represents a significant exertional oxygen desaturation, consistent with a pulmonary limitation to exercise tolerance. Recommendations Recommendations: There is no indication for the use of supplemental oxygen at this time. However, close interval follow-up was recommended, given the degree of oxygen desaturation noted during the study.
== END | disposition home or self-care (01) ==
PROVIDERS: PCP Nurse Practitioner Family; Referring Provider Nurse Practitioner Acute Care; Visit Provider Nurse Practitioner Acute Care
DX: J96.01 Acute respiratory failure with hypoxia (principal)
CPT/HCPCS: 94618